=== PATIENT | male | born 1960 | race Caucasian/White ===

== ENCOUNTER 2019-07-11 11:45 | Emergency (ER) | payer OTHER, SELFPAY ==
[2019-07-11] VITALS (14 sets, daily range): BP systolic 127–156; BP diastolic 79–97; PULSE 85–111; RESP 18–27; TEMP 36.7; O2SAT 92–95
--- NOTE | ~2019-07-11 | CT_ITS ---
EXAMINATION: CTA chest PE protocol DATE: 07/11/2019 14:16 INDICATION: Shortness of breath, cough, right-sided chest pain TECHNIQUE: Computed tomography angiography (CTA) of the chest was performed with 100 mL Omnipaque-350 intravenous contrast timed to evaluate the pulmonary arteries. Coronal maximum intensity projection 3D-reconstructions were created by the technologist. Automated exposure control and iterative reconst ruction technique were employed. Exam dose: 660.27 mGy-cm total exam DLP. COMPARISON: 07/10/2021 view chest FINDINGS: There is diagnostic contrast enhancement of the pulmonary arteries and no evidence of pulmo nary embolism. Normal heart size. No pericardial or pleural effusion. No hilar or mediastinal mass lesion or lymphadenopathy. There is elevation of the right leaf of the diaphragm. There is mild atelectasis at the right lung ba se. Moderate emphysematous changes are noted. Normal morphology of the adrenal glands. There are healing anterior right third through fifth rib fractures. Diffuse idiopathic skeletal hyperostosis of the thoracic and lumbar spine. IMPRESSION: No evidence of pulmonary embolism Elevated right diaphragm and mild atelectasis at the right lung base Healing anterior right third through fifth rib fractures Reviewed, dictated and finalized at [facility]. Reviewed, dictated and finalized at [facility].
--- NOTE | ~2019-07-11 | XR_ITS ---
EXAMINATION: XR chest 2V EXAM DATE: 07/11/2019 13:13 INDICATION: Cough and shortness of breath. TECHNIQUE: Frontal and lateral projections of the chest obtained and reviewed. Comparison is made to prior examination from 10/24/2012. FINDINGS: The lungs are clear. There are no pleural effusions. The cardiomediastinal silhouette is within normal limits. There is no pneumothorax suspected. Mild to moderate-sized thoracolumbar endp late osteophytes. IMPRESSION: No acute cardiopulmonary findings. Reviewed, dictated and finalized at [facility].
--- NOTE | 2019-07-11 12:09 | ED.SOB ---
HPI - SOB/Dyspnea General Chief Complaint: Shortness of Breath/Dyspnea Stated Complaint: sob Time Seen by Provider: 07/11/19 12:02 Source: patient and RN notes reviewed Mode of arrival: ambulatory Limitations: no limitations History of Present Illness HPI Narrative: Pt is a 58 y/o male who presents to the ED with c/o intermittent SOB for roughly the past year. He notes that he was diagnosed with bronchitis in March of 2018, and states that he has had intermittent SOB ever since. Pt notes that he has been following with his PCP, Dr. Baron, for his symptoms, and states that he has been using an inhaler at home. He notes that he developed upper respiratory symptoms roughly 1 month ago, and states that he was evaluated by his PCP and placed on a Z-Lenin. Pt notes that his SOB is aggravated with exertion and laying down. He reports wheezing, a cough, and intermittent rt sided chest pain accompanying his SOB, but denies any fever, nausea, vomiting, or LE edema. Pt states that he only experiences pain in his chest when he coughs. He denies any recent travel. Pt notes that he smokes roughly 1 PPD. MD elicited complaint: shortness of breath Pertinent past history: other (bronchitis) Onset (ago): year(s) (1) Context: recent illness Exacerbating factors: lying flat and exertion Associated symptoms: chest pain (rt sided chest pain secondary to cough), cough and wheezing Related Data Allergies Allergy/AdvReac Type Severity Reaction Status Date / Time No Known Allergies Allergy Mild Verified 09/04/09 15:08 Review of Systems Review of Systems: All systems reviewed & are unremarkable except as noted in HPI and below Constitutional: Constitutional: Denies fever(s) Cardiovascular: Cardiovascular: Denies leg edema Respiratory: Respiratory: Reports cough, Reports pain with cough (rt sided chest pain secondary to cough), Reports dyspnea and Reports wheezing Gastrointestinal: Gastrointestinal: Denies nausea and Denies vomiting PMFSH Past Medical History Medical History (Updated 07/11/19 @ 14:56 by Eunice Chavez MD) Bronchitis HLD (hyperlipidemia) Surgical History Surgical History History of dental surgery Family History Family History (Updated 07/17/13 @ 08:43 by DOCTOR UNKNOWN) Other Diabetes mellitus Family history of arthritis Family history of mental disorder Family history of seizure disorder Hypertension Social History Social History Smoking packs per day: 1 Smoking cigarettes per day: 20.0 Smoking status: Current every day smoker Alcohol intake: current Exam Const: General: alert Orientation/consciousness: patient oriented x3 Eyes: Pupils: Equal, round and reactive pupils present Neck: Neck: normal visual inspection Chest: Chest palpation & inspection: normal inspection of the chest Resp: Effort & Inspection: normal respiratory effort and able to speak in complete sentences Auscultation: no rales, wheezes (intermittent audible) and diminished lung sounds on the right Cardio: Rate: regular rate Rhythm: regular rhythm Heart sounds: no murmurs GI: GI Palp: Yes Soft to palpation, No Tenderness to palpation present (GI) and No Guarding due to palpation present (GI) Back/Spine/Pelvis: Back: no CVA tenderness Skin: General skin exam: normal color Rashes: no rashes Neuro: General: patient oriented x3 and moves all extremities Course Reevaluation(s) Reevaluation #1: Patient states he feels mildly better but he is still sob. I discussed with patient and no wheezing heard to explain sob so I recommend CT. HE is agreeable to rule out occult pneumonia or PE Date: 07/11/19 Time: 14:01 Reevaluation #2: I have discussed with patient CT shows healing rib fractures, emphysema. He states he fell a couple of months ago so this explains his pain to right side of chest. Date: 07/11/19 Time: 14
--- NOTE | 2019-07-11 12:21 | ECG_ITS ---
Measurements Intervals [place] Rate: 114 P: 50 WA: 159 QRS: 39 QRSD: 104 T: 35 QT: 320 QTc: 442 Interpretive Statements SINUS TACHYCARDIA DELAYED PRECORDIAL R/S TRANSITION ABNORMAL ECG Electronically Signed On 07-11-2019 12:58:57 CDT by Junior Adkins D.O.
[2019-07-11 12:42] LABS: Basophils Absolute Auto 0.1 K/mm3 (0.0-0.1); Basophils Percent Auto 1.9 % (0.2-1.2); Eosinophils Absolute Auto 0.2 K/mm3 (0-0.3); Hematocrit 46.9 % (42.0-52.0); Hemoglobin 15.6 g/dL (14.0-18.0); Immature Granulocyte Absolute 0.02 K/mm3 (0.00-0.031); Immature Granulocyte Percent A 0.3 % (0-0.5); Lymphocytes Absolute Auto 2.62 K/mm3 (0.9-3.2); Lymphocytes Percent Auto 37.6 % (18.3-44.2); Mean Corpuscular HGB Conc 33.3 g/dl (32-36); Mean Corpuscular Hemoglobin 33.4 pg (26-34); Mean Corpuscular Volume 100.4 fl (80-100); Mean Platelet Volume 8.9 fl (7.4-10.4); Monocytes Absolute Auto 0.6 K/mm3 (0.1-0.6); Monocytes Percent Auto 9.2 % (2.6-8.5); Neutrophils Absolute Auto 3.3 K/mm3 (1.3-6.7); Platelet Count Result 363 k/mm3 (150-375); Red Blood Count 4.67 M/mm3 (4.6-6.20); Red Cell Distribution Width 13.8 % (11.5-14.5)
[2019-07-11 12:47] LABS: Alveolar/Arterial O2 Gradient 35.1 mmHg; Base Excess ABG 0.7 mEq/l (+/-2.0); Carboxyhemoglobin 5.4 % THb (0-2.0); Fractional Inspired Oxygen 21 %; HCO3 ABG 25.7 mEq/l (22.0-26.0); Methemoglobin ABG 0.3 %THb (0-1.5); Oxygen Content ABG 19.1 %vol (16.0-22.0); Oxygen Saturation ABG 92.5 % (95.0-100.0); Oxyhemoglobin 86.8 % THb (90.0-100.0); PCO2 ABG 42.2 mmHg (35.0-45.0); PO2 ABG 64.1 mmHg (80.0-100.0); PO2 FiO2 Ratio Arterial Blood 3.05 %; Reduced Hemoglobin 7.5 %THb (0-5.0); Total Hemoglobin 15.7 g/dL (12.0-18.0); pH ABG 7.402 (7.350-7.450)
[2019-07-11 12:48] LABS: Device ROOM AIR; Modified Allen's Test Pass; Site Drawn RIGHT RADIAL
[2019-07-11] MEDS: ALBUTEROL SULFATE NEB 2.5 MG/0.5 ML INH 5 MG INHALATION (12:48)
[2019-07-11] MEDS: IPRATROPIUM BR 0.02% INH SOLN 0.5 MG/2.5 ML VIAL INHALATION (12:49)
[2019-07-11] MEDS: predniSONE 20 MG TABLET 60 MG PO (12:51)
[2019-07-11 12:55] LABS: Lactic Acid Reflex 1.8 mmol/L (0.7-2.1)
[2019-07-11 12:55] LABS: Alanine Aminotransferase 50 U/L (4-50); Alkaline Phosphatase 96 U/L (38-126); Aspartate Amino Transferase 61 U/L (17-59); Bilirubin,Total 0.4 mg/dL (0.2-1.3); Blood Urea Nitrogen 11 mg/dL (9-20); Calcium 8.8 mg/dL (8.4-10.2); Carbon Dioxide 28 mmol/L (22-30); Chloride 103 mmol/L (98-107); Estimated CRCL calculation 100 ml/min; Estimated Glomerular Filt Rate > 60; Glucose 95 mg/dL (75-110); Sodium 139 mmol/L (137-145)
== END 2019-07-11 15:13 | disposition home or self-care (01) ==
PROVIDERS: Emergency Provider General Practice; PCP Orthopaedic Surgery
DX: S22.41XA Multiple fractures of ribs, right side, initial encounter for closed fracture (principal); R00.0 Tachycardia, unspecified; F17.210 Nicotine dependence, cigarettes, uncomplicated; X58.XXXA Exposure to other specified factors, initial encounter
CPT/HCPCS: 36415; 36600; 71046; 71275; 80053; 82375; 82805; 83050; 83605; 85025; 87804; 93005; 99284; J7512; Q9967

== ENCOUNTER 2022-06-18 15:50 | Observation (INO) | payer MEDICARE, MEDICAID, SELFPAY ==
[2022-06-18] VITALS (9 sets, daily range): BP systolic 127–177; BP diastolic 88–96; PULSE 70–120; RESP 16–24; TEMP 36.8–37.4; O2SAT 94–98; BMI 30.1
--- NOTE | ~2022-06-18 | US_ITS ---
US venous doppler [facility] DATE: 06/19/2022 09:21 INDICATION: Swelling of the lower extremities TECHNIQUE: Real-time and color flow imaging and Doppler analysis of the veins of the lower extremitie s COMPARISON: None FINDINGS: The greater saphenous veins are patent. There is spontaneous and phasic flow and normal aug mentation and color flow signal and normal compression of the deep veins of the lower extremities. IMPRESSION: No evidence of deep venous thrombosis of the lower extremities Reviewed, dictated and finalized at [facility]. Reviewed, dictated and finalized at location [facility]. CE JUDGE
--- NOTE | ~2022-06-18 | XR_ITS ---
EXAMINATION: XR chest 2V DATE: 06/18/2022 17:18 INDICATION: Chest pain. Shortness of breath. TECHNIQUE: Frontal and lateral views of the chest were obtained. COMPARISON: Chest 2 views 07/11/2019, chest CT 07/11/2019 FINDINGS: There are lucencies in the lungs, consistent with emphysema. There is mild atelectasis at t he lung bases. No pleural effusion or pneumothorax. The heart size is normal. There are multiple old healed left rib fractures. IMPRESSION: 1. Emphysema. 2. Mild atelectasis at the lung bases. Reviewed, dictated and finalized at location [facility]. SPLITTER
--- NOTE | 2022-06-18 15:56 | ECG_ITS ---
Measurements Intervals [place] Rate: 109 P: 54 SD: 157 QRS: 14 QRSD: 102 T: 55 QT: 328 QTc: 442 Interpretive Statements SINUS TACHYCARDIA POOR R-WAVE PROGRESSION ABNORMAL RHYTHM ECG COMPARED TO ECG 07/11/2019 11:54:39 NO SIGNIFICANT CHANGES Electronically Signed On 06-19-2022 7:49:44 [employer] by Bhupinder Khan M.D.
[2022-06-18 16:15] LABS: Basophils Absolute Auto 0.1 K/mm3 (0.0-0.1); Basophils Percent Auto 0.6 % (0.2-1.2); Eosinophils Absolute Auto 0.2 K/mm3 (0-0.3); Eosinophils Percent Auto 1.7 % (0-4.4); Hematocrit 34.3 % (42.0-52.0); Hemoglobin 11.7 g/dL (14.0-18.0); Immature Granulocyte Absolute 0.09 K/mm3 (0.00-0.031); Immature Granulocyte Percent A 0.7 % (0-0.5); Lymphocytes Percent Auto 36.8 % (18.3-44.2); Mean Corpuscular HGB Conc 34.1 g/dl (32-36); Mean Corpuscular Hemoglobin 33.9 pg (26-34); Mean Corpuscular Volume 99.4 fl (80-100); Mean Platelet Volume 8.3 fl (7.4-10.4); Monocytes Absolute Auto 1.2 K/mm3 (0.1-0.6); Monocytes Percent Auto 9.4 % (2.6-8.5); Neutrophils Absolute Auto 6.5 K/mm3 (1.3-6.7); Neutrophils Percent Auto 50.8 % (45.5-73.1); Platelet Count Result 463 k/mm3 (150-375); Red Blood Count 3.45 M/mm3 (4.6-6.20); Red Cell Distribution Width 14.4 % (11.5-14.5); White Blood Count 12.8 K/mm3 (4.5-10.0)
[2022-06-18] MEDS: methylPREDNISolone SOD SUCC 125 MG VIAL IV PUSH (16:37)
[2022-06-18] MEDS: ALBUTEROL SULFATE NEB 2.5 MG/3 ML INH INHALATION ×2 (16:57→19:44)
[2022-06-18 17:42] LABS: NT Pro B Type Natriuretic Pept 907 pg/mL (19.9-100)
[2022-06-18 18:19] LABS: Influenza A QL RT-PCR Negative (Negative); Influenza B QL RT-PCR Negative (Negative); SARS-CoV-2 RNA PCR Negative
[2022-06-18 18:27] LABS: Alanine Aminotransferase 26 U/L (6-50); Albumin Level 3.7 g/dL (3.5-5.1); Alkaline Phosphatase 85 U/L (38-126); Anion Gap 10 mmol/L (8-16); Aspartate Amino Transferase 30 U/L (17-59); Bilirubin,Total 0.3 mg/dL (0.2-1.3); Blood Urea Nitrogen 33 mg/dL (9-20); Calcium 8.5 mg/dL (8.4-10.2); Carbon Dioxide 25 mmol/L (22-30); Chloride 104 mmol/L (98-107); Estimated CRCL calculation 76 ml/min; Estimated Glomerular Filt Rate > 60; Glucose 78 mg/dL (65-110); Potassium 4.6 mmol/L (3.4-5.0); Sodium 139 mmol/L (137-145)
--- NOTE | 2022-06-18 18:55 | ED.GENADULT ---
HPI - General Adult General Chief complaint: Shortness of Breath/Dyspnea Stated complaint: sob Time Seen by Provider: 06/18/22 16:08 Source: patient Mode of arrival: ambulatory Limitations: no limitations History of Present Illness HPI narrative: 61-year-old with a history of hypertension, COPD, respiratory failure with a complaint of shortness of breath for past few weeks was admitted to [facility] and discharged 2 days ago he still feels short of breath. He denies any fever or chest pain at this time. He states that his legs are swollen. He was given prescriptions at [facility] and he is not sure about the name of the medication. He denies any fever or cough. Onset (ago): week(s) Severity: moderate Pain Consistency: constant Relieving factors: none Exacerbating factors: none Associated symptoms: denies other symptoms Related Data Allergies Allergy/AdvReac Type Severity Reaction Status Date / Time No Known Allergies Allergy Mild Verified 09/04/09 15:08 Review of Systems Review of Systems: All systems reviewed & are unremarkable except as noted in HPI and below Constitutional: Constitutional: Reports no additional constitutional complaints Eyes: Eyes: Reports no additional eye complaints ENT: Reports system reviewed and no additional complaints, except as documented Cardiovascular: Cardiovascular: Reports no additional cardiovascular complaints Respiratory: Respiratory: Reports as per HPI Gastrointestinal: Gastrointestinal: Reports no additional gastrointestinal complaints Genitourinary: Genitourinary: Reports no additional male genitourinary complaints Musculoskeletal: Musculoskeletal: Reports no additional musculoskeletal complaints PMFSH Past Medical History Medical History Bronchitis HLD (hyperlipidemia) Surgical History Surgical History History of dental surgery Family History Family History Other Diabetes mellitus Family history of arthritis Family history of mental disorder Family history of seizure disorder Hypertension Social History Social History Smoking packs per day: 1 Smoking cigarettes per day: 20.0 Smoking status: Current every day smoker Alcohol intake: current Exam Narrative: GENERAL: Well-appearing, well-nourished, and in no acute distress. HEAD: Normocephalic, atraumatic. EYES: PERRLA and EOMI. NECK: Supple. CHEST: Decreased air entry, HEART: Regular rate and rhythm. No murmur heard. Normal peripheral pulses. ABDOMEN: Soft, nontender, nondistended, normal active bowel sounds. EXTREMITIES: Normal range of motion. 2 plus edema SKIN: Warm, dry, no rash. NEURO: No focal deficits. Alert and oriented x3. PSYCH: Normal mood and affect. Course Course Emergency Course: Patient did receive IV Solu-Medrol and DuoNeb he started feeling better but he states he cannot manage at home reports to be admitted overnight. I did inform him about his lab work . Discussed with Debbie clement the patient Vital Signs Vital signs: Vital Signs Temperature 37.4 C 06/18/22 15:52 Pulse Rate 120 H 06/18/22 15:52 Respiratory Rate 24 H 06/18/22 15:52 Blood Pressure 177/94 H 06/18/22 15:52 Pulse Oximetry 95 06/18/22 15:52 Oxygen Delivery Room Air 06/18/22 15:52 Temperature 37.4 C 06/18/22 15:52 Pulse Rate 107 H 06/18/22 16:59 Respiratory Rate 19 06/18/22 16:59 Blood Pressure 127/92 H 06/18/22 16:40 Pulse Oximetry 96 06/18/22 16:40 Oxygen Delivery Room Air 06/18/22 16:22 Medical Decision Making [facility] Narrative Medical decision making narrative: 61-year-old with a history of COPD, CHF here with shortness of breath we will give her DuoNeb, IV Solu-Medrol obtain cardiac work-up. Differential Diagnosis Different
--- NOTE | 2022-06-18 19:30 | PM.IMHP ---
H&P: HPI History of Present Illness Date/Time: 06/18/22 19:30 Chief Complaint: Shortness of breath. Narrative: This is a 61-year-old male smoker with COPD, congestive heart failure, and history of DVT who presented to the emergency department from home for evaluation of shortness of breath. Patient provides the following history. He was recently admitted to [facility] and discharged 2 days ago with what sounds like a COPD exacerbation. He was still short of breath on discharge and he continues to have a nonproductive cough. His legs are swollen which is not necessarily unusual for him the thinks they may be a bit more swollen than usual. He also complains of a headache. He denies fever, chills, sweats, sinus congestion, sore throat, chest and pleuritic pain, orthopnea, paroxysmal nocturnal dyspnea, vomiting, and diarrhea. No known sick contacts. Vital signs were stable on arrival to the ED, he is not requiring oxygen. Pertinent labs include a WBC of 12.8, hemoglobin 11.7, normal electrolytes, proBNP 907. He tested negative for COVID and influenza. Chest x-ray shows emphysema and mild atelectasis at the lung bases. EKG showed sinus tachycardia without acute ST segment changes. He was given a nebulizer and a dose of IV Solu-Medrol in the ED but he did not feel much better and he requested admission. Review of Systems Review of Systems: Twelve systems were reviewed and are negative except for as per HPI. [facility] Past Medical History Medical History (Updated 06/18/22 @ 23:39 by Gisela Todd PA-C) Chronic obstructive pulmonary disease Deep venous thrombosis Heart failure of unknown type Hyperlipidemia Hypertension Tobacco abuse Surgical History Surgical History History of dental surgery Family History Family History Other Diabetes mellitus Family history of arthritis Family history of mental disorder Family history of seizure disorder Hypertension Social History Social History (Updated 06/18/22 @ 23:33 by Gisela Todd PA-C) Social History: Surrogate medical decision maker: None. Code status: Full code. Smoking packs per day: 1 Smoking cigarettes per day: 20.0 Smoking status: Current every day smoker Alcohol intake: current Alcohol use details: Social alcohol in moderation. Additional living arrangements comments: Lives in [place]. Additional occupation/education comments: Disabled. Meds Home Medications and Allergies Home Medications Medication Instructions Recorded Confirmed Type albuterol sulfate 90 mcg/actuation 2 puff inhalation QID PRN 07/11/19 06/18/22 Rx aerosol inhaler (ProAir HFA) shortness of breath or wheezing #8 grams prednisone 10 mg tablets in a dose See Taper PO DAILY 12 days #42 tabs 07/11/19 06/18/22 Rx pack budesonide-formoterol HFA 160 2 puff inhalation BID 06/18/22 06/18/22 History mcg-4.5 mcg/actuation aerosol inhaler (Symbicort) citalopram 20 mg tablet 20 mg PO DAILY 06/18/22 06/18/22 History cyclobenzaprine 10 mg tablet 10 mg PRN 06/18/22 06/18/22 History famotidine 40 mg tablet 10 mg PO HS 06/18/22 06/18/22 History fenofibrate micronized 200 mg 200 mg PO DAILY 06/18/22 06/18/22 History capsule fexofenadine 180 mg tablet 180 mg PO DAILY 06/18/22 06/18/22 History fluticasone 250 mcg-salmeterol 50 1 inh inhalation BID 06/18/22 06/18/22 History mcg/dose blistr powdr for inhalation (Advair Diskus) folic acid 1 mg tablet 1 mg PO DAILY 06/18/22 06/18/22 History furosemide 80 mg tablet 80 mg PO DAILY 06/18/22 06/18/22 History guaifenesin 600 mg tablet, 600 mg PO BID 06/18/22 06/18/22 History extended release 12 hr (Mucus Relief ER) hydroxyzine HCl 10 mg tablet 10 mg PO TID 06/18/22 06/18/22 History ipratropium bromide 17 2 puff inhalation 4-6XD 06/18/22 06/18/22 History mcg/actuation HFA aer
[2022-06-18] MEDS: LORazepam (*CRX) 1 MG TABLET PO (19:37)
[2022-06-18] MEDS: IPRATROPIUM BR 0.02% INH SOLN 0.5 MG/2.5 ML VIAL INHALATION (19:44)
[2022-06-19] VITALS (11 sets, daily range): BP systolic 141–162; BP diastolic 88–92; PULSE 66–104; RESP 18–22; TEMP 36.6–36.8; O2SAT 92–99
[2022-06-19] MEDS: FAMOTIDINE 10 MG TABLET PO ×2 (00:40→20:53)
[2022-06-19] MEDS: traZODone HCL 50 MG TABLET 100 MG PO ×2 (00:40→20:52)
[2022-06-19] MEDS: SIMVASTATIN 20 MG TABLET 40 MG PO ×2 (00:40→20:53)
[2022-06-19] MEDS: IPRATROPIUM BR 0.02% INH SOLN 0.5 MG/2.5 ML VIAL INHALATION ×4 (03:23→20:22)
[2022-06-19] MEDS: ALBUTEROL SULFATE NEB 2.5 MG/3 ML INH INHALATION ×4 (03:23→20:22)
--- NOTE | 2022-06-19 04:47 | PC.NURSE ---
Pt is a&o x4, able to make needs known. Pt is presenting with labored breathing, stating to be SOB. Pt's O2 sat on room air 89% per spot check. 1L n/c applied, O2 sat 92 - 93%. Pt reported improvement in quality of breathing. Pt comfortable in his bed and call light within the reach. Pt educated about COPD exacerbation, understanding verbalized.
[2022-06-19 06:59] LABS: Hematocrit 34.8 % (42.0-52.0); Hemoglobin 10.9 g/dL (14.0-18.0); Mean Corpuscular HGB Conc 31.3 g/dl (32-36); Mean Corpuscular Hemoglobin 32.9 pg (26-34); Mean Corpuscular Volume 105.1 fl (80-100); Mean Platelet Volume 9.6 fl (7.4-10.4); Platelet Count Result 380 k/mm3 (150-375); Red Blood Count 3.31 M/mm3 (4.6-6.20); Red Cell Distribution Width 14.6 % (11.5-14.5)
[2022-06-19] MEDS: UMECLIDINIUM BROMIDE 62.5 MCG ELLIPTA 1 PUFF INHALATION (07:06)
[2022-06-19] MEDS: FLUTICASONE/SALMETEROL 115-21 MCG INHALER 1 PUFF 2 PUFF INHALATION ×2 (07:06→20:24)
[2022-06-19 07:09] LABS: Anion Gap 4 mmol/L (8-16); Blood Urea Nitrogen 28 mg/dL (9-20); Calcium 8.9 mg/dL (8.4-10.2); Carbon Dioxide 29 mmol/L (22-30); Chloride 98 mmol/L (98-107); Estimated CRCL calculation 94 ml/min; Estimated Glomerular Filt Rate > 60; Glucose 124 mg/dL (65-110); Magnesium 1.5 mg/dL (1.6-2.3); Potassium 5.1 mmol/L (3.4-5.0); Sodium 131 mmol/L (137-145)
[2022-06-19] MEDS: FUROSEMIDE 80 MG TABLET PO (08:09)
[2022-06-19] MEDS: hydrOXYzine HCL 10 MG TABLET PO (08:09)
[2022-06-19] MEDS: POTASSIUM CHLORIDE 20 MEQ TABLET.ER PO (08:09)
[2022-06-19] MEDS: VITAMIN B CMPLX/VIT C/FOLIC AC 1 CAPSULE 1 CAP PO (08:10)
[2022-06-19] MEDS: THERAPEUTIC MULTIVITAMINS/MINERALS TAB (*BKC) 1 TABLET PO (08:10)
[2022-06-19] MEDS: PANTOPRAZOLE 40 MG TABLET PO (08:10)
[2022-06-19] MEDS: predniSONE 20 MG TABLET 40 MG PO (08:10)
[2022-06-19] MEDS: THIAMINE HCL 100 MG TABLET PO (08:10)
[2022-06-19] MEDS: PROPRANOLOL HCL 40 MG TABLET PO ×2 (08:10→20:52)
[2022-06-19] MEDS: LORATADINE 10 MG TABLET PO (08:12)
[2022-06-19] MEDS: guaiFENesin 12 HR 600 MG TABCR PO ×2 (08:12→20:53)
[2022-06-19] MEDS: FENOFIBRATE 160 MG TABLET PO (08:12)
[2022-06-19] MEDS: LOSARTAN POTASSIUM 25 MG TABLET PO ×2 (08:12→16:18)
[2022-06-19] MEDS: CITALOPRAM HYDROBROMIDE 20 MG TABLET PO (08:12)
[2022-06-19] MEDS: FOLIC ACID 1 MG TABLET PO (08:13)
--- NOTE | 2022-06-19 15:23 | PM.IMPN ---
Progress Note: A&P Assessment and Plan (1) COPD exacerbation: Code(s): J44.1 - Chronic obstructive pulmonary disease with (acute) exacerbation Status: Acute (2) Heart failure of unknown type: Code(s): I50.9 - Heart failure, unspecified Status: Acute (3) Hypertension: Code(s): I10 - Essential (primary) hypertension Status: Acute (4) Hyperlipidemia: Code(s): E78.5 - Hyperlipidemia, unspecified Status: Acute (5) Tobacco abuse: Code(s): Z72.0 - Tobacco use Status: Acute (6) Lower extremity edema: Code(s): R60.0 - Localized edema Status: Acute Plan Shortness of breath for past few weeks Acute cOPD exacerbation Solu Medrol given in the ER prednisone. Continue bronchodilators Possible CHF goes exacerbation Lower extremity edema venous duplex negative Hypertension Hyperlipidemia COPD Current tobacco abuse History of DVT BNP 907 Negative COVID and influenza Chest x-ray with emphysema and mild atelectasis at the lung bases DVT prophylaxis Lovenox Subjective Date/time seen: 06/19/22 15:23 Interval history: Feels a bit better today. Shortness of breath has improved. His as some cough. Does know his home medication. Review of Systems Review of Systems: All systems reviewed & are unremarkable except as noted in HPI and below Exam Narrative: General: Chronically ill-appearing male sitting at the side of the bed in no acute distress. On oxygen via nasal cannula HEENT: PERRL, EOMI. Sclera anicteric. Moist mucous membranes. Neck: Supple. No JVD or lymphadenopathy. Respiratory: He does not appear in respiratory distress and is speaking in full sentences. Lung sounds are diminished throughout with faint expiratory wheezing. Cardiovascular: Regular rate and rhythm with S1-S2. Gastrointestinal: Abdomen is soft, nontender, and nondistended with positive bowel sounds. Skin: Warm and dry. Skin changes of the lower legs bilaterally. Extremities: No cyanosis or clubbing. 2+ pitting edema to the knees. No palpable knots or cords. Equivocal Homans sign. Neurological: Alert. Cranial nerves 2-12 are grossly intact. No gross focal deficits to casual conversation. Psychiatric: Cooperative. Appropriate mood. Odd affect. Objective Data Vital Signs Vital Signs: Vital Signs - 24 hr 06/18/22 15:52 06/18/22 16:22 06/18/22 16:40 Temperature 99.3 F Pulse Rate 120 H 108 H Respiratory Rate 24 H 22 H Blood Pressure 177/94 H 127/92 H Pulse Oximetry 95 96 96 Oxygen Delivery Room Air Room Air Oxygen Flow Rate 06/18/22 16:59 06/18/22 19:46 06/18/22 19:47 Temperature Pulse Rate 107 H 98 98 Respiratory Rate 19 16 16 Blood Pressure Pulse Oximetry 98 Oxygen Delivery Room Air Oxygen Flow Rate 06/18/22 21:36 06/18/22 22:00 06/19/22 03:40 Temperature 98.2 F Pulse Rate 85 96 70 Respiratory Rate 20 22 H 22 H Blood Pressure 147/96 H 167/88 H Pulse Oximetry 96 94 Oxygen Delivery Oxygen Flow Rate 06/18/22 23:37 06/19/22 06:00 06/19/22 07:09 Temperature 98 F Pulse Rate 70 104 H 76 Respiratory Rate 22 H 20 18 Blood Pressure 162/88 H Pulse Oximetry 94 97 Oxygen Delivery Nasal Cannula Oxygen Flow Rate 1 06/19/22 08:10 06/19/22 14:04 06/19/22 14:00 Temperature 98.3 F Pulse Rate 97 78 69 Respiratory Rate 18 18 Blood Pressure 148/92 H Pulse Oximetry 99 Oxygen Delivery Oxygen Flow Rate Intake/Output Intake/Output: Intake & Output 06/16/22 06/17/22 06/18/22 06/19/22 23:59 23:59 23:59 23:59 Intake Total 360 Output Total 950 Balance -590 Meds/Results Medications: Active Medications Generic Name Dose Route Start Last Admin Trade Name Freq PRN Reason Stop Dose Admin Acetaminophen 650 mg 06/18/22 19:08 Acetaminophen 325 Mg Tablet PO Q4H PRN Mild Pain (1-3) or Fever Albuterol 2.5 mg 06/18/22 20:00 06/19/22 14:03 Albuterol Sulfate Neb 2
[2022-06-19] MEDS: MAGNESIUM SULF 2 GM/WATER 50ML 2 GM/50 ML BAG IVPB (16:14)
[2022-06-20] VITALS (15 sets, daily range): BP systolic 121–146; BP diastolic 80–88; PULSE 69–94; RESP 17–20; TEMP 36.4–36.9; O2SAT 92–93
[2022-06-20] MEDS: IPRATROPIUM BR 0.02% INH SOLN 0.5 MG/2.5 ML VIAL INHALATION ×4 (02:06→19:32)
[2022-06-20] MEDS: ALBUTEROL SULFATE NEB 2.5 MG/3 ML INH INHALATION ×4 (02:07→19:32)
[2022-06-20 06:38] LABS: Alanine Aminotransferase 23 U/L (6-50); Albumin Level 3.6 g/dL (3.5-5.1); Alkaline Phosphatase 74 U/L (38-126); Anion Gap 1 mmol/L (8-16); Aspartate Amino Transferase 27 U/L (17-59); Bilirubin,Total 0.9 mg/dL (0.2-1.3); Blood Urea Nitrogen 29 mg/dL (9-20); Calcium 9.1 mg/dL (8.4-10.2); Carbon Dioxide 33 mmol/L (22-30); Chloride 98 mmol/L (98-107); Estimated CRCL calculation 67 ml/min; Estimated Glomerular Filt Rate > 60; Glucose 81 mg/dL (65-110); Magnesium 1.9 mg/dL (1.6-2.3); Potassium 3.9 mmol/L (3.4-5.0); Sodium 132 mmol/L (137-145)
[2022-06-20 06:42] LABS: Basophils Percent Auto 0.3 % (0.2-1.2); Eosinophils Percent Auto 0.4 % (0-4.4); Hematocrit 33.7 % (42.0-52.0); Immature Granulocyte Absolute 0.05 K/mm3 (0.00-0.031); Immature Granulocyte Percent A 0.5 % (0-0.5); Lymphocytes Percent Auto 26.9 % (18.3-44.2); Mean Corpuscular HGB Conc 32.6 g/dl (32-36); Mean Corpuscular Hemoglobin 33.2 pg (26-34); Mean Corpuscular Volume 101.8 fl (80-100); Mean Platelet Volume 8.8 fl (7.4-10.4); Monocytes Percent Auto 8.8 % (2.6-8.5); Neutrophils Absolute Auto 6.8 K/mm3 (1.3-6.7); Neutrophils Percent Auto 63.1 % (45.5-73.1); Platelet Count Result 452 k/mm3 (150-375); Red Blood Count 3.31 M/mm3 (4.6-6.20); Red Cell Distribution Width 14.4 % (11.5-14.5); White Blood Count 10.8 K/mm3 (4.5-10.0)
[2022-06-20] MEDS: FLUTICASONE/SALMETEROL 115-21 MCG INHALER 1 PUFF 2 PUFF INHALATION ×2 (09:09→19:32)
[2022-06-20] MEDS: UMECLIDINIUM BROMIDE 62.5 MCG ELLIPTA 1 PUFF INHALATION (09:12)
[2022-06-20] MEDS: predniSONE 20 MG TABLET 40 MG PO (09:49)
[2022-06-20] MEDS: POTASSIUM CHLORIDE 20 MEQ TABLET.ER PO (09:49)
[2022-06-20] MEDS: ENOXAPARIN 40 MG/0.4 ML SYRINGE SUB-Q (09:51)
[2022-06-20] MEDS: CITALOPRAM HYDROBROMIDE 20 MG TABLET PO (09:51)
[2022-06-20] MEDS: FENOFIBRATE 160 MG TABLET PO (09:52)
[2022-06-20] MEDS: LORATADINE 10 MG TABLET PO (09:52)
[2022-06-20] MEDS: FUROSEMIDE 80 MG TABLET PO (09:52)
[2022-06-20] MEDS: FOLIC ACID 1 MG TABLET PO (09:52)
[2022-06-20] MEDS: hydrOXYzine HCL 10 MG TABLET PO ×3 (09:52→17:45)
[2022-06-20] MEDS: THERAPEUTIC MULTIVITAMINS/MINERALS TAB (*BKC) 1 TABLET PO (09:56)
[2022-06-20] MEDS: VITAMIN B CMPLX/VIT C/FOLIC AC 1 CAPSULE 1 CAP PO (09:56)
[2022-06-20] MEDS: THIAMINE HCL 100 MG TABLET PO (09:56)
[2022-06-20] MEDS: PANTOPRAZOLE 40 MG TABLET PO (09:56)
[2022-06-20] MEDS: LOSARTAN POTASSIUM 25 MG TABLET PO ×2 (09:56→17:45)
[2022-06-20] MEDS: PROPRANOLOL HCL 40 MG TABLET PO ×2 (10:02→22:03)
[2022-06-20] MEDS: guaiFENesin 12 HR 600 MG TABCR PO ×2 (14:22→22:03)
[2022-06-20] MEDS: HYDROcodone/acetaminophen (*CRX) 5-325 MG TABLET 1 TAB PO ×2 (15:27→22:06)
--- NOTE | 2022-06-20 16:35 | PM.IMPN ---
Progress Note: A&P Assessment and Plan (1) COPD exacerbation: Code(s): J44.1 - Chronic obstructive pulmonary disease with (acute) exacerbation Status: Acute (2) Heart failure of unknown type: Code(s): I50.9 - Heart failure, unspecified Status: Acute (3) Hypertension: Code(s): I10 - Essential (primary) hypertension Status: Acute (4) Hyperlipidemia: Code(s): E78.5 - Hyperlipidemia, unspecified Status: Acute (5) Tobacco abuse: Code(s): Z72.0 - Tobacco use Status: Acute (6) Lower extremity edema: Code(s): R60.0 - Localized edema Status: Acute Plan Shortness of breath for past few weeks Acute cOPD exacerbation Solu Medrol given in the ER prednisone. Continue bronchodilators on oral prednisone will slowly taper Possible CHF goes exacerbation resumed Lasix home doses swelling improving chest x-ray with emphysema mild atelectasis at lung bases Lower extremity edema venous duplex negative continue Lasix as ordered Hypertension Hyperlipidemia COPD Current tobacco abuse History of DVT BNP 907 Negative COVID and influenza Chest x-ray with emphysema and mild atelectasis at the lung bases DVT prophylaxis Lovenox Subjective Date/time seen: 06/20/22 16:35 Interval history: No overnight events. Breathing is better. Complains of pain in his left foot. Shortness of breath have improved. Review of Systems Review of Systems: All systems reviewed & are unremarkable except as noted in HPI and below Exam Narrative: General: Chronically ill-appearing male sitting at the side of the bed in no acute distress. On oxygen via nasal cannula HEENT: PERRL, EOMI. Sclera anicteric. Moist mucous membranes. Neck: Supple. No JVD or lymphadenopathy. Respiratory: He does not appear in respiratory distress and is speaking in full sentences. Lung sounds are diminished throughout No wheezes Cardiovascular: Regular rate and rhythm with S1-S2. Gastrointestinal: Abdomen is soft, nontender, and nondistended with positive bowel sounds. Skin: Warm and dry. Skin changes of the lower legs bilaterally. Extremities: No cyanosis or clubbing. 2+ pitting edema to the knees. No palpable knots or cords Neurological: Alert. Cranial nerves 2-12 are grossly intact. No gross focal deficits to casual conversation. Psychiatric: Cooperative. Appropriate mood. Odd affect. Objective Data Vital Signs Vital Signs: Vital Signs - 24 hr 06/19/22 20:07 06/19/22 20:24 06/19/22 20:25 Temperature 98.3 F Pulse Rate 66 75 Respiratory Rate 20 18 Blood Pressure 141/89 H Pulse Oximetry 94 92 Oxygen Delivery Room Air 06/19/22 20:00 06/20/22 02:07 06/19/22 20:37 Temperature Pulse Rate 75 73 79 Respiratory Rate 18 18 18 Blood Pressure Pulse Oximetry 92 Oxygen Delivery Room Air 06/20/22 06:00 06/20/22 02:20 06/20/22 09:11 Temperature 97.8 F Pulse Rate 72 72 74 Respiratory Rate 20 18 18 Blood Pressure 146/84 H Pulse Oximetry 93 Oxygen Delivery 06/20/22 09:21 06/20/22 10:02 06/20/22 09:50 Temperature Pulse Rate 75 90 90 Respiratory Rate 18 Blood Pressure 139/80 Pulse Oximetry Oxygen Delivery 06/20/22 09:52 06/20/22 13:16 06/20/22 13:32 Temperature Pulse Rate 77 80 Respiratory Rate 18 18 Blood Pressure Pulse Oximetry Oxygen Delivery Room Air 06/20/22 14:00 Temperature 98.4 F Pulse Rate 79 Respiratory Rate 20 Blood Pressure 124/84 Pulse Oximetry 93 Oxygen Delivery Intake/Output Intake/Output: Intake & Output 06/17/22 06/18/22 06/19/22 06/20/22 23:59 23:59 23:59 23:59 Intake Total 1250 480 Output Total 950 Balance 300 480 Meds/Results Medications: Active Medications Generic Name Dose Route Start Last Admin Trade Name Freq PRN Reason Stop Dose Admin Acetaminophen 650 mg 06/18/22 19:08 Acetaminophen 325 Mg Tablet PO Q4H PRN Mild Pain (1-3) or Fever
[2022-06-20] MEDS: NICOTINE (*PBKC) 7 MG PATCH 1 PATCH TRANSDERM (17:44)
[2022-06-20] MEDS: FAMOTIDINE 10 MG TABLET PO (22:03)
[2022-06-20] MEDS: traZODone HCL 50 MG TABLET 100 MG PO (22:03)
[2022-06-20] MEDS: SIMVASTATIN 20 MG TABLET 40 MG PO (22:03)
[2022-06-21] VITALS (13 sets, daily range): BP systolic 104–127; BP diastolic 60–84; PULSE 70–102; RESP 14–20; TEMP 36–36.6; O2SAT 92–94
[2022-06-21 05:59] LABS: Basophils Percent Auto 0.3 % (0.2-1.2); Eosinophils Absolute Auto 0.1 K/mm3 (0-0.3); Eosinophils Percent Auto 0.5 % (0-4.4); Hemoglobin 11.5 g/dL (14.0-18.0); Immature Granulocyte Absolute 0.06 K/mm3 (0.00-0.031); Immature Granulocyte Percent A 0.6 % (0-0.5); Lymphocytes Absolute Auto 3.21 K/mm3 (0.9-3.2); Lymphocytes Percent Auto 30.5 % (18.3-44.2); Mean Corpuscular HGB Conc 32.9 g/dl (32-36); Mean Corpuscular Hemoglobin 33.4 pg (26-34); Mean Corpuscular Volume 101.7 fl (80-100); Mean Platelet Volume 8.7 fl (7.4-10.4); Monocytes Percent Auto 9.1 % (2.6-8.5); Neutrophils Absolute Auto 6.2 K/mm3 (1.3-6.7); Platelet Count Result 459 k/mm3 (150-375); Red Blood Count 3.44 M/mm3 (4.6-6.20); Red Cell Distribution Width 13.9 % (11.5-14.5); White Blood Count 10.5 K/mm3 (4.5-10.0)
[2022-06-21 06:10] LABS: Alanine Aminotransferase 22 U/L (6-50); Albumin Level 3.7 g/dL (3.5-5.1); Alkaline Phosphatase 71 U/L (38-126); Anion Gap 2 mmol/L (8-16); Aspartate Amino Transferase 22 U/L (17-59); Bilirubin,Total 0.8 mg/dL (0.2-1.3); Blood Urea Nitrogen 35 mg/dL (9-20); Carbon Dioxide 34 mmol/L (22-30); Chloride 94 mmol/L (98-107); Estimated CRCL calculation 59 ml/min; Estimated Glomerular Filt Rate 56; Glucose 75 mg/dL (65-110); Magnesium 1.8 mg/dL (1.6-2.3); Sodium 130 mmol/L (137-145)
[2022-06-21] MEDS: HYDROcodone/acetaminophen (*CRX) 5-325 MG TABLET 1 TAB PO ×2 (06:52→13:15)
[2022-06-21] MEDS: hydrOXYzine HCL 10 MG TABLET PO ×3 (08:40→17:34)
[2022-06-21] MEDS: guaiFENesin 12 HR 600 MG TABCR PO ×2 (08:40→21:04)
[2022-06-21] MEDS: FOLIC ACID 1 MG TABLET PO (08:40)
[2022-06-21] MEDS: FUROSEMIDE 80 MG TABLET PO (08:40)
[2022-06-21] MEDS: predniSONE 20 MG TABLET 40 MG PO (08:40)
[2022-06-21] MEDS: CITALOPRAM HYDROBROMIDE 20 MG TABLET PO (08:40)
[2022-06-21] MEDS: LORATADINE 10 MG TABLET PO (08:40)
[2022-06-21] MEDS: THERAPEUTIC MULTIVITAMINS/MINERALS TAB (*BKC) 1 TABLET PO (08:40)
[2022-06-21] MEDS: POTASSIUM CHLORIDE 20 MEQ TABLET.ER PO (08:40)
[2022-06-21] MEDS: LOSARTAN POTASSIUM 25 MG TABLET PO ×2 (08:40→17:34)
[2022-06-21] MEDS: FENOFIBRATE 160 MG TABLET PO (08:40)
[2022-06-21] MEDS: THIAMINE HCL 100 MG TABLET PO (08:41)
[2022-06-21] MEDS: VITAMIN B CMPLX/VIT C/FOLIC AC 1 CAPSULE 1 CAP PO (08:41)
[2022-06-21] MEDS: PROPRANOLOL HCL 40 MG TABLET PO ×2 (08:41→21:04)
[2022-06-21] MEDS: PANTOPRAZOLE 40 MG TABLET PO (08:41)
[2022-06-21] MEDS: ENOXAPARIN 40 MG/0.4 ML SYRINGE SUB-Q (08:45)
[2022-06-21] MEDS: ALBUTEROL SULFATE NEB 2.5 MG/3 ML INH INHALATION ×3 (10:23→21:44)
[2022-06-21] MEDS: IPRATROPIUM BR 0.02% INH SOLN 0.5 MG/2.5 ML VIAL INHALATION ×3 (10:23→21:44)
[2022-06-21] MEDS: UMECLIDINIUM BROMIDE 62.5 MCG ELLIPTA 1 PUFF INHALATION (10:24)
[2022-06-21] MEDS: FLUTICASONE/SALMETEROL 115-21 MCG INHALER 1 PUFF 2 PUFF INHALATION ×2 (10:24→21:44)
--- NOTE | 2022-06-21 15:42 | PM.IMPN ---
Progress Note: A&P Assessment and Plan (1) COPD exacerbation: Code(s): J44.1 - Chronic obstructive pulmonary disease with (acute) exacerbation Status: Acute (2) Heart failure of unknown type: Code(s): I50.9 - Heart failure, unspecified Status: Acute (3) Hypertension: Code(s): I10 - Essential (primary) hypertension Status: Acute (4) Hyperlipidemia: Code(s): E78.5 - Hyperlipidemia, unspecified Status: Acute (5) Tobacco abuse: Code(s): Z72.0 - Tobacco use Status: Acute (6) Lower extremity edema: Code(s): R60.0 - Localized edema Status: Acute Plan Shortness of breath for past few weeks negative for COVID and influenza chest x-ray with emphysema and mild atelectasis at lung bases Acute cOPD exacerbation Solu Medrol given in the ER prednisone. Continue bronchodilators on oral prednisone will slowly taper Possible CHF goes exacerbation resumed Lasix home doses swelling improving chest x-ray with emphysema mild atelectasis at lung bases. Leg swelling improving. BNP 907 Lower extremity edema venous duplex negative continue Lasix as ordered Hypertension Hyperlipidemia COPD Current tobacco abuse History of DVT DVT prophylaxis Lovenox Subjective Date/time seen: 06/21/22 15:42 Interval history: no overnight events. Still cough and shortness of breath. Pain in left foot is improved. Shortness of breath is improving. Not back to baseline He states. Review of Systems Review of Systems: All systems reviewed & are unremarkable except as noted in HPI and below Exam Narrative: General: Chronically ill-appearing male sitting at the side of the bed in no acute distress. Off oxygen now HEENT: PERRL, EOMI. Sclera anicteric. Moist mucous membranes. Neck: Supple. No JVD or lymphadenopathy. Respiratory: He does not appear in respiratory distress and is speaking in full sentences. Lung sounds are diminished throughout No wheezes Cardiovascular: Regular rate and rhythm with S1-S2. Gastrointestinal: Abdomen is soft, nontender, and nondistended with positive bowel sounds. Skin: Warm and dry. Skin changes of the lower legs bilaterally. Extremities: No cyanosis or clubbing. 1+ pitting edema to the knees improving. No palpable knots or cords Neurological: Alert. Cranial nerves 2-12 are grossly intact. No gross focal deficits to casual conversation. Psychiatric: Cooperative. Appropriate mood. Odd affect. Objective Data Vital Signs Vital Signs: Vital Signs - 24 hr 06/20/22 19:36 06/20/22 19:37 06/20/22 19:48 Temperature Pulse Rate 94 88 Respiratory Rate 18 18 Blood Pressure Pulse Oximetry 92 Oxygen Delivery Room Air 06/20/22 19:59 06/20/22 20:00 06/21/22 03:11 Temperature 97.5 F L 96.8 F L Pulse Rate 69 72 71 Respiratory Rate 17 18 18 Blood Pressure 121/88 121/78 Pulse Oximetry 92 93 92 Oxygen Delivery Room Air 06/21/22 08:41 06/21/22 08:40 06/21/22 10:28 Temperature Pulse Rate 75 75 75 Respiratory Rate Blood Pressure 127/84 Pulse Oximetry 93 Oxygen Delivery Room Air 06/21/22 10:28 06/21/22 08:40 06/21/22 10:40 Temperature Pulse Rate 75 78 Respiratory Rate 20 20 Blood Pressure Pulse Oximetry Oxygen Delivery Room Air 06/21/22 14:49 06/21/22 14:00 Temperature 97.9 F Pulse Rate 76 73 Respiratory Rate 20 14 Blood Pressure 122/81 Pulse Oximetry 93 Oxygen Delivery Intake/Output Intake/Output: Intake & Output 06/18/22 06/19/22 06/20/22 06/21/22 23:59 23:59 23:59 23:59 Intake Total 1250 720 840 Output Total 950 Balance 300 720 840 Meds/Results Medications: Active Medications Generic Name Dose Route Start Last Admin Trade Name Freq PRN Reason Stop Dose Admin Acetaminophen 650 mg 06/18/22 19:08 Acetaminophen 325 Mg Tablet PO Q4H PRN Mild Pain (1-3) or Fever Hydrocodone Bitart/Acetaminophen 1 tab 06/20/22 14:17 06/21/22 13
[2022-06-21] MEDS: FAMOTIDINE 10 MG TABLET PO (21:04)
[2022-06-21] MEDS: traZODone HCL 50 MG TABLET 100 MG PO (21:04)
[2022-06-21] MEDS: SIMVASTATIN 20 MG TABLET 40 MG PO (21:05)
[2022-06-22 06:00] VITALS: BP 129/101; PULSE 77; RESP 18; TEMP 36.2; O2SAT 93
[2022-06-22] MEDS: ALBUTEROL SULFATE NEB 2.5 MG/3 ML INH INHALATION (08:07)
[2022-06-22] MEDS: FLUTICASONE/SALMETEROL 115-21 MCG INHALER 1 PUFF 2 PUFF INHALATION (08:08)
[2022-06-22] MEDS: IPRATROPIUM BR 0.02% INH SOLN 0.5 MG/2.5 ML VIAL INHALATION (08:08)
[2022-06-22] MEDS: UMECLIDINIUM BROMIDE 62.5 MCG ELLIPTA 1 PUFF INHALATION (08:08)
[2022-06-22 08:09] VITALS: PULSE 98; RESP 18
[2022-06-22 08:12] VITALS: PULSE 98; RESP 18; O2SAT 92
[2022-06-22 08:20] VITALS: RESP 18
[2022-06-22] MEDS: POTASSIUM CHLORIDE 20 MEQ TABLET.ER PO (08:54)
[2022-06-22] MEDS: PANTOPRAZOLE 40 MG TABLET PO (08:55)
[2022-06-22] MEDS: guaiFENesin 12 HR 600 MG TABCR PO (08:55)
[2022-06-22] MEDS: LOSARTAN POTASSIUM 25 MG TABLET PO (08:55)
[2022-06-22] MEDS: ENOXAPARIN 40 MG/0.4 ML SYRINGE SUB-Q (08:55)
[2022-06-22] MEDS: CITALOPRAM HYDROBROMIDE 20 MG TABLET PO (08:55)
[2022-06-22] MEDS: hydrOXYzine HCL 10 MG TABLET PO (08:55)
[2022-06-22] MEDS: FOLIC ACID 1 MG TABLET PO (08:55)
[2022-06-22] MEDS: THERAPEUTIC MULTIVITAMINS/MINERALS TAB (*BKC) 1 TABLET PO (08:55)
[2022-06-22] MEDS: FUROSEMIDE 80 MG TABLET PO (08:55)
[2022-06-22] MEDS: LORATADINE 10 MG TABLET PO (08:55)
[2022-06-22] MEDS: predniSONE 20 MG TABLET 40 MG PO (08:55)
[2022-06-22] MEDS: FENOFIBRATE 160 MG TABLET PO (08:55)
[2022-06-22 08:56] VITALS: PULSE 90
[2022-06-22] MEDS: PROPRANOLOL HCL 40 MG TABLET PO (08:56)
[2022-06-22] MEDS: THIAMINE HCL 100 MG TABLET PO (08:57)
[2022-06-22] MEDS: VITAMIN B CMPLX/VIT C/FOLIC AC 1 CAPSULE 1 CAP PO (08:57)
--- NOTE | 2022-06-22 11:46 | PM.DS ---
DS: Admitting Diagnosis Discharge Date 06/22/2022 Admitting Diagnosis shortness of breath DS: Discharge Diagnosis Discharge Diagnosis (1) COPD exacerbation: Code(s): J44.1 - Chronic obstructive pulmonary disease with (acute) exacerbation Status: Acute (2) Heart failure of unknown type: Code(s): I50.9 - Heart failure, unspecified Status: Acute (3) Hypertension: Code(s): I10 - Essential (primary) hypertension Status: Acute (4) Hyperlipidemia: Code(s): E78.5 - Hyperlipidemia, unspecified Status: Acute (5) Tobacco abuse: Code(s): Z72.0 - Tobacco use Status: Acute (6) Lower extremity edema: Code(s): R60.0 - Localized edema Status: Acute DS: Summary Hospital Course Hospital Course: #Shortness of breath for past few weeks negative for COVID and influenza chest x-ray with emphysema and mild atelectasis at lung bases treated as COPD exacerbation. Received Solu-Medrol in the ER. Switched to prednisone. Will taper at discharge. Follow-up with PCP #Acute? cOPD exacerbation Solu Medrol given in the ER prednisone.? Continue bronchodilators on oral prednisone will slowly taper #Possible CHF goes exacerbation with lower extremity swelling. We resumed his home Lasix. Sounds like he is not compliant with medication. His swelling resolved during the hospital stay. Will continue Lasix at discharge and at follow-up with his sql ssrs ssis developer as outpatient basis. He sees sql ssrs ssis developer at [facility]. chest x-ray with emphysema mild atelectasis at lung bases.? Leg swelling improving.? BNP 907 #Lower extremity edema venous duplex negative continue Lasix as ordered #Hypertension #Hyperlipidemia #COPD #Current tobacco abuse #History of DVT #DVT prophylaxis Lovenox Time Spent with Patient Time attestation: Total time spent providing and/or coordinating discharge services: Exam Narrative: General: Chronically ill-appearing male sitting at the side of the bed in no acute distress. Off oxygen now HEENT: PERRL, EOMI. Sclera anicteric. Moist mucous membranes. Neck: Supple. No JVD or lymphadenopathy. Respiratory: He does not appear in respiratory distress and is speaking in full sentences. Lung sounds are diminished throughout No wheezes Cardiovascular: Regular rate and rhythm with S1-S2. Gastrointestinal: Abdomen is soft, nontender, and nondistended with positive bowel sounds. Skin: Warm and dry. Skin changes of the lower legs bilaterally. Extremities: No cyanosis or clubbing. 1+ pitting edema to the knees improving. No palpable knots or cords Neurological: Alert. Cranial nerves 2-12 are grossly intact. No gross focal deficits to casual conversation. Psychiatric: Cooperative. Appropriate mood. Odd affect. DS: Data Imaging Radiologist's impression: ITS Impressions Chest X-Ray 06/18/22 17:25 IMPRESSION: 1. Emphysema. 2. Mild atelectasis at the lung bases. Venous Doppler Study 06/19/22 10:06 IMPRESSION: No evidence of deep venous thrombosis of the lower extremities Discharge Plan Discharge Attending physician on discharge: Eusebio Hammond Discharging Clinician: Eusebio Hammond Anticipated Discharge Date/Time: 06/22/22 11:41 Patient Disposition: Home, Self-Care Activity: as tolerated Diet: heart healthy Discharge Instructions: follow up with your sql ssrs ssis developer in 1 week. call for appointment Patient Instructions: Antibiotic Form, How to Stop Smoking (ED) Stand Alone Forms: General Discharge Information Follow-up/Referrals: Jayashree,Bhupinder Boggs Jr., MD [Primary Care Provider] - 1 Week Discharge Medications: New prednisone 10 mg tablet 10 mg PO DIRECTED Qty: 18 0RF Rx Instructions: take 3 tabs daily x 3 days then 2 tab daily x 3 days then 1 tab daily x 3 days then stop Continued albuterol sulfate [ProAir HFA] 90 mcg/actuation HFA aerosol inhaler 2 puff IN
== END 2022-06-22 13:34 | disposition home or self-care (01) ==
LOC: ANHED 19:07 → ANH3MED 06-19 05:02
PROVIDERS: Emergency Medicine; Physician Assistant; Admitting Provider Student in an Organized Health Care Education/Training Program; Emergency Provider Family Medicine; PCP Hospitalist; Visit Provider Internal Medicine
DX: J44.1 Chronic obstructive pulmonary disease with (acute) exacerbation (principal); I11.0 Hypertensive heart disease with heart failure; I50.9 Heart failure, unspecified; E78.5 Hyperlipidemia, unspecified; R60.0 Localized edema; J18.9 Pneumonia, unspecified organism; R51.9 Headache, unspecified; R94.31 Abnormal electrocardiogram [ECG] [EKG]; Z20.822 Contact with and (suspected) exposure to COVID-19; F17.210 Nicotine dependence, cigarettes, uncomplicated; Z86.718 Personal history of other venous thrombosis and embolism; Z87.09 Personal history of other diseases of the respiratory system; Z79.51 Long term (current) use of inhaled steroids; Z79.52 Long term (current) use of systemic steroids; Z79.899 Other long term (current) drug therapy; Z82.49 Family history of ischemic heart disease and other diseases of the circulatory system
CPT/HCPCS: 36415; 71046; 80048; 80053; 83735; 83880; 84443; 85025; 85027; 87636; 93005; 93970; 94640; 96365; 96372; 96375; 99285; A9270; G0378; J1650; J2930; J3475; J7512

== ENCOUNTER 2022-07-14 12:41 | Inpatient (IN) | payer MEDICARE, MEDICAID, SELFPAY ==
[2022-07-14] VITALS (16 sets, daily range): BP systolic 108–153; BP diastolic 66–132; PULSE 91–131; RESP 18–32; TEMP 36.1–37.4; O2SAT 90–100
--- NOTE | ~2022-07-14 | XR_ITS ---
EXAMINATION: XR chest 2V Exam Date/Time: 07/14/2022 14:50 CDT HISTORY: sob, wheezing, weakness x 3 days Comparison: 06/18/2022, 07/11/2019; [facility]PA 07/11/2019. RESULT: Lines, tubes, and devices: None. Lungs and pleura: Emphysematous change. Mild scattered reticulonodular opacities. Cardiomediastinal silhouette: Stable. Other: No acute osseous or upper abdominal finding. Degenerative changes in the spine. IMPRESSION: Respiratory bronchiolitis and emphysema. Reviewed, dictated and finalized at location [facility].
--- NOTE | ~2022-07-14 | XR_ITS ---
XR chest 1V portable DATE: 07/17/2022 15:21 INDICATION: Shortness of breath. History of COPD, heart failure, hypertension TECHNIQUE: 07/12/2021 portable AP chest at 1516 hours COMPARISON: 07/16/2019 portable AP chest at 1021 hours FINDINGS: Scattered bilateral infiltrates and/atelectasis is suggested in the mid and lower lungs, pa rticularly the lung bases. Heart size appears normal. Aortic arch calcification. Pulmonary vascularity appears mildly prominent ascites which may indicate mild pulmonary venous hypertension. No pleural effusion or pneumothorax is evident. Degenerative spurring of the thoracic and lumbar spine. Diffuse osteopenia. IMPRESSION: Mild patchy bilateral pulmonary infiltrates, greatest at the lung bases Borderline pulmonary vascular congestion Reviewed, dictated and finalized at location [facility]. IMPRESSION: Mild patchy bilateral pulmonary infiltrates, greatest at the lung b ases Borderline pulmonary vascular congestion
--- NOTE | ~2022-07-14 | CT_ITS ---
CT Scan of the Chest without Contrast: Clinical Indication: Shortness of breath Technique: Contiguous sections were acquired throughout the chest without intravenous contrast. Dose reduction technique was used on this scan by utilizing automated exposure control and iterative recon struction technique. The dose-length product (DLP) was 459.78 mGy-cm. COMPARISON: 07/11/2019 Findings: There is no evidence of any significant mediastinal, hilar or axillary lymphadenopathy. There are ath erosclerotic calcifications of the aorta. There is no evidence of pleural or pericardial effusion. There is mild emphysema. There is minimal bibasilar atelectatic change. No suspicious pulmonary nodul e. Images through the upper abdomen reveal no abnormalities. There are fracture deformities of the right third, fourth, fifth, sixth, and seventh ribs, subacute to chronic in appearance. There are similar- appearing fracture deformities at the anterior left third, fourth, and fifth ribs. Impression: Mild emphysema. Subacute to chronic bilateral rib fracture deformities, as above. Reviewed, dictated and finalized at [facility]. Impression: Mild emphysema. Subacute to chronic bilateral rib fracture deformities, as above.
--- NOTE | ~2022-07-14 | XR_ITS ---
Portable chest x-ray Comparison: 07/14/2022 Clinical History: Shortness of breath Findings: Mild diffuse interstitial prominence is present in the lungs. No consolidation or pleural effusion. Cardiomediastinal silhouette is stable. Bones and soft tissues are unremarkable. Impression: Mild diffuse interstitial prominence. Correlate for COPD, other chronic interstitial disease, or poss ibly interstitial pulmonary edema. Reviewed, dictated and finalized at [facility]. Impression: Mild diffuse interstitial prominence. Correlate for COPD, other chronic interst itial disease, or possibly interstitial pulmonary edema.
--- NOTE | 2022-07-14 13:45 | ECG_ITS ---
Measurements Intervals [place] Rate: 87 P: 37 MT: 160 QRS: 3 QRSD: 106 T: 46 QT: 355 QTc: 428 Interpretive Statements SINUS RHYTHM CANNOT RULE OUT SEPTAL INFARCT, AGE INDETERMINATE ABNORMAL ECG COMPARED TO ECG 06/18/2022 16:00:06 SINUS RHYTHM NOW PRESENT Electronically Signed On 07-14-2022 20:53:02 CDT by uJnior Adkins D.O.
[2022-07-14 14:57] LABS: Basophils Absolute Auto 0.1 K/mm3 (0.0-0.1); Basophils Percent Auto 0.7 % (0.2-1.2); Eosinophils Absolute Auto 0.1 K/mm3 (0-0.3); Eosinophils Percent Auto 0.8 % (0-4.4); Hematocrit 37.9 % (42.0-52.0); Hemoglobin 13.1 g/dL (14.0-18.0); Immature Granulocyte Absolute 0.03 K/mm3 (0.00-0.031); Immature Granulocyte Percent A 0.3 % (0-0.5); Lymphocytes Absolute Auto 2.46 K/mm3 (0.9-3.2); Lymphocytes Percent Auto 20.9 % (18.3-44.2); Mean Corpuscular HGB Conc 34.6 g/dl (32-36); Mean Corpuscular Hemoglobin 33.8 pg (26-34); Mean Corpuscular Volume 97.7 fl (80-100); Mean Platelet Volume 8.7 fl (7.4-10.4); Monocytes Absolute Auto 0.9 K/mm3 (0.1-0.6); Monocytes Percent Auto 7.2 % (2.6-8.5); Neutrophils Absolute Auto 8.3 K/mm3 (1.3-6.7); Neutrophils Percent Auto 70.1 % (45.5-73.1); Platelet Count Result 406 k/mm3 (150-375); Red Blood Count 3.88 M/mm3 (4.6-6.20); Red Cell Distribution Width 13.8 % (11.5-14.5); White Blood Count 11.8 K/mm3 (4.5-10.0)
[2022-07-14 15:03] LABS: Alanine Aminotransferase 32 U/L (6-50); Albumin Level 4.3 g/dL (3.5-5.1); Alkaline Phosphatase 113 U/L (38-126); Anion Gap 6 mmol/L (8-16); Aspartate Amino Transferase 47 U/L (17-59); Bilirubin,Total 1.2 mg/dL (0.2-1.3); Blood Urea Nitrogen 13 mg/dL (9-20); Calcium 9.1 mg/dL (8.4-10.2); Carbon Dioxide 31 mmol/L (22-30); Chloride 92 mmol/L (98-107); Estimated CRCL calculation 67 ml/min; Estimated Glomerular Filt Rate > 60; Glucose 96 mg/dL (65-110); Potassium 4.8 mmol/L (3.4-5.0); Sodium 129 mmol/L (137-145)
[2022-07-14 15:04] LABS: Prothrombin Time 12.2 Seconds (11.1-14.7)
[2022-07-14 15:05] LABS: Partial Thromboplastin Time 26.9 SECONDS (22.3-36.8)
[2022-07-14 15:14] LABS: NT Pro B Type Natriuretic Pept 1490 pg/mL (19.9-100); Troponin I < 0.012 ng/mL (0.000-0.034)
[2022-07-14] MEDS: methylPREDNISolone SOD SUCC 125 MG VIAL IV PUSH (17:21)
[2022-07-14] MEDS: ALBUTEROL SULFATE NEB 2.5 MG/3 ML INH 15 MG INHALATION (17:28)
[2022-07-14] MEDS: IPRATROPIUM BR 0.02% INH SOLN 0.5 MG/2.5 ML VIAL 1.5 MG INHALATION (17:29)
--- NOTE | 2022-07-14 18:26 | PC.NURSE ---
Patient states he has been getting increasingly weak since having covid years ago. patient states he has been unable to walk long distance for some time and gets short of breath easily.
--- NOTE | 2022-07-14 19:13 | PC.NURSE ---
Patient placed on 4L NC to get patient O2 sat to 95%. patient states oxygen is helping with the shortness of breath. provider made aware.
--- NOTE | 2022-07-14 19:40 | ED.GENADULT ---
HPI - General Adult General Chief complaint: Weakness Stated complaint: weakness x several years - difficulty walking Time Seen by Provider: 07/14/22 16:24 History of Present Illness HPI narrative: Patient is a 61-year-old male who presents the ER with progressive weakness. Reports its been an ongoing issue but more pronounced over the last week especially over the last day. He reports he has had cough over the last 2 to 3 months but it is worsened over the last week as well. Associated with shortness of breath. No fevers or chills or sweats. No chest pain or chest pressure. Patient does have history of emphysema. No fall or injury. Patient reports chest pain related to coughing. Related Data Home Medications Medication Instructions Recorded Confirmed budesonide-formoterol HFA 160 2 puff inhalation BID 06/18/22 06/18/22 mcg-4.5 mcg/actuation aerosol inhaler (Symbicort) citalopram 20 mg tablet 20 mg PO DAILY 06/18/22 06/18/22 cyclobenzaprine 10 mg tablet 10 mg PRN 06/18/22 06/18/22 famotidine 40 mg tablet 10 mg PO HS 06/18/22 06/18/22 fenofibrate micronized 200 mg 200 mg PO DAILY 06/18/22 06/18/22 capsule fexofenadine 180 mg tablet 180 mg PO DAILY 06/18/22 06/18/22 fluticasone 250 mcg-salmeterol 50 1 inh inhalation BID 06/18/22 06/18/22 mcg/dose blistr powdr for inhalation (Advair Diskus) folic acid 1 mg tablet 1 mg PO DAILY 06/18/22 06/18/22 furosemide 80 mg tablet 80 mg PO DAILY 06/18/22 06/18/22 guaifenesin 600 mg tablet, 600 mg PO BID 06/18/22 06/18/22 extended release 12 hr (Mucus Relief ER) hydroxyzine HCl 10 mg tablet 10 mg PO TID 06/18/22 06/18/22 ipratropium bromide 17 2 puff inhalation 4-6XD 06/18/22 06/18/22 mcg/actuation HFA aerosol inhaler (Atrovent HFA) losartan 50 mg tablet 25 mg PO BID 06/18/22 06/18/22 multivitamin-iron 9 mg-folic acid 1 tablet PO DAILY 06/18/22 06/18/22 400 mcg-calcium and minerals tablet (Thera-M) pantoprazole 40 mg tablet,delayed 40 mg PO DAILY 06/18/22 06/18/22 release potassium chloride 20 mEq 20 meq PO DAILY 06/18/22 06/18/22 tablet,extended release propranolol 20 mg tablet 20 mg PO DAILY 06/18/22 06/18/22 simvastatin 40 mg tablet 40 mg PO HS 06/18/22 06/18/22 thiamine HCl (vitamin B1) 100 mg 100 mg PO DAILY 06/18/22 06/18/22 tablet tiotropium bromide 2.5 2 inh inhalation DAILY 06/18/22 06/18/22 mcg/actuation mist for inhalation (Spiriva Respimat) trazodone 100 mg tablet 100 mg PO HS 06/18/22 06/18/22 vitamin B comp no.3-folic acid 1 1 tablet PO DAILY 06/18/22 06/18/22 mg-vit C 60 mg-biotin 300 mcg tablet (Nirali-May Rx) Allergies Allergy/AdvReac Type Severity Reaction Status Date / Time No Known Allergies Allergy Mild Verified 07/14/22 12:41 Review of Systems Review of Systems: All systems reviewed & are unremarkable except as noted in HPI and below Constitutional: Constitutional: Denies chills, Reports fatigue and Denies fever(s) ENT: Denies nasal congestion and Denies sore throat Cardiovascular: Cardiovascular: Denies chest pain, Denies rapid heart rate and Denies radiating jaw, neck or arm pain Respiratory: Respiratory: Reports cough, Reports dyspnea and Denies wheezing Gastrointestinal: Gastrointestinal: Denies abdominal pain, Denies nausea and Denies vomiting [facility] Past Medical History Medical History (Updated 07/14/22 @ 21:34 by Ant Dexter MD) Chronic obstructive pulmonary disease Deep venous thrombosis Heart failure of unknown type Hyperlipidemia Hypertension Tobacco abuse Surgical History Surgical History History of dental surgery Family History Family History Other Diabetes mellitus Family history of arthritis Family history of mental disorder Family history of seizure disorder Hypertension Social History Social History (Updated 06/18/22 @ 23:33 by Gisela Art
--- NOTE | 2022-07-14 20:23 | PM.IMHP ---
H&P: HPI History of Present Illness Date/Time: 07/14/22 20:23 Chief Complaint: Shortness of breath Narrative: This is a 61-year-old male with past medical history significant for alcohol dependence, patient drinks a pt of vodka or more a week patient just recently quit smoking 2 weeks ago, patient presents to the emergency room due to worsening shortness of breath, generalized weakness, recurrent falls, cough productive of sputum which is vizcarra in color, thick, copious, states that he has not been for feeling well for the last 2 years ever since he had COVID he had to quit his job because was not able to perform it has not really recover from it, denies any fevers, rigors, chills, has had nausea and vomiting unable to keep anything down. In emergency room patient was found to have a low oxygen saturation requiring supplemental oxygen by nasal cannula was placed on 4 L. preliminary workup was significant for brain atretic peptide 1340 chemistry panel was significant for sodium 129, bicarb 30, chloride 94 a chest x-ray was reported as: IMPRESSION: Respiratory bronchiolitis and emphysema. Patient is been admitted for further evaluation management and treatment. Review of Systems Review of Systems: Patient is laying in bed in semi upright position Constitutional: Constitutional: Denies chills, Reports fatigue, Denies fever(s), Reports lethargy, Denies malaise, Denies night sweats, Reports poor appetite, Reports weakness and Reports weight loss Eyes: Eyes: Denies change in vision ENT: Denies dysphagia and Denies odynophagia Cardiovascular: Cardiovascular: Denies chest pain, Denies syncope, Denies edema, Denies irregular heart rhythm, Denies lightheadedness, Denies radiating jaw, neck or arm pain, Denies palpitations and Reports dyspnea Respiratory: Respiratory: Reports change in phlegm color, Reports chest congestion, Reports cough, Reports excessive phlegm production and Reports dyspnea Gastrointestinal: Gastrointestinal: Denies abdominal pain, Denies dyspepsia, Denies heartburn, Denies diarrhea, Reports nausea and Reports vomiting Genitourinary: Genitourinary: Reports no additional male genitourinary complaints and Reports as per HPI Musculoskeletal: Musculoskeletal: Denies back pain and Reports muscle weakness (Recurrent falls, proximal weakness) Integumentary/Breasts: Skin/Breast: Denies rash Neurologic: Denies vertigo, Denies dizziness, Denies focal weakness and Denies Sensory deficit (Neuro) Psychiatric: Psychiatric: Reports no additional psychiatric complaints and Reports as per HPI Endocrine: Endocrine: Denies cold intolerance, Denies flushing, Denies heat intolerance, Denies polyphagia, Denies polydipsia and Denies palpitations Hematologic/Lymphatic: Hematologic/Lymphatic: Reports no additional hematologic/lymphatic complaints and Reports as per HPI Allergic/Immunologic: Allergic/Immunologic: Reports no additional allergic/immunologic complaints and Reports as per HPI PMFSH Past Medical History Medical History (Updated 07/15/22 @ 01:09 by Kelly Amaro MD) Chronic obstructive pulmonary disease Deep venous thrombosis Heart failure of unknown type Hyperlipidemia Hypertension Tobacco abuse Surgical History Surgical History History of dental surgery Family History Family History Other Diabetes mellitus Family history of arthritis Family history of mental disorder Family history of seizure disorder Hypertension Social History Social History (Updated 06/18/22 @ 23:33 by Gisela Todd PA-C) Social History: Surrogate medical decision maker: None. Code status: Full code. Smoking packs per day: 1 Smoking cigarettes per day: 20.0 Smoking status: Former smoker Tobacco type: cigarettes Smoking end date: 07/09/22 Alcohol intake: current Alcohol use details: Social hicks
--- NOTE | 2022-07-14 20:51 | PC.NURSE ---
Spoke with [facility] med surg and RN states she has not looked over chart yet.
[2022-07-15] VITALS (14 sets, daily range): BP systolic 111–117; BP diastolic 70–89; PULSE 97–116; RESP 16–20; TEMP 36.3–37.1; O2SAT 94–100
--- NOTE | 2022-07-15 | ECHO_ITS ---
Patient Info Name: Rafal Childers Age: 61 years : 1960 Gender: Male Ht: 68 in Wt: 194 lbs BSA: 2.08 m2 HR: 107 bpm BP: 112 / 71 mmHg Technical Quality: Fair Exam Date: 07/15/2022 11:43 AM Exam Location: [facility] Pulmonary Exam Room: [facility] Patient Status: Inpatient Admit Date: 07/14/2022 Staff Ordering Physician: Kelly Amaro MD [place] Team Leader: Kaitlynn Burgos RDCS Attending Provider: Kelly Amaro MD Referring Physician: Prem CHOWDHURY; Exam Type: CA echo doppler color flow Study Info Indications - elevated BNP Complete two-dimensional, color flow and Doppler transthoracic echocardiogram is performed. Summary 1. Complete two-dimensional, color flow and Doppler transthoracic echocardiogram is performed. 2. Left ventricular chamber dimension is normal. 3. Left ventricular systolic function is normal, estimated at 60-65%. 4. The left ventricular diastolic function is grade I diastolic dysfunction. 5. E/e' 9 is minimally elevated. 6. Left atrial chamber dimension is mildly enlarged. 7. There is mild aortic valve sclerosis. 8. There is trace aortic valve regurgitation. 9. There is trace tricuspid valve regurgitation. 10. No pulmonary hypertension, estimated pulmonary arterial systolic pressure is 31 mmHg. Left Ventricle E/e' 9 is minimally elevated. Left ventricular chamber dimension is normal. Left ventricular systolic function is normal, estimated at 60-65%. The left ventricular diastolic function is grade I diastolic dysfunction. Right Ventricle Right ventricular chamber dimension is normal. Right ventricular systolic function is normal. Left Atria Left atrial chamber dimension is mildly enlarged. Right Atria Right atrial chamber dimension is normal. Aortic Valve The aortic valve is trileaflet. There is mild aortic valve sclerosis. There is no aortic valve stenosis. There is trace aortic valve regurgitation. Pulmonic Valve There is no pulmonic regurgitation. Mitral Valve There is no mitral valve stenosis. There is no mitral valve regurgitation. Tricuspid Valve There is trace tricuspid valve regurgitation. No pulmonary hypertension, estimated pulmonary arterial systolic pressure is 31 mmHg. Pericardium/Pleural There is no pericardial effusion. Inferior Vena Cava Normal inferior vena cava with >50% collapse upon inspiration consistent with normal right atrial pressure, 5 mmHg. Aorta The aortic root size at the sinus of Valsalva is normal. Left Ventricular Outflow Tract Name Value Normal LVOT 2D LVOT Diameter 2.1 cm LVOT Doppler LVOT Peak Gradient 8 mmHg LVOT Mean Gradient 5 mmHg LVOT VTI 23 cm LVOT VTI/AV VTI Ratio 0.8 LVOT Stroke Volume 81 ml LVOT CO 23.4 l/min LVOT CI 11.2 l/min/m2 Pulmonic Valve Name Value Nor
[2022-07-15] MEDS: chlordiazePOXIDE (*CRX) 25 MG CAPSULE 50 MG PO ×3 (00:26→11:26)
[2022-07-15] MEDS: LOSARTAN POTASSIUM 25 MG TABLET PO ×3 (00:26→20:12)
[2022-07-15] MEDS: FAMOTIDINE 10 MG TABLET PO ×2 (00:26→20:12)
[2022-07-15] MEDS: methylPREDNISolone SOD SUCC 125 MG VIAL 60 MG IV PUSH ×4 (00:26→18:10)
[2022-07-15] MEDS: SIMVASTATIN 20 MG TABLET 40 MG PO ×2 (00:26→20:12)
[2022-07-15] MEDS: traZODone HCL 50 MG TABLET 100 MG PO ×2 (00:26→20:12)
[2022-07-15 02:44] LABS: Glucose Point of Care 225 mg/dl (65-105)
[2022-07-15] MEDS: IPRATROPIUM BR 0.02% INH SOLN 0.5 MG/2.5 ML VIAL INHALATION ×4 (03:24→21:00)
[2022-07-15] MEDS: ALBUTEROL SULFATE NEB 2.5 MG/3 ML INH INHALATION ×4 (03:24→21:00)
[2022-07-15 06:16] LABS: Glucose Point of Care 190 mg/dl (65-105)
[2022-07-15] MEDS: FLUTICASONE/SALMETEROL 115-21 MCG INHALER 1 PUFF 2 PUFF INHALATION (07:00)
[2022-07-15] MEDS: UMECLIDINIUM BROMIDE 62.5 MCG ELLIPTA 1 PUFF INHALATION (07:00)
[2022-07-15] MEDS: PANTOPRAZOLE 40 MG TABLET PO (08:19)
[2022-07-15] MEDS: THIAMINE HCL 100 MG TABLET PO (08:19)
[2022-07-15] MEDS: THIAMINE HCL 200 MG/2 ML VIAL 100 MG IV PUSH (08:19)
[2022-07-15] MEDS: ENOXAPARIN 40 MG/0.4 ML SYRINGE SUB-Q (08:19)
[2022-07-15] MEDS: FUROSEMIDE INJ 40 MG/4 ML VIAL IV PUSH ×2 (08:19→18:09)
[2022-07-15] MEDS: THERAPEUTIC MULTIVITAMINS/MINERALS TAB (*BKC) 1 TABLET PO (08:19)
--- NOTE | 2022-07-15 10:05 | PM.IMPN ---
Progress Note: A&P Assessment and Plan (1) COPD exacerbation: Code(s): J44.1 - Chronic obstructive pulmonary disease with (acute) exacerbation Status: Acute Assessment and Plan: Do not suspect exacerbation, continue levaquin, solumedrol, inhalers and nebs, monitor (2) Hypoxia: Code(s): R09.02 - Hypoxemia Status: Acute Assessment and Plan: Requiring supplemental oxygen by nasal cannula Saturating at 96% (3) Hypertension: Code(s): I10 - Essential (primary) hypertension Status: Acute Assessment and Plan: Continue home meds Continue to monitor (4) Tobacco abuse: Code(s): Z72.0 - Tobacco use Status: Acute Assessment and Plan: Encouraged cessation (5) Alcohol dependence: Code(s): F10.20 - Alcohol dependence, uncomplicated Status: Acute Assessment and Plan: CIWA protocol as needed, decrease librium (6) Acute congestive heart failure: Code(s): I50.9 - Heart failure, unspecified Status: Acute Assessment and Plan: cont IV diuresis, check echo, monitor Is, Os Plan DVT prophylaxis with Lovenox GI prophylaxis with PPI Code status full code Subjective Date/time seen: 07/15/22 10:05 Interval history: 61-year-old male with past medical history significant for alcoholism is presenting with shortness of breath, weakness, frequent falls and a productive cough, found to be hypoxic in the ER, concerning for COPD versus heart failure. No overnight events noted. No chest pain or shortness of breath. No nausea, vomiting or diarrhea. No fevers or chills. 96% on 4 L nasal cannula. On room air at home. Review of Systems Review of Systems: 12 point review of systems was assessed and was negative except as noted in the HPI Exam Narrative: General: No acute distress, alert and oriented per baseline HEENT: Atraumatic, normocephalic, mucous membranes moist CV: Regular rate and rhythm, S1, S2 Lungs: Diminished at bases, bibasilar crackles noted, no wheezes Abdomen: Soft, nontender, nondistended Extremities: Normal to inspection, non pitting lymphedema noted Skin: No rashes noted, no lesions or wounds seen Psych: Euthymic, normal affect Objective Data Vital Signs Vital Signs: Vital Signs - 24 hr 07/14/22 13:00 07/14/22 17:31 07/14/22 16:27 Temperature 99.3 F Pulse Rate 112 H 110 H 104 H Respiratory Rate 20 18 27 H Blood Pressure 134/88 146/83 H Pulse Oximetry 96 96 Oxygen Delivery Room Air Oxygen Flow Rate 07/14/22 16:31 07/14/22 16:46 07/14/22 17:31 Temperature Pulse Rate 91 104 H 111 H Respiratory Rate 20 19 21 H Blood Pressure 141/83 H 142/106 H 153/132 H Pulse Oximetry 96 95 93 Oxygen Delivery Oxygen Flow Rate 07/14/22 17:47 07/14/22 18:01 07/14/22 18:31 Temperature Pulse Rate 103 H 110 H 112 H Respiratory Rate 24 H 23 H 26 H Blood Pressure 108/66 140/91 H 137/75 Pulse Oximetry 100 100 100 Oxygen Delivery Oxygen Flow Rate 07/14/22 18:53 07/14/22 18:32 07/14/22 18:52 Temperature Pulse Rate 125 H 131 H 119 H Respiratory Rate 22 H 23 H 26 H Blood Pressure Pulse Oximetry 100 100 Oxygen Delivery Oxygen Flow Rate 07/14/22 19:00 07/14/22 19:01 07/14/22 20:50 Temperature Pulse Rate 129 H 124 H 120 H Respiratory Rate 32 H 29 H 23 H Blood Pressure 135/80 125/80 Pulse Oximetry 92 90 96 Oxygen Delivery Oxygen Flow Rate 07/14/22 22:10 07/14/22 21:20 07/15/22 03:44 Temperature 97.0 F L Pulse Rate 112 H 108 H Respiratory Rate 18 20 Blood Pressure 137/83 Pulse Oximetry 96 96 Oxygen Delivery Nasal Cannula Oxygen Flow Rate 4 07/15/22 03:50 07/15/22 03:51 07/15/22 05:23 Temperature 98.7 F Pulse Rate 101 H 97 Respiratory Rate 20 18 Blood Pressure 112/71 Pulse Oximetry 94 100 Oxygen Delivery Nasal Cannula Oxygen Flow Rate 4 07/15/22 07:00 07/15/22 07:00 07/15/22 0
[2022-07-15 10:26] LABS: Basophils Percent Auto 0.1 % (0.2-1.2); Hematocrit 34.3 % (42.0-52.0); Hemoglobin 11.7 g/dL (14.0-18.0); Immature Granulocyte Absolute 0.06 K/mm3 (0.00-0.031); Immature Granulocyte Percent A 0.6 % (0-0.5); Lymphocytes Absolute Auto 0.52 K/mm3 (0.9-3.2); Lymphocytes Percent Auto 5.2 % (18.3-44.2); Mean Corpuscular HGB Conc 34.1 g/dl (32-36); Mean Corpuscular Hemoglobin 33.2 pg (26-34); Mean Corpuscular Volume 97.4 fl (80-100); Mean Platelet Volume 8.9 fl (7.4-10.4); Monocytes Absolute Auto 0.1 K/mm3 (0.1-0.6); Monocytes Percent Auto 0.6 % (2.6-8.5); Neutrophils Absolute Auto 9.4 K/mm3 (1.3-6.7); Neutrophils Percent Auto 93.5 % (45.5-73.1); Platelet Count Result 385 k/mm3 (150-375); Red Blood Count 3.52 M/mm3 (4.6-6.20); Red Cell Distribution Width 13.8 % (11.5-14.5)
[2022-07-15 10:33] LABS: Alanine Aminotransferase 27 U/L (6-50); Albumin Level 3.9 g/dL (3.5-5.1); Alkaline Phosphatase 92 U/L (38-126); Anion Gap 5 mmol/L (8-16); Aspartate Amino Transferase 32 U/L (17-59); Bilirubin,Total 0.6 mg/dL (0.2-1.3); Blood Urea Nitrogen 19 mg/dL (9-20); Calcium 8.5 mg/dL (8.4-10.2); Carbon Dioxide 29 mmol/L (22-30); Chloride 95 mmol/L (98-107); Estimated CRCL calculation 57 ml/min; Estimated Glomerular Filt Rate > 60; Glucose 287 mg/dL (65-110); Sodium 129 mmol/L (137-145)
--- NOTE | 2022-07-15 11:18 | PCSTNOTE ---
Patient seen for bedside swallowing evaluation today. Choking episode documented at breakfast this morning. Per patient, it is difficult to coordinate respiration with eating. Patient said a small piece of an [place] muffin caused him to choke this morning and this is verified by nurse. Oral peripheral examination within normal limits. Patient sitting upright in bad with head of bed elevated. Trials of thin liquid by straw within normal limits. Pureed food by spoon within normal limits. Patient exhibited delayed coughing after swallowing pureed food, but due to chronic cough from severe respiratory problems this might or might not be an indication of aspiration. Utilizing chin tuck there was no delayed cough. No other signs of aspiration observed. Please note that silent aspiration cannot be ruled out at bedside and can only be evaluated with a modified barium swallow study. Recommendation: soft and bite sized diet level 6 (no bread or buns) and regular liquids (thin liquids). No further speech therapy is recommended. Thank you for the referral of this patient.
[2022-07-15 13:23] LABS: Glucose Point of Care 221 mg/dl (65-105)
[2022-07-15 17:16] LABS: Glucose Point of Care 159 mg/dl (65-105)
[2022-07-15] MEDS: chlordiazePOXIDE (*CRX) 25 MG CAPSULE PO (18:09)
[2022-07-15 18:11] LABS: Hemoglobin A1C 4.8 % (<5.7)
[2022-07-15] MEDS: BUDESONIDE RESPULE NEB 0.5 MG/2 ML AMP INHALATION (21:06)
[2022-07-15 21:45] LABS: Glucose Point of Care 169 mg/dl (65-105)
[2022-07-16] VITALS (13 sets, daily range): BP systolic 103–137; BP diastolic 71–96; PULSE 96–126; RESP 14–24; TEMP 36.4–37; O2SAT 90–97
[2022-07-16] MEDS: methylPREDNISolone SOD SUCC 125 MG VIAL 60 MG IV PUSH ×4 (00:03→17:48)
[2022-07-16] MEDS: chlordiazePOXIDE (*CRX) 25 MG CAPSULE PO ×3 (00:03→12:25)
[2022-07-16] MEDS: ALBUTEROL SULFATE NEB 2.5 MG/3 ML INH INHALATION ×4 (02:25→20:12)
[2022-07-16] MEDS: IPRATROPIUM BR 0.02% INH SOLN 0.5 MG/2.5 ML VIAL INHALATION ×4 (02:25→20:12)
[2022-07-16 07:41] LABS: Glucose Point of Care 177 mg/dl (65-105)
[2022-07-16 07:52] LABS: Basophils Percent Auto 0.1 % (0.2-1.2); Hematocrit 33.6 % (42.0-52.0); Immature Granulocyte Absolute 0.15 K/mm3 (0.00-0.031); Immature Granulocyte Percent A 0.8 % (0-0.5); Lymphocytes Absolute Auto 0.82 K/mm3 (0.9-3.2); Lymphocytes Percent Auto 4.2 % (18.3-44.2); Mean Corpuscular HGB Conc 32.7 g/dl (32-36); Mean Corpuscular Hemoglobin 33.6 pg (26-34); Mean Corpuscular Volume 102.8 fl (80-100); Mean Platelet Volume 8.9 fl (7.4-10.4); Monocytes Absolute Auto 0.4 K/mm3 (0.1-0.6); Monocytes Percent Auto 2.2 % (2.6-8.5); Neutrophils Percent Auto 92.7 % (45.5-73.1); Platelet Count Result 401 k/mm3 (150-375); Red Blood Count 3.27 M/mm3 (4.6-6.20); Red Cell Distribution Width 14.1 % (11.5-14.5); White Blood Count 19.5 K/mm3 (4.5-10.0)
[2022-07-16] MEDS: BUDESONIDE RESPULE NEB 0.5 MG/2 ML AMP INHALATION ×2 (07:54→20:12)
[2022-07-16 08:05] LABS: Alanine Aminotransferase 22 U/L (6-50); Albumin Level 3.5 g/dL (3.5-5.1); Alkaline Phosphatase 67 U/L (38-126); Anion Gap 6 mmol/L (8-16); Aspartate Amino Transferase 22 U/L (17-59); Bilirubin,Total 0.4 mg/dL (0.2-1.3); Blood Urea Nitrogen 29 mg/dL (9-20); Calcium 8.4 mg/dL (8.4-10.2); Carbon Dioxide 30 mmol/L (22-30); Chloride 96 mmol/L (98-107); Estimated CRCL calculation 49 ml/min; Estimated Glomerular Filt Rate 52; Glucose 146 mg/dL (65-110); Potassium 3.8 mmol/L (3.4-5.0); Sodium 132 mmol/L (137-145)
[2022-07-16] MEDS: THERAPEUTIC MULTIVITAMINS/MINERALS TAB (*BKC) 1 TABLET PO (09:34)
[2022-07-16] MEDS: FUROSEMIDE INJ 40 MG/4 ML VIAL IV PUSH (09:34)
[2022-07-16] MEDS: THIAMINE HCL 100 MG TABLET PO (09:34)
[2022-07-16] MEDS: PANTOPRAZOLE 40 MG TABLET PO (09:34)
[2022-07-16] MEDS: ENOXAPARIN 40 MG/0.4 ML SYRINGE SUB-Q (09:34)
[2022-07-16] MEDS: LOSARTAN POTASSIUM 25 MG TABLET PO ×2 (09:34→20:34)
[2022-07-16 11:57] LABS: Glucose Point of Care 169 mg/dl (65-105)
--- NOTE | 2022-07-16 12:39 | PM.IMPN ---
Progress Note: A&P Assessment and Plan (1) COPD exacerbation: Code(s): J44.1 - Chronic obstructive pulmonary disease with (acute) exacerbation Status: Acute Assessment and Plan: Could be exacerbation, wheezing noted today, continue levaquin, started 07/14, solumedrol, inhalers and nebs, monitor Add pulmozyme, mucinex, tessalon perles, and pulm consult (2) Hypoxia: Code(s): R09.02 - Hypoxemia Status: Acute Assessment and Plan: Requiring supplemental oxygen by nasal cannula, resolving, likely 2/2 COPD + HF (3) Hypertension: Code(s): I10 - Essential (primary) hypertension Status: Acute Assessment and Plan: Continue home meds Continue to monitor BP reviewed 07/16 (4) Tobacco abuse: Code(s): Z72.0 - Tobacco use Status: Acute Assessment and Plan: Encouraged cessation (5) Alcohol dependence: Code(s): F10.20 - Alcohol dependence, uncomplicated Status: Acute Assessment and Plan: CIWA is 0, d/c librium and monitor (6) Acute congestive heart failure: Code(s): I50.9 - Heart failure, unspecified Status: Acute Assessment and Plan: Echo showed an EF of 60-65% with grade 1 diastolic dysfunction, no pulmonary hypertension, mild valvular disease Appears euvolemic, creat + BUN increasing, edema resolved in LE, switch IV lasix to po home dose, monitor response Plan DVT prophylaxis with Lovenox GI prophylaxis with PPI Code status full code Subjective Date/time seen: 07/16/22 12:39 Interval history: 61-year-old male with past medical history significant for alcoholism is presenting with shortness of breath, weakness, frequent falls and a productive cough, found to be hypoxic in the ER, concerning for COPD versus heart failure. No overnight events noted. No chest pain or shortness of breath at rest, some SOB with exertion. No nausea, vomiting or diarrhea. No fevers or chills. He has been up and moving around his room. 93% on 2 L nasal cannula. On room air at home. Review of Systems Review of Systems: 12 point review of systems was assessed and was negative except as noted in the HPI Exam Narrative: General: No acute distress, alert and oriented per baseline HEENT: Atraumatic, normocephalic, mucous membranes moist CV: Regular rate and rhythm, S1, S2 Lungs: Diffuse, scattered wheezes, moderate air entry, Abdomen: Soft, nontender, nondistended Extremities: Normal to inspection, no edema Skin: No rashes noted, no lesions or wounds seen Psych: Euthymic, normal affect Objective Data Vital Signs Vital Signs: Vital Signs - 24 hr 07/15/22 14:38 07/15/22 14:51 07/15/22 14:00 Temperature 97.4 F L Pulse Rate 110 H 115 H 116 H Respiratory Rate 18 18 18 Blood Pressure 111/89 Pulse Oximetry 99 Oxygen Delivery Oxygen Flow Rate Fraction of Inspired Oxygen 07/15/22 21:00 07/15/22 21:04 07/15/22 20:00 Temperature Pulse Rate 107 H 107 H Respiratory Rate 16 16 Blood Pressure Pulse Oximetry 97 94 Oxygen Delivery Nasal Cannula Nasal Cannula Oxygen Flow Rate 2 2 Fraction of Inspired Oxygen 28 07/15/22 21:19 07/15/22 22:00 07/16/22 02:25 Temperature 97.3 F L Pulse Rate 110 H 110 H 96 Respiratory Rate 16 20 16 Blood Pressure 117/70 Pulse Oximetry 94 Oxygen Delivery Oxygen Flow Rate Fraction of Inspired Oxygen 07/16/22 02:33 07/16/22 06:00 07/16/22 07:50 Temperature 97.5 F L Pulse Rate 99 117 H 102 H Respiratory Rate 16 18 24 H Blood Pressure 136/80 Pulse Oximetry 96 Oxygen Delivery Oxygen Flow Rate Fraction of Inspired Oxygen 07/16/22 07:57 07/16/22 08:09 07/16/22 09:25 Temperature Pulse Rate 103 H Respiratory Rate 20 Blood Pressure Pulse Oximetry 96 90 Oxygen Delivery Nasal Cannula Nasal Cannula Oxygen Flow Rate 3 3 Fraction of Inspired Oxygen Intake/Output Intake/Ou
[2022-07-16 17:07] LABS: Glucose Point of Care 171 mg/dl (65-105)
[2022-07-16] MEDS: guaiFENesin 600 MG/DEXTROMETHORPHAN 30 MG SR TAB 12 HR 1 TAB PO (17:50)
[2022-07-16] MEDS: BENZONATATE 100 MG CAPSULE 200 MG PO (17:50)
[2022-07-16] MEDS: DORNASE ALFA INH SOLN 1 MG/ML 2.5 ML AMP 2.5 MG INHALATION (20:12)
[2022-07-16] MEDS: SIMVASTATIN 20 MG TABLET 40 MG PO (20:33)
[2022-07-16] MEDS: FAMOTIDINE 10 MG TABLET PO (20:34)
[2022-07-16] MEDS: traZODone HCL 50 MG TABLET 100 MG PO (20:34)
[2022-07-16 22:35] LABS: Glucose Point of Care 163 mg/dl (65-105)
[2022-07-17] VITALS (14 sets, daily range): BP systolic 114–136; BP diastolic 69–74; PULSE 89–113; RESP 14–20; TEMP 36.6–36.8; O2SAT 92–95
[2022-07-17] MEDS: methylPREDNISolone SOD SUCC 125 MG VIAL 60 MG IV PUSH ×5 (00:43→23:33)
[2022-07-17] MEDS: ALBUTEROL SULFATE NEB 2.5 MG/3 ML INH INHALATION ×4 (02:10→20:25)
[2022-07-17] MEDS: IPRATROPIUM BR 0.02% INH SOLN 0.5 MG/2.5 ML VIAL INHALATION ×4 (02:10→20:25)
[2022-07-17 06:57] LABS: Basophils Percent Auto 0.1 % (0.2-1.2); Hematocrit 34.4 % (42.0-52.0); Hemoglobin 11.2 g/dL (14.0-18.0); Immature Granulocyte Absolute 0.17 K/mm3 (0.00-0.031); Immature Granulocyte Percent A 0.9 % (0-0.5); Lymphocytes Percent Auto 4.3 % (18.3-44.2); Mean Corpuscular HGB Conc 32.6 g/dl (32-36); Mean Corpuscular Hemoglobin 33.9 pg (26-34); Mean Corpuscular Volume 104.2 fl (80-100); Mean Platelet Volume 9.2 fl (7.4-10.4); Monocytes Absolute Auto 0.5 K/mm3 (0.1-0.6); Monocytes Percent Auto 2.5 % (2.6-8.5); Neutrophils Absolute Auto 17.2 K/mm3 (1.3-6.7); Neutrophils Percent Auto 92.2 % (45.5-73.1); Platelet Count Result 432 k/mm3 (150-375); Red Cell Distribution Width 14.3 % (11.5-14.5); White Blood Count 18.7 K/mm3 (4.5-10.0)
[2022-07-17 07:15] LABS: Alanine Aminotransferase 20 U/L (6-50); Albumin Level 3.4 g/dL (3.5-5.1); Alkaline Phosphatase 63 U/L (38-126); Anion Gap 5 mmol/L (8-16); Aspartate Amino Transferase 22 U/L (17-59); Bilirubin,Total 0.3 mg/dL (0.2-1.3); Blood Urea Nitrogen 38 mg/dL (9-20); Calcium 8.2 mg/dL (8.4-10.2); Carbon Dioxide 32 mmol/L (22-30); Chloride 96 mmol/L (98-107); Estimated CRCL calculation 49 ml/min; Estimated Glomerular Filt Rate 52; Glucose 132 mg/dL (65-110); Sodium 133 mmol/L (137-145)
[2022-07-17] MEDS: BUDESONIDE RESPULE NEB 0.5 MG/2 ML AMP INHALATION ×2 (08:26→20:25)
[2022-07-17] MEDS: DORNASE ALFA INH SOLN 1 MG/ML 2.5 ML AMP 2.5 MG INHALATION ×2 (08:26→20:25)
[2022-07-17 08:43] LABS: Glucose Point of Care 131 mg/dl (65-105)
[2022-07-17] MEDS: PANTOPRAZOLE 40 MG TABLET PO (09:18)
[2022-07-17] MEDS: LOSARTAN POTASSIUM 25 MG TABLET PO ×2 (09:18→21:18)
[2022-07-17] MEDS: FUROSEMIDE 80 MG TABLET PO (09:18)
[2022-07-17] MEDS: THERAPEUTIC MULTIVITAMINS/MINERALS TAB (*BKC) 1 TABLET PO (09:18)
[2022-07-17] MEDS: THIAMINE HCL 100 MG TABLET PO (09:19)
[2022-07-17] MEDS: BENZONATATE 100 MG CAPSULE 200 MG PO ×3 (09:22→17:27)
[2022-07-17] MEDS: ENOXAPARIN 40 MG/0.4 ML SYRINGE SUB-Q (09:23)
[2022-07-17] MEDS: guaiFENesin 600 MG/DEXTROMETHORPHAN 30 MG SR TAB 12 HR 1 TAB PO ×2 (10:43→21:18)
--- NOTE | 2022-07-17 10:58 | PM.IMPN ---
Progress Note: A&P Assessment and Plan (1) COPD exacerbation: Code(s): J44.1 - Chronic obstructive pulmonary disease with (acute) exacerbation Status: Acute Assessment and Plan: Suspect COPD exacerbation, wheezing noted 07/16, continue levaquin, started 07/14, solumedrol, inhalers and nebs, monitor Cont pulmozyme, mucinex, tessalon perles, appreciate pulm consult, pending Albuterol and ipratropium increased from q.6 hours to q.4 hours, continue Solu-Medrol at current dose of 60 mg q.6 hours (2) Acute congestive heart failure: Code(s): I50.9 - Heart failure, unspecified Status: Acute Assessment and Plan: Echo showed an EF of 60-65% with grade 1 diastolic dysfunction, no pulmonary hypertension, mild valvular disease Appears euvolemic, creat + BUN increasing, edema resolved in LE, switch IV lasix to po home dose 07/16, creat + BUN still increasing, hold lasix 07/18 dose and monitor (3) Hypoxia: Code(s): R09.02 - Hypoxemia Status: Acute Assessment and Plan: Requiring supplemental oxygen by nasal cannula, unchanged, likely 2/2 COPD + HF, see above (4) Hypertension: Code(s): I10 - Essential (primary) hypertension Status: Acute Assessment and Plan: Continue home meds Continue to monitor BP reviewed 07/17 (5) Tobacco abuse: Code(s): Z72.0 - Tobacco use Status: Acute Assessment and Plan: Encouraged cessation (6) Alcohol dependence: Code(s): F10.20 - Alcohol dependence, uncomplicated Status: Acute Assessment and Plan: CIWA is 0, d/c librium and monitor Plan DVT prophylaxis with Lovenox GI prophylaxis with PPI Code status full code Subjective Date/time seen: 07/17/22 10:58 Interval history: 61-year-old male with past medical history significant for alcoholism is presenting with shortness of breath, weakness, frequent falls and a productive cough, found to be hypoxic in the ER, concerning for COPD versus heart failure. Patient states he was feeling much better earlier today, but is now suddenly much more short of breath. He is awaiting for breathing treatment. He has been up and around his room, still with wheezing. Short of breath even at rest right now, but earlier he was able to walk to the bathroom without much discomfort. Respiratory therapy has been consulted stat for breathing treatment. 93% on 3 L nasal cannula. On room air at home. Review of Systems Review of Systems: 12 point review of systems was assessed and was negative except as noted in the HPI Exam Narrative: General: In mild acute respiratory distress, alert oriented per baseline HEENT: Atraumatic, normocephalic, mucous membranes moist CV: Regular rate and rhythm, S1, S2 Lungs: Poor air entry, little air movement noted, soft end expiratory wheezes heard faintly, significantly diminished throughout Abdomen: Soft, nontender, nondistended Extremities: Normal to inspection, no edema Skin: No rashes noted, no lesions or wounds seen Psych: Euthymic, normal affect Objective Data Vital Signs Vital Signs: Vital Signs - 24 hr 07/16/22 14:00 07/16/22 14:15 07/16/22 14:00 Temperature 98.5 F Pulse Rate 98 102 H 119 H Respiratory Rate 20 20 16 Blood Pressure 103/71 Pulse Oximetry 93 Oxygen Delivery Oxygen Flow Rate Fraction of Inspired Oxygen 07/16/22 20:20 07/16/22 20:20 07/16/22 20:35 Temperature Pulse Rate 108 H 106 H 105 H Respiratory Rate 22 H 22 H Blood Pressure Pulse Oximetry 97 Oxygen Delivery Nasal Cannula Oxygen Flow Rate 3 Fraction of Inspired Oxygen 07/16/22 21:49 07/16/22 20:40 07/16/22 20:40 Temperature 98.6 F Pulse Rate 126 H 126 H Respiratory Rate 14 14 Blood Pressure 137/96 H 137/96 H Pulse Oximetry 90 90 Oxygen Delivery Nasal Cannula Oxygen Flow Rate 3 Fraction of Inspired Oxygen 28 07/17/22 02:12 07/17/22 05:47 07/17/22
[2022-07-17 12:22] LABS: Glucose Point of Care 156 mg/dl (65-105)
[2022-07-17 17:13] LABS: Glucose Point of Care 173 mg/dl (65-105)
--- NOTE | 2022-07-17 17:19 | PCPTNOTE ---
No Care Plan initiated due to patient being at prior level of function. Attempted to call attending x 2 and was unable to reach them. Will attempt to call and clarify discharge orders again tomorrow.
--- NOTE | 2022-07-17 19:52 | PM.CNPUL ---
Assessment and Plan Assessment and plan (1) COPD exacerbation: Code(s): J44.1 - Chronic obstructive pulmonary disease with (acute) exacerbation Status: Acute Assessment and Plan: He was admitted with increased cough, sputum, shortness of breath which is compatible with a COPD exacerbation. The patient has a history of emphysema at least dating back to 2018 radiographically. He is on a combination of medicines at home to treat COPD. He has not had pulmonary function testing. He recently quit smoking a few weeks ago, after maybe 40 years, up to 1.5 ppd. He has a mixed picture, COPD and volume overload. His BNP is elevated, he had leg swelling, feels better with diuresis and has been treated with a combination of medications for COPD. It is not clear what his baseline symptoms are as far as COPD. He is mainly focusing on being able to get into rehab after discharge, wants to discuss his weakness in his legs. His white blood cell count now is trending down were, he has no fever, his oxygen requirement is between 2 and 3 L a minute with saturation 92-95%. He will need a walk study prior to going home. I talked with him about a sleep evaluation. I explained that managing sleep apnea is critically important to managing heart failure. He does not have pulmonary hypertension. He has a primary care doctor, is not interested in seeing additional specialists. Recommendations: Lower IV steroids, change to po tomorrow. Oral Levaquin. PFTs 4-6 weeks after discharge to establish baseline COPD severity. Home O2 evaluation before discharge. . COPD meds to include LABA-ICS either Symbicort or Advair, and a LAMA such as Spiriva. He should not go home on Atrovent. Sleep evaluation in a few weeks. Consider cardiopulmonary rehab. He needs physical therapy for his leg weakness. This may need to be addressed first before trying to get him to cardiopulmonary rehab. He is a candidate for annual LDCT screening for lung cancer, smoked > 30 pack years, quit last month. (2) Lower extremity edema: Code(s): R60.0 - Localized edema Status: Acute Assessment and Plan: Improved with diuresis. 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 Not sure if he has had any specific evaluation. History of Present Illness History of Present Illness Consult date: 07/17/22 Requesting physician: Esther Emanuel DO Chief complaint: COPD exacerbation Narrative: Patient was seen on 19:55 July 17, 2022 NEW: Noe Childers is a 61-year-old man with COPD, a long history of tobacco abuse, quit 2 or 3 weeks ago. He was admitted Jul 14 with 4 days of increased shortness of breath, cough, increased sputum production with a beige color, sore throat, and worsening weakness. WBC was 10 on admission, increased to 19.5. Na+ 129, BUN 19, creat 1.2. Hemoglobin A1c was 4.8, normal. His BNP this admission is 1490 on July 14, last month June 18 this was 907. He was treated with IV Levaquin, IV Solu-Medrol 60 IV q.6, nebulized albuterol and ipratropium, Pulmozyme, Mucinex and Tessalon Perles. He feels considerably improved. His lower extremity edema is much better. His echocardiogram shows diastolic dysfunction grade 1 and EF is normal 60-65%. He does not have pulmonary hypertension. 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 He has had a DVT in the left lower leg He wants to know if he is a candidate for rehab after discharge for his leg weakness and falls. I told him that I am focusing on his breathing issues, and that his hospitalist will focus on all his symptoms, dec
[2022-07-17 20:24] LABS: Glucose Point of Care 173 mg/dl (65-105)
[2022-07-17] MEDS: traZODone HCL 50 MG TABLET 100 MG PO (21:17)
[2022-07-17] MEDS: FAMOTIDINE 10 MG TABLET PO (21:18)
[2022-07-17] MEDS: SIMVASTATIN 20 MG TABLET 40 MG PO (21:18)
[2022-07-18] VITALS (16 sets, daily range): BP systolic 125–138; BP diastolic 61–68; PULSE 87–105; RESP 14–20; TEMP 36.4–36.8; O2SAT 95–100
[2022-07-18] MEDS: IPRATROPIUM BR 0.02% INH SOLN 0.5 MG/2.5 ML VIAL INHALATION ×6 (00:51→19:59)
[2022-07-18] MEDS: ALBUTEROL SULFATE NEB 2.5 MG/3 ML INH INHALATION ×6 (00:51→19:59)
[2022-07-18] MEDS: methylPREDNISolone SOD SUCC 125 MG VIAL 60 MG IV PUSH (05:36)
[2022-07-18 06:35] LABS: Basophils Percent Auto 0.1 % (0.2-1.2); Hematocrit 33.9 % (42.0-52.0); Hemoglobin 10.7 g/dL (14.0-18.0); Immature Granulocyte Absolute 0.29 K/mm3 (0.00-0.031); Immature Granulocyte Percent A 1.8 % (0-0.5); Lymphocytes Absolute Auto 0.76 K/mm3 (0.9-3.2); Lymphocytes Percent Auto 4.8 % (18.3-44.2); Mean Corpuscular HGB Conc 31.6 g/dl (32-36); Mean Corpuscular Hemoglobin 32.9 pg (26-34); Mean Corpuscular Volume 104.3 fl (80-100); Mean Platelet Volume 9.1 fl (7.4-10.4); Monocytes Absolute Auto 0.8 K/mm3 (0.1-0.6); Monocytes Percent Auto 4.8 % (2.6-8.5); Neutrophils Absolute Auto 14.1 K/mm3 (1.3-6.7); Neutrophils Percent Auto 88.5 % (45.5-73.1); Platelet Count Result 435 k/mm3 (150-375); Red Blood Count 3.25 M/mm3 (4.6-6.20); Red Cell Distribution Width 14.3 % (11.5-14.5)
[2022-07-18 07:24] LABS: Alanine Aminotransferase 20 U/L (6-50); Albumin Level 3.2 g/dL (3.5-5.1); Alkaline Phosphatase 59 U/L (38-126); Anion Gap 3 mmol/L (8-16); Aspartate Amino Transferase 23 U/L (17-59); Bilirubin,Total 0.2 mg/dL (0.2-1.3); Blood Urea Nitrogen 38 mg/dL (9-20); Calcium 8.1 mg/dL (8.4-10.2); Carbon Dioxide 35 mmol/L (22-30); Chloride 95 mmol/L (98-107); Estimated CRCL calculation 49 ml/min; Estimated Glomerular Filt Rate 52; Glucose 166 mg/dL (65-110); Sodium 133 mmol/L (137-145)
[2022-07-18] MEDS: BUDESONIDE RESPULE NEB 0.5 MG/2 ML AMP INHALATION ×2 (07:33→19:59)
[2022-07-18] MEDS: DORNASE ALFA INH SOLN 1 MG/ML 2.5 ML AMP 2.5 MG INHALATION ×2 (07:33→20:00)
[2022-07-18] MEDS: LOSARTAN POTASSIUM 25 MG TABLET PO ×2 (08:09→21:22)
[2022-07-18] MEDS: PANTOPRAZOLE 40 MG TABLET PO (08:09)
[2022-07-18] MEDS: THIAMINE HCL 100 MG TABLET PO (08:09)
[2022-07-18] MEDS: THERAPEUTIC MULTIVITAMINS/MINERALS TAB (*BKC) 1 TABLET PO (08:09)
[2022-07-18] MEDS: BENZONATATE 100 MG CAPSULE 200 MG PO ×3 (08:09→17:11)
[2022-07-18] MEDS: ENOXAPARIN 40 MG/0.4 ML SYRINGE SUB-Q (08:09)
[2022-07-18] MEDS: guaiFENesin 600 MG/DEXTROMETHORPHAN 30 MG SR TAB 12 HR 1 TAB PO ×2 (08:09→21:22)
[2022-07-18 08:39] LABS: Glucose Point of Care 141 mg/dl (65-105)
--- NOTE | 2022-07-18 12:05 | PM.IMPN ---
Progress Note: A&P Assessment and Plan (1) COPD exacerbation: Code(s): J44.1 - Chronic obstructive pulmonary disease with (acute) exacerbation Status: Acute Assessment and Plan: Suspect COPD exacerbation, wheezing noted 07/16, continue levaquin, started 07/14, solumedrol, inhalers and nebs, monitor Cont pulmozyme, mucinex, tessalon perles, appreciate pulm consult, discussed with Dr. Mejía Albuterol and ipratropium increased from q.6 hours to q.4 hours, continue Solu-Medrol at current dose of 60 mg q.6 hours (2) Acute congestive heart failure: Code(s): I50.9 - Heart failure, unspecified Status: Acute Assessment and Plan: Echo showed an EF of 60-65% with grade 1 diastolic dysfunction, no pulmonary hypertension, mild valvular disease Appears euvolemic, creat + BUN increasing, edema resolved in LE, switch IV lasix to po home dose 07/16, creat + BUN still increasing, hold lasix 07/18 dose and monitor (3) Hypoxia: Code(s): R09.02 - Hypoxemia Status: Acute Assessment and Plan: Requiring supplemental oxygen by nasal cannula, unchanged, likely 2/2 COPD + HF, see above (4) Hypertension: Code(s): I10 - Essential (primary) hypertension Status: Acute Assessment and Plan: Continue home meds Continue to monitor BP reviewed 07/18 (5) Tobacco abuse: Code(s): Z72.0 - Tobacco use Status: Acute Assessment and Plan: Encouraged cessation (6) Alcohol dependence: Code(s): F10.20 - Alcohol dependence, uncomplicated Status: Acute Assessment and Plan: CIWA is 0, d/c librium and monitor Plan DVT prophylaxis with Lovenox GI prophylaxis with PPI Code status full code Subjective Date/time seen: 07/18/22 12:05 Interval history: 61-year-old male with past medical history significant for alcoholism is presenting with shortness of breath, weakness, frequent falls and a productive cough, found to be hypoxic in the ER, concerning for COPD versus heart failure. No overnight events noted. No chest pain, improved shortness of breath. No nausea, vomiting or diarrhea. No fevers or chills. 95% on 2 L nasal cannula. On room air at home. Review of Systems Review of Systems: 12 point review of systems was assessed and was negative except as noted in the HPI Exam Narrative: General: In mild acute respiratory distress, alert oriented per baseline HEENT: Atraumatic, normocephalic, mucous membranes moist CV: Regular rate and rhythm, S1, S2 Lungs: Scattered wheezes with diminished air entry throughout Abdomen: Soft, nontender, nondistended Extremities: Normal to inspection, no edema Skin: No rashes noted, no lesions or wounds seen Psych: Euthymic, normal affect Objective Data Vital Signs Vital Signs: Vital Signs - 24 hr 07/17/22 14:41 07/17/22 14:53 07/17/22 14:00 Temperature 98.3 F Pulse Rate 98 101 H 98 Respiratory Rate 20 20 20 Blood Pressure 114/69 Pulse Oximetry 95 Oxygen Delivery Oxygen Flow Rate 07/17/22 20:28 07/17/22 20:32 07/17/22 21:29 Temperature 98.0 F Pulse Rate 95 89 Respiratory Rate 20 14 Blood Pressure 136/73 Pulse Oximetry 94 94 Oxygen Delivery Nasal Cannula Oxygen Flow Rate 3 07/17/22 20:00 07/18/22 00:53 07/17/22 20:48 Temperature Pulse Rate 89 99 Respiratory Rate 18 20 Blood Pressure Pulse Oximetry 94 Oxygen Delivery Nasal Cannula Oxygen Flow Rate 3 07/18/22 01:06 07/18/22 05:08 07/18/22 06:00 Temperature 97.9 F Pulse Rate 91 87 105 H Respiratory Rate 18 18 14 Blood Pressure 125/67 Pulse Oximetry 100 Oxygen Delivery Oxygen Flow Rate 07/18/22 07:38 07/18/22 07:39 07/18/22 08:02 Temperature Pulse Rate 99 96 Respiratory Rate 18 18 Blood Pressure Pulse Oximetry 95 Oxygen Delivery Nasal Cannula Oxygen Flow Rate 2 07/18/22 08:00 07/18/22 11:34 Temperature Pulse Rate 100
[2022-07-18 12:18] LABS: Glucose Point of Care 170 mg/dl (65-105)
[2022-07-18] MEDS: methylPREDNISolone SOD SUCC 40 MG VIAL IV PUSH ×2 (14:02→21:24)
[2022-07-18 17:13] LABS: Glucose Point of Care 154 mg/dl (65-105)
[2022-07-18] MEDS: FAMOTIDINE 10 MG TABLET PO (21:22)
[2022-07-18] MEDS: traZODone HCL 50 MG TABLET 100 MG PO (21:22)
[2022-07-18] MEDS: SIMVASTATIN 20 MG TABLET 40 MG PO (21:24)
[2022-07-19] VITALS (9 sets, daily range): BP systolic 119–147; BP diastolic 59–92; PULSE 88–112; RESP 20; TEMP 36.3–36.6; O2SAT 93–100
[2022-07-19] MEDS: ALBUTEROL SULFATE NEB 2.5 MG/3 ML INH INHALATION ×2 (00:14→10:51)
[2022-07-19] MEDS: IPRATROPIUM BR 0.02% INH SOLN 0.5 MG/2.5 ML VIAL INHALATION ×3 (00:14→10:51)
[2022-07-19 03:22] LABS: Glucose Point of Care 190 mg/dl (65-105)
[2022-07-19] MEDS: methylPREDNISolone SOD SUCC 40 MG VIAL IV PUSH ×2 (05:24→13:07)
[2022-07-19 06:31] LABS: Basophils Absolute Auto 0.1 K/mm3 (0.0-0.1); Basophils Percent Auto 0.3 % (0.2-1.2); Hematocrit 33.6 % (42.0-52.0); Immature Granulocyte Absolute 0.45 K/mm3 (0.00-0.031); Immature Granulocyte Percent A 2.8 % (0-0.5); Lymphocytes Absolute Auto 1.15 K/mm3 (0.9-3.2); Lymphocytes Percent Auto 7.2 % (18.3-44.2); Mean Corpuscular HGB Conc 32.7 g/dl (32-36); Mean Corpuscular Hemoglobin 33.8 pg (26-34); Mean Corpuscular Volume 103.4 fl (80-100); Mean Platelet Volume 8.9 fl (7.4-10.4); Monocytes Absolute Auto 1.4 K/mm3 (0.1-0.6); Monocytes Percent Auto 8.7 % (2.6-8.5); Platelet Count Result 419 k/mm3 (150-375); Red Blood Count 3.25 M/mm3 (4.6-6.20); Red Cell Distribution Width 14.4 % (11.5-14.5); White Blood Count 16.1 K/mm3 (4.5-10.0)
[2022-07-19 06:44] LABS: Alanine Aminotransferase 20 U/L (6-50); Albumin Level 3.2 g/dL (3.5-5.1); Alkaline Phosphatase 57 U/L (38-126); Anion Gap 0 mmol/L (8-16); Aspartate Amino Transferase 23 U/L (17-59); Bilirubin,Total 0.3 mg/dL (0.2-1.3); Blood Urea Nitrogen 36 mg/dL (9-20); Calcium 8.5 mg/dL (8.4-10.2); Carbon Dioxide 34 mmol/L (22-30); Chloride 98 mmol/L (98-107); Estimated CRCL calculation 61 ml/min; Estimated Glomerular Filt Rate > 60; Glucose 117 mg/dL (65-110); Potassium 4.4 mmol/L (3.4-5.0); Sodium 132 mmol/L (137-145)
[2022-07-19 07:38] LABS: Glucose Point of Care 157 mg/dl (65-105)
[2022-07-19] MEDS: ENOXAPARIN 40 MG/0.4 ML SYRINGE SUB-Q (08:42)
[2022-07-19] MEDS: THERAPEUTIC MULTIVITAMINS/MINERALS TAB (*BKC) 1 TABLET PO (08:43)
[2022-07-19] MEDS: LOSARTAN POTASSIUM 25 MG TABLET PO (08:43)
[2022-07-19] MEDS: guaiFENesin 600 MG/DEXTROMETHORPHAN 30 MG SR TAB 12 HR 1 TAB PO (08:43)
[2022-07-19] MEDS: PANTOPRAZOLE 40 MG TABLET PO (08:43)
[2022-07-19] MEDS: THIAMINE HCL 100 MG TABLET PO (08:43)
[2022-07-19] MEDS: BENZONATATE 100 MG CAPSULE 200 MG PO ×2 (08:46→13:07)
--- NOTE | 2022-07-19 10:01 | PM.IMPN ---
Progress Note: A&P Assessment and Plan (1) COPD exacerbation: Code(s): J44.1 - Chronic obstructive pulmonary disease with (acute) exacerbation Status: Acute Assessment and Plan: Suspect COPD exacerbation, wheezing noted 07/16, continue levaquin, started 07/14, solumedrol, inhalers and nebs, monitor Cont pulmozyme, mucinex, tessalon perles, appreciate pulm consult, discussed with Dr. Mejía Albuterol and ipratropium increased from q.6 hours to q.4 hours, continue Solu-Medrol at current dose of 60 mg q.6 hours (2) Acute congestive heart failure: Code(s): I50.9 - Heart failure, unspecified Status: Acute Assessment and Plan: Echo showed an EF of 60-65% with grade 1 diastolic dysfunction, no pulmonary hypertension, mild valvular disease Appears euvolemic, creat + BUN increasing, edema resolved in LE, switch IV lasix to po home dose 07/16, creat + BUN still increasing, hold lasix 07/18 dose and monitor (3) Hypoxia: Code(s): R09.02 - Hypoxemia Status: Acute Assessment and Plan: Requiring supplemental oxygen by nasal cannula, unchanged, likely 2/2 COPD + HF, see above (4) Hypertension: Code(s): I10 - Essential (primary) hypertension Status: Acute Assessment and Plan: Continue home meds Continue to monitor BP reviewed 07/18 (5) Tobacco abuse: Code(s): Z72.0 - Tobacco use Status: Acute Assessment and Plan: Encouraged cessation (6) Alcohol dependence: Code(s): F10.20 - Alcohol dependence, uncomplicated Status: Acute Assessment and Plan: CIWA is 0, d/c librium and monitor Plan DVT prophylaxis with Lovenox GI prophylaxis with PPI Code status full code Subjective Date/time seen: 07/19/22 10:01 Interval history: 61-year-old male with past medical history significant for alcoholism is presenting with shortness of breath, weakness, frequent falls and a productive cough, found to be hypoxic in the ER, concerning for COPD versus heart failure. No overnight events noted. No chest pain, improved shortness of breath. No nausea, vomiting or diarrhea. No fevers or chills. 95% on 2 L nasal cannula. On room air at home. Review of Systems Review of Systems: 12 point review of systems was assessed and was negative except as noted in the HPI Exam Narrative: General: In mild acute respiratory distress, alert oriented per baseline HEENT: Atraumatic, normocephalic, mucous membranes moist CV: Regular rate and rhythm, S1, S2 Lungs: Scattered wheezes with diminished air entry throughout Abdomen: Soft, nontender, nondistended Extremities: Normal to inspection, no edema Skin: No rashes noted, no lesions or wounds seen Psych: Euthymic, normal affect Objective Data Vital Signs Vital Signs: Vital Signs - 24 hr 07/18/22 11:34 07/18/22 16:25 07/18/22 16:36 Temperature Pulse Rate 100 97 94 Respiratory Rate 20 20 20 Blood Pressure Pulse Oximetry Oxygen Delivery Oxygen Flow Rate 07/18/22 14:00 07/18/22 20:03 07/18/22 20:04 Temperature 97.6 F Pulse Rate 101 H 96 Respiratory Rate 20 20 Blood Pressure 129/68 Pulse Oximetry 99 95 Oxygen Delivery Nasal Cannula Oxygen Flow Rate 2 07/18/22 20:28 07/18/22 22:00 07/19/22 00:16 Temperature 98.2 F Pulse Rate 98 102 H 90 Respiratory Rate 20 18 20 Blood Pressure 138/61 Pulse Oximetry 100 Oxygen Delivery Oxygen Flow Rate 07/19/22 00:30 07/19/22 02:17 07/19/22 03:51 Temperature 97.4 F L Pulse Rate 92 97 88 Respiratory Rate 20 20 20 Blood Pressure 119/59 L Pulse Oximetry 94 Oxygen Delivery Oxygen Flow Rate Intake/Output Intake/Output: Intake & Output 07/16/22 07/17/22 07/18/22 07/19/22 23:59 23:59 23:59 23:59 Intake Total 1370 2220 3250 550 Balance 1370 2220 3250 550 Meds/Results Medications: Active Medications Generic Name Dose Route Start Last Admin Tra
[2022-07-19] MEDS: BUDESONIDE RESPULE NEB 0.5 MG/2 ML AMP INHALATION (10:51)
[2022-07-19] MEDS: DORNASE ALFA INH SOLN 1 MG/ML 2.5 ML AMP 2.5 MG INHALATION (10:51)
[2022-07-19 11:19] LABS: Glucose Point of Care 158 mg/dl (65-105)
--- NOTE | 2022-07-19 13:08 | PM.PNPUL ---
Progress Note: A&P Assessment and Plan (1) COPD exacerbation: Code(s): J44.1 - Chronic obstructive pulmonary disease with (acute) exacerbation Status: Acute Assessment and Plan: 07/17/2022 He was admitted with increased cough, sputum, shortness of breath which is compatible with a COPD exacerbation.? The patient has a history of emphysema at least dating back to 2018 radiographically.? He is on a combination of medicines at home to treat COPD.? He has not had pulmonary function testing.? He recently quit smoking a few weeks ago, after maybe 40 years, up to 1.5 ppd.? He has a mixed picture, COPD and volume overload.? His BNP is elevated, he had leg swelling, feels better with diuresis and has been treated with a combination of medications for COPD. It is not clear what his baseline symptoms are as far as COPD. He is mainly focusing on being able to get into rehab after discharge, wants to discuss his weakness in his legs.? His white blood cell count now is trending down were, he has no fever, his oxygen requirement is between 2 and 3 L a minute with saturation 92-95%.? He will need a walk study prior to going home.? I talked with him about a sleep evaluation.? I explained that managing sleep apnea is critically important to managing heart failure.? He does not have pulmonary hypertension.? He has a primary care doctor, is not interested in seeing additional specialists. Recommendations: Lower IV steroids, change to po tomorrow. Oral Levaquin. PFTs 4-6 weeks after discharge to establish baseline COPD severity.? Home O2 evaluation before discharge. . COPD meds to include LABA-ICS either Symbicort or Advair, and a LAMA such as Spiriva. He should not go home on Atrovent. Sleep evaluation in a few weeks. Consider cardiopulmonary rehab.? He needs physical therapy for his leg weakness. This may need to be addressed first before trying to get him to cardiopulmonary rehab. He is a candidate for annual LDCT screening for lung cancer, smoked > 30 pack years, quit last month. 07/19: Patient states he feels similar today compared to yesterday. His cough is improved. Currently is on 2 L nasal cannula 97% sats. He has dyspnea on exertion when walking across the room. His white blood cell count is 16.1, his creatinine is 1.0. Plan: I will change his Solu-Medrol to prednisone 40 mg p.o. q.day (day 6 total steroids), continue albuterol and ipratropium nebulizers q.4 hours, Continue budesonide 0.5 mg nebulized q.12 hours, continue Mucinex DM 1 tablet b.i.d., continue Tessalon Perles 200 mg p.o. t.i.d.. I will discontinue dornase as received 48 hours. Continue Levaquin 750 mg q.day (day5 today). I will order overnight oximetry on room air to assess his oxygen needs at night. I will check an ABG on 2 L nasal cannula to assess for hypercarbic respiratory failure. 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 Not sure if he has had any specific evaluation. Echocardiogram on 07/15/2022 shows LV EF 60-65%, grade 1 diastolic dysfunction, trace aortic valve regurg, trace tricuspid valve regurg with a PASP of 31. CT scan of the chest demonstrates mild apical predominant panlobular emphysema with no evidence of post covered interstitial lung disease or organizing pneumonia. Patient will need PFTs as an outpatient. Subjective Date/time seen: 07/19/22 13:08 Interval history: 07/17 NEW: Noe Childers is a 61-year-old man with COPD, a long history of tobacco abuse, quit 2 or 3 weeks ago. He was admitted Jul 14 with 4 days of? increased shortness of breath, cough, increased sputum production with a beige color, sore throat, and worsening weakness.? WBC was 10 on admission, increased to 19.5. Na+ 129, BUN 19, creat 1.2. Hemoglobin A1c was 4.8, normal.? His BNP this admission is?1490?on Alvin
--- NOTE | 2022-07-19 13:19 | P.CDI_ITS ---
CDI Query Clarified Diagnosis Clarified Diagnosis: BNP elevated on 07/14/22 lab work. Documented history of CHF. CHF noted on the assessment and plan. Furosemide listed as a home medication. Pt receiving Furosemide. 07/15/22 Chest xray notes pulmonary edema. Please specify type and acuity of heart failure if known. * Acute * Chronic * Acute on Chronic * Unknown * Systolic * Diastolic * Combined Systolic and Diastolic * Unknown
--- NOTE | 2022-07-19 13:33 | PM.DS ---
DS: Admitting Diagnosis Discharge Date 07/19 Admitting Diagnosis sob DS: Discharge Diagnosis Discharge Diagnosis (1) COPD exacerbation: Code(s): J44.1 - Chronic obstructive pulmonary disease with (acute) exacerbation Status: Acute Assessment and Plan: Suspect COPD exacerbation, wheezing noted 07/16, continue levaquin, started 07/14, solumedrol, inhalers and nebs, monitor Cont pulmozyme, mucinex, tessalon perles, appreciate pulm consult, discussed with Dr. Mejía Albuterol and ipratropium increased from q.6 hours to q.4 hours, continue Solu-Medrol at current dose of 60 mg q.6 hours (2) Acute congestive heart failure: Code(s): I50.9 - Heart failure, unspecified Status: Acute Assessment and Plan: Echo showed an EF of 60-65% with grade 1 diastolic dysfunction, no pulmonary hypertension, mild valvular disease Appears euvolemic, creat + BUN increasing, edema resolved in LE, switch IV lasix to po home dose 07/16, creat + BUN still increasing, hold lasix 07/18 dose and monitor (3) Hypoxia: Code(s): R09.02 - Hypoxemia Status: Acute Assessment and Plan: Requiring supplemental oxygen by nasal cannula, unchanged, likely 2/2 COPD + HF, see above (4) Hypertension: Code(s): I10 - Essential (primary) hypertension Status: Acute Assessment and Plan: Continue home meds Continue to monitor BP reviewed 07/18 (5) Tobacco abuse: Code(s): Z72.0 - Tobacco use Status: Acute Assessment and Plan: Encouraged cessation (6) Alcohol dependence: Code(s): F10.20 - Alcohol dependence, uncomplicated Status: Acute Assessment and Plan: CIWA is 0, d/c librium and monitor Plan DVT prophylaxis with Lovenox GI prophylaxis with PPI Code status full code DS: Summary Hospital Course Hospital Course: 61-year-old male with past medical history significant for alcoholism is presenting with shortness of breath, weakness, frequent falls and a productive cough, found to be hypoxic in the ER, concerning for COPD versus heart failure. Pulmonology was consulted. He was started on Levaquin and steroids. Symptoms improved significantly. He was also diuresed with IV Lasix. He started to have acute kidney injury and so this was held. He was discharged on his home Lasix dose and medications per pulmonology recommendations. Please see their consult in the med rec for details. See above for details. Patient was discharged to a nursing facility for further care and rehab. Time Spent with Patient Time attestation: Total time spent providing and/or coordinating discharge services: Exam Narrative: General: In mild acute respiratory distress, alert oriented per baseline HEENT: Atraumatic, normocephalic, mucous membranes moist CV: Regular rate and rhythm, S1, S2 Lungs: Scattered wheezes with diminished air entry throughout Abdomen: Soft, nontender, nondistended Extremities: Normal to inspection, no edema Skin: No rashes noted, no lesions or wounds seen Psych: Euthymic, normal affect DS: Data Data Completed and Pending Labs on day of discharge: Labs from last 24 hours 07/19/22 07/19/22 07/19/22 11:14 07:30 06:03 WBC RBC Hgb Hct MCV MCH MCHC RDW Plt Count MPV Immature Gran % (Auto) Neut % (Auto) Lymph % (Auto) [place] % (Auto) Eos % (Auto) Baso % (Auto) Lymph # (Auto) [place] # (Auto) Eos # (Auto) Baso # (Auto) Abs Immat Gran (auto) Absolute Neuts (auto) Absolute Nucleated RBC Nucleated RBC % Sodium 132 L Potassium 4.4 Chloride 98 Carbon Dioxide 34 H Anion Gap 0 L BUN 36 H Creatinine 1.10 Estim Creat Clear Calc 61 Estimated GFR > 60 Glucose 117 H POC Capillary Glucose 158 H 157 H Calcium 8.5 Total Bilirubin 0.3 AST 23 ALT 20 Alkaline Phosphatase 57 Total Protein 6.0 L Albumin
[2022-07-19 14:10] LABS: Alveolar/Arterial O2 Gradient 65.3 mmHg; Base Excess ABG 4.2 mEq/l (+/-2.0); Fractional Inspired Oxygen 28 %; HCO3 ABG 30.4 mEq/l (22.0-26.0); Modified Allen's Test Pass; Oxygen Content ABG 15.8 %vol (16.0-22.0); PCO2 ABG 52.7 mmHg (35.0-45.0); PO2 ABG 72.2 mmHg (80.0-100.0); PO2 FiO2 Ratio Arterial Blood 2.58 %; Site Drawn LEFT RADIAL; Total Hemoglobin 11.9 g/dL (12.0-18.0); pH ABG 7.379 (7.350-7.450)
[2022-07-19 14:11] LABS: Device NASAL CANNULA
[2022-07-19 16:19] LABS: EDCOVIDSCREEN Negative (Negative)
--- NOTE | 2022-07-19 16:21 | PCRCNOTE ---
HOME O2 EVAL NOT DONE. PATIENT GOING TO REHAB. RN NOTIFIED.
[2022-07-19 16:40] LABS: Glucose Point of Care 145 mg/dl (65-105)
== END 2022-07-19 18:15 | DRG 190 ==
LOC: ANHED 16:43 → ANH3MEDSUR 20:39
PROVIDERS: General Practice; Internal Medicine Pulmonary Disease; Admitting Provider Internal Medicine; Emergency Provider Emergency Medicine; PCP Hospitalist; Visit Provider Student in an Organized Health Care Education/Training Program
DX: J43.9 Emphysema, unspecified (principal); I50.33 Acute on chronic diastolic (congestive) heart failure; R09.02 Hypoxemia; F10.20 Alcohol dependence, uncomplicated; U09.9 Post COVID-19 condition, unspecified; I11.0 Hypertensive heart disease with heart failure; G47.30 Sleep apnea, unspecified; Z20.822 Contact with and (suspected) exposure to COVID-19; Z87.891 Personal history of nicotine dependence; Z79.52 Long term (current) use of systemic steroids
CPT/HCPCS: 36415; 36600; 71045; 71046; 71250; 80053; 82805; 82948; 83036; 83880; 84484; 85025; 85610; 85730; 87040; 87426; 92610; 93005; 93306; 94640; 96365; 96366; 96372; 96374; 96375; 96376; 97163; 97165; 99285; A9270; C9803; G0378; J1650; J1940; J1956; J2920; J2930; J3411

== ENCOUNTER 2022-07-26 10:42 | Emergency (ER) | payer MEDICARE, MEDICAID, SELFPAY ==
[2022-07-26] VITALS (15 sets, daily range): BP systolic 87–109; BP diastolic 60–77; PULSE 69–76; RESP 14–22; TEMP 36.7; O2SAT 91–100
--- NOTE | ~2022-07-26 | XR_ITS ---
EXAMINATION: XR chest 2V DATE: 07/26/2022 11:48 INDICATION: Chest pain and shortness of breath TECHNIQUE: frontal and lateral views of the chest were obtained. COMPARISON: Chest radiograph dated 07/17/[address] dated 07/15/2022 FINDINGS: Decreased right lung volume with mild elevation the right hemidiaphragm. There are persistent opaciti es at the bilateral lung bases. Small right pleural effusion. No pneumothorax or left pleural effusio n. Heart size is within normal limits for AP technique. Mild thoracic spondylosis. Callus formation a ssociated with a few bilateral healing rib fractures. IMPRESSION: 1. Opacities at the bilateral lung bases which could represent atelectasis, pulmonary edema and/or pn eumonia. 2. Small right pleural effusion. Reviewed, dictated and finalized at location A. IMPRESSION: 1. Opacities at the bilateral lung bases which could represent atelectasis, pul monary edema and/or pneumonia. 2. Small right pleural effusion.
--- NOTE | 2022-07-26 11:16 | ECG_ITS ---
Measurements Intervals [place] Rate: 69 P: 30 [place]: 159 QRS: 11 QRSD: 109 T: 45 QT: 370 QTc: 399 Interpretive Statements SINUS RHYTHM NORMAL EKG COMPARED TO ECG 07/14/2022 16:28:58 NO SIGNIFICANT CHANGES Electronically Signed On 07-26-2022 12:29:13 CDT by Gab Lu M.D.
[2022-07-26 11:33] LABS: Basophils Absolute Auto 0.1 K/mm3 (0.0-0.1); Basophils Percent Auto 0.4 % (0.2-1.2); Eosinophils Absolute Auto 0.1 K/mm3 (0-0.3); Eosinophils Percent Auto 0.7 % (0-4.4); Hematocrit 35.2 % (42.0-52.0); Hemoglobin 11.4 g/dL (14.0-18.0); Immature Granulocyte Absolute 0.34 K/mm3 (0.00-0.031); Immature Granulocyte Percent A 2.7 % (0-0.5); Lymphocytes Percent Auto 14.2 % (18.3-44.2); Mean Corpuscular HGB Conc 32.4 g/dl (32-36); Mean Corpuscular Hemoglobin 33.8 pg (26-34); Mean Corpuscular Volume 104.5 fl (80-100); Mean Platelet Volume 8.4 fl (7.4-10.4); Monocytes Absolute Auto 1.4 K/mm3 (0.1-0.6); Monocytes Percent Auto 11.2 % (2.6-8.5); Neutrophils Percent Auto 70.8 % (45.5-73.1); Platelet Count Result 398 k/mm3 (150-375); Red Blood Count 3.37 M/mm3 (4.6-6.20); Red Cell Distribution Width 14.6 % (11.5-14.5); White Blood Count 12.7 K/mm3 (4.5-10.0)
[2022-07-26 12:12] LABS: Prothrombin Time 13.1 Seconds (11.1-14.7)
[2022-07-26 12:13] LABS: Partial Thromboplastin Time 25.5 SECONDS (22.3-36.8)
[2022-07-26 12:23] LABS: Alanine Aminotransferase 16 U/L (6-50); Albumin Level 3.3 g/dL (3.5-5.1); Alkaline Phosphatase 50 U/L (38-126); Aspartate Amino Transferase 20 U/L (17-59); Bilirubin,Total 0.4 mg/dL (0.2-1.3); Blood Urea Nitrogen 28 mg/dL (9-20); Calcium 8.2 mg/dL (8.4-10.2); Carbon Dioxide > 40 mmol/L (22-30); Chloride 95 mmol/L (98-107); Estimated CRCL calculation 59 ml/min; Estimated Glomerular Filt Rate 56; Glucose 96 mg/dL (65-110); Lipase 294 U/L (23-300); Potassium 4.3 mmol/L (3.4-5.0); Sodium 134 mmol/L (137-145)
--- NOTE | 2022-07-26 12:26 | ED.CHESTPAIN ---
HPI - Chest Pain General Chief Complaint: Chest Pain Stated Complaint: SOB Time Seen by Provider: 07/26/22 12:24 Source: patient and RN notes reviewed Mode of arrival: EMS Limitations: no limitations History of Present Illness HPI narrative: 62 years old white male came from rehab with a chief complaint of hard to breathe, with coughing, has been going for the last 2 years today is not different than 1 week or 2 weeks ago, the symptoms started after having COVID, March 2022. Patient denies any fever, chills, nausea, vomiting, or chest pain. Patient also denies any aggravating or relieving factors or swelling of the lower extremities. Patient was discharged from our facility few days ago because of congestive heart failure. Related Data Home Medications Medication Instructions Recorded Confirmed citalopram 20 mg tablet 20 mg PO DAILY 06/18/22 06/18/22 cyclobenzaprine 10 mg tablet 10 mg PRN 06/18/22 06/18/22 famotidine 40 mg tablet 10 mg PO HS 06/18/22 07/14/22 fenofibrate micronized 200 mg 200 mg PO DAILY 06/18/22 06/18/22 capsule fexofenadine 180 mg tablet 180 mg PO DAILY 06/18/22 06/18/22 fluticasone 250 mcg-salmeterol 50 1 inh inhalation BID 06/18/22 06/18/22 mcg/dose blistr powdr for inhalation (Advair Diskus) folic acid 1 mg tablet 1 mg PO DAILY 06/18/22 06/18/22 furosemide 80 mg tablet 80 mg PO DAILY 06/18/22 07/14/22 guaifenesin 600 mg tablet, 600 mg PO BID 06/18/22 06/18/22 extended release 12 hr (Mucus Relief ER) hydroxyzine HCl 10 mg tablet 10 mg PO TID 06/18/22 06/18/22 losartan 50 mg tablet 25 mg PO BID 06/18/22 07/14/22 multivitamin-iron 9 mg-folic acid 1 tablet PO DAILY 06/18/22 07/14/22 400 mcg-calcium and minerals tablet (Thera-M) pantoprazole 40 mg tablet,delayed 40 mg PO DAILY 06/18/22 07/14/22 release potassium chloride 20 mEq 20 meq PO DAILY 06/18/22 06/18/22 tablet,extended release propranolol 20 mg tablet 20 mg PO DAILY 06/18/22 07/14/22 simvastatin 40 mg tablet 40 mg PO HS 06/18/22 07/14/22 thiamine HCl (vitamin B1) 100 mg 100 mg PO DAILY 06/18/22 07/14/22 tablet tiotropium bromide 2.5 2 inh inhalation DAILY 06/18/22 07/14/22 mcg/actuation mist for inhalation (Spiriva Respimat) trazodone 100 mg tablet 100 mg PO HS 06/18/22 07/14/22 vitamin B comp no.3-folic acid 1 1 tablet PO DAILY 06/18/22 06/18/22 mg-vit C 60 mg-biotin 300 mcg tablet (Nirali-May Rx) Allergies Allergy/AdvReac Type Severity Reaction Status Date / Time No Known Allergies Allergy Mild Verified 07/14/22 12:41 Review of Systems Review of Systems: All systems reviewed & are unremarkable except as noted in HPI and below PMFSH Past Medical History Medical History Chronic obstructive pulmonary disease Deep venous thrombosis Heart failure of unknown type Hyperlipidemia Hypertension Tobacco abuse Surgical History Surgical History History of dental surgery Family History Family History Other Diabetes mellitus Family history of arthritis Family history of mental disorder Family history of seizure disorder Hypertension Social History Social History Social History: Surrogate medical decision maker: None. Code status: Full code. Smoking packs per day: 1 Smoking cigarettes per day: 20.0 Smoking status: Former smoker Tobacco type: cigarettes Smoking end date: 07/09/22 Alcohol intake: current Alcohol use details: Social alcohol in moderation. Substance use: current Substance use type: marijuana Other substance usage details: 1 5th of vodka per week Lack of Transportation: No Lack of Food: Never True Current Housing: I Have Housing Concerned About Future Housing: No Difficulty Paying Gas/Electric Bills: No Difficulty Paying for Meds: No Cu
[2022-07-26 12:33] LABS: Troponin I < 0.012 ng/mL (0.000-0.034)
[2022-07-26] MEDS: ASPIRIN 81 MG CHEWABLE TABLET 324 MG PO (13:08)
== END 2022-07-26 13:25 ==
PROVIDERS: General Practice; Emergency Provider Emergency Medicine; PCP Hospitalist
DX: R05.3 Chronic cough (principal); J44.9 Chronic obstructive pulmonary disease, unspecified; U09.9 Post COVID-19 condition, unspecified; I50.9 Heart failure, unspecified; I11.0 Hypertensive heart disease with heart failure; E78.5 Hyperlipidemia, unspecified; Z86.718 Personal history of other venous thrombosis and embolism; Z87.891 Personal history of nicotine dependence
CPT/HCPCS: 36415; 71046; 80053; 83690; 84484; 85025; 85610; 85730; 93005; 99284; A9270

== ENCOUNTER 2022-08-23 00:54 | Emergency (ER) | payer MEDICARE, MEDICAID, SELFPAY ==
[2022-08-23] VITALS (37 sets, daily range): BP systolic 104–176; BP diastolic 62–96; PULSE 91–114; RESP 18–30; TEMP 36.4; O2SAT 94–100
--- NOTE | ~2022-08-23 | XR_ITS ---
AP view of the pelvis and AP and lateral views of the right hip Clinical history: Pain Findings: No acute fracture or dislocation is seen. Osseous alignment is anatomic. Minimal degenerati ve change of both hip joints noted. Soft tissues are unremarkable. Impression: Minimal degenerative change of both hip joints. Reviewed, dictated and finalized at location . Impression: Minimal degenerative change of both hip joints.
--- NOTE | ~2022-08-23 | XR_ITS ---
Clinical Indication: Shortness of breath, COPD PA and lateral views of the chest: Comparison: 07/26/2022 Findings: There are probable subtle patchy groundglass opacities at the left lung base region. Possib le underlying COPD. Cardiomediastinal silhouette is within normal limits. Bones and soft tissues are unremarkable. Impression: Suspected subtle patchy groundglass opacities left lung base. Correlate for infectious process. Consi bryan CT for further evaluation as indicated. Suspected COPD. Reviewed, dictated and finalized at location [facility]. Impression: Suspected subtle patchy groundglass opacities left lung base. Correlate for inf ectious process. Consider CT for further evaluation as indicated. Suspected COPD.
--- NOTE | ~2022-08-23 | CT_ITS ---
Clinical Indication: Shortness of breath, Covid [address] Scan of the Chest with Contrast: Technique: Contiguous sections were acquired throughout the chest after intravenous administration of 100 cc of Omnipaque 350. Dose reduction technique was used on this scan by utilizing automated expos ure control and iterative reconstruction technique. The dose-length product (DLP) was 536.86 mGy-cm. COMPARISON: 07/15/2022 Findings: There is no evidence of any significant mediastinal, hilar or axillary lymphadenopathy. There is no f illing defect in the pulmonary arterial tree to suggest pulmonary embolus. There is no evidence of ao rtic dissection or aneurysm. There is no evidence of pleural or pericardial effusion. There is mild to moderate emphysema. The lungs are clear. No pulmonary nodules or infiltrates are not ed. Images through the upper abdomen reveal no abnormalities. Stable chronic bilateral rib fracture defor mities are unchanged. Impression: No evidence of pulmonary embolus, aortic dissection, or aortic aneurysm. Mild to moderate emphysema. Clear lungs. Reviewed, dictated and finalized at [facility]. Impression: No evidence of pulmonary embolus, aortic dissection, or aortic aneurysm. Mild to moderate emphysema. Clear lungs.
--- NOTE | 2022-08-23 01:03 | ECG_ITS ---
Measurements Intervals [place] Rate: 90 P: 55 [place]: 164 QRS: 45 QRSD: 112 T: 56 QT: 356 QTc: 437 Interpretive Statements SINUS RHYTHM POSSIBLE LEFT ATRIAL ENLARGEMENT INTRAVENTRICULAR CONDUCTION DELAY BASELINE ARTIFACT- I, II, III, AVR, AVL, AVF, V1-V2 BORDERLINE ECG COMPARED TO ECG 07/26/2022 10:48:10 INTRAVENTRICULAR CONDUCTION DELAY NOW PRESENT Electronically Signed On 08-23-2022 6:41:41 CDT by Junior Adkins D.O.
[2022-08-23 01:16] LABS: Basophils Absolute Auto 0.1 K/mm3 (0.0-0.1); Basophils Percent Auto 0.4 % (0.2-1.2); Eosinophils Absolute Auto 0.1 K/mm3 (0-0.3); Eosinophils Percent Auto 0.8 % (0-4.4); Hematocrit 35.5 % (42.0-52.0); Immature Granulocyte Absolute 0.05 K/mm3 (0.00-0.031); Immature Granulocyte Percent A 0.4 % (0-0.5); Lymphocytes Percent Auto 32.2 % (18.3-44.2); Mean Corpuscular HGB Conc 33.8 g/dl (32-36); Mean Corpuscular Hemoglobin 34.6 pg (26-34); Mean Corpuscular Volume 102.3 fl (80-100); Mean Platelet Volume 8.6 fl (7.4-10.4); Monocytes Absolute Auto 0.9 K/mm3 (0.1-0.6); Neutrophils Absolute Auto 6.9 K/mm3 (1.3-6.7); Neutrophils Percent Auto 58.2 % (45.5-73.1); Platelet Count Result 212 k/mm3 (150-375); Red Blood Count 3.47 M/mm3 (4.6-6.20); Red Cell Distribution Width 14.2 % (11.5-14.5); White Blood Count 11.8 K/mm3 (4.5-10.0)
--- NOTE | 2022-08-23 01:20 | ED.SOB ---
HPI - SOB/Dyspnea General Chief Complaint: Shortness of Breath/Dyspnea Stated Complaint: sob Time Seen by Provider: 08/23/22 01:06 History of Present Illness HPI Narrative: Patient is a 62-year-old male with a history of COPD, CHF presenting with shortness of breath. Patient states that for the last week he has been increasingly short of breath. States that he has had some intermittent chest pain as well. States that he has not tried his inhaler today. Denies fevers or chills, leg swelling, headache, numbness or weakness, abdominal pain, nausea or vomiting, diarrhea, dysuria. Related Data Home Medications Medication Instructions Recorded Confirmed citalopram 20 mg tablet 20 mg PO DAILY 06/18/22 06/18/22 cyclobenzaprine 10 mg tablet 10 mg PRN 06/18/22 06/18/22 famotidine 40 mg tablet 10 mg PO HS 06/18/22 07/14/22 fenofibrate micronized 200 mg 200 mg PO DAILY 06/18/22 06/18/22 capsule fexofenadine 180 mg tablet 180 mg PO DAILY 06/18/22 06/18/22 fluticasone 250 mcg-salmeterol 50 1 inh inhalation BID 06/18/22 06/18/22 mcg/dose blistr powdr for inhalation (Advair Diskus) folic acid 1 mg tablet 1 mg PO DAILY 06/18/22 06/18/22 furosemide 80 mg tablet 80 mg PO DAILY 06/18/22 07/14/22 guaifenesin 600 mg tablet, 600 mg PO BID 06/18/22 06/18/22 extended release 12 hr (Mucus Relief ER) hydroxyzine HCl 10 mg tablet 10 mg PO TID 06/18/22 06/18/22 losartan 50 mg tablet 25 mg PO BID 06/18/22 07/14/22 multivitamin-iron 9 mg-folic acid 1 tablet PO DAILY 06/18/22 07/14/22 400 mcg-calcium and minerals tablet (Thera-M) pantoprazole 40 mg tablet,delayed 40 mg PO DAILY 06/18/22 07/14/22 release potassium chloride 20 mEq 20 meq PO DAILY 06/18/22 06/18/22 tablet,extended release propranolol 20 mg tablet 20 mg PO DAILY 06/18/22 07/14/22 simvastatin 40 mg tablet 40 mg PO HS 06/18/22 07/14/22 thiamine HCl (vitamin B1) 100 mg 100 mg PO DAILY 06/18/22 07/14/22 tablet tiotropium bromide 2.5 2 inh inhalation DAILY 06/18/22 07/14/22 mcg/actuation mist for inhalation (Spiriva Respimat) trazodone 100 mg tablet 100 mg PO HS 06/18/22 07/14/22 vitamin B comp no.3-folic acid 1 1 tablet PO DAILY 06/18/22 06/18/22 mg-vit C 60 mg-biotin 300 mcg tablet (Nirali-May Rx) Allergies Allergy/AdvReac Type Severity Reaction Status Date / Time No Known Allergies Allergy Mild Verified 08/23/22 01:06 Review of Systems Review of Systems: All systems reviewed & are unremarkable except as noted in HPI and below PMFSH Past Medical History Medical History Chronic obstructive pulmonary disease Deep venous thrombosis Heart failure of unknown type Hyperlipidemia Hypertension Tobacco abuse Surgical History Surgical History History of dental surgery Family History Family History Other Diabetes mellitus Family history of arthritis Family history of mental disorder Family history of seizure disorder Hypertension Social History Social History Social History: Surrogate medical decision maker: None. Code status: Full code. Smoking packs per day: 1 Smoking cigarettes per day: 20.0 Smoking status: Former smoker Tobacco type: cigarettes Smoking end date: 07/09/22 Alcohol intake: current Alcohol use details: Social alcohol in moderation. Substance use: current Substance use type: marijuana Other substance usage details: 1 5th of vodka per week Lack of Transportation: No Lack of Food: Never True Current Housing: I Have Housing Concerned About Future Housing: No Difficulty Paying Gas/Electric Bills: No Difficulty Paying for Meds: No Currently Unemployed: No Education: Bachelor's Degree Difficulty w/ Childcare or Family Care: No Additional living arrangements com
[2022-08-23] MEDS: IPRATROPIUM BR 0.02% INH SOLN 0.5 MG/2.5 ML VIAL (01:21)
[2022-08-23] MEDS: LEVALBUTEROL NEB 1.25 MG/3 ML (01:21)
[2022-08-23 01:26] LABS: Alanine Aminotransferase 45 U/L (6-50); Albumin Level 3.9 g/dL (3.5-5.1); Alkaline Phosphatase 130 U/L (38-126); Anion Gap 10 mmol/L (8-16); Aspartate Amino Transferase 49 U/L (17-59); Bilirubin,Total 0.8 mg/dL (0.2-1.3); Blood Urea Nitrogen 9 mg/dL (9-20); Carbon Dioxide 26 mmol/L (22-30); Chloride 95 mmol/L (98-107); Estimated CRCL calculation 84 ml/min; Estimated Glomerular Filt Rate > 60; Glucose 78 mg/dL (65-110); Potassium 3.2 mmol/L (3.4-5.0); Sodium 131 mmol/L (137-145)
[2022-08-23] MEDS: LEVALBUTEROL NEB 1.25 MG/3 ML 10 MG INHALATION (01:26)
[2022-08-23] MEDS: methylPREDNISolone SOD SUCC 125 MG VIAL IV PUSH (01:36)
[2022-08-23 01:39] LABS: Alveolar/Arterial O2 Gradient 225.7 mmHg; Base Excess ABG -1.1 mEq/l (+/-2.0); Fractional Inspired Oxygen 50 %; HCO3 ABG 22.3 mEq/l (22.0-26.0); Oxygen Content ABG 15.8 %vol (16.0-22.0); Oxygen Saturation ABG 97.5 % (95.0-100.0); Oxyhemoglobin 90.9 % THb (90.0-100.0); PCO2 ABG 33.2 mmHg (35.0-45.0); PO2 ABG 93.5 mmHg (80.0-100.0); PO2 FiO2 Ratio Arterial Blood 1.87 %; Total Hemoglobin 12.3 g/dL (12.0-18.0); pH ABG 7.446 (7.350-7.450)
[2022-08-23 01:40] LABS: CPAP 10 cmH2O; Device CPAP; Site Drawn RIGHT BRACHIAL
[2022-08-23 02:35] LABS: Magnesium 1.7 mg/dL (1.6-2.3)
[2022-08-23 02:38] LABS: Prothrombin Time 13.2 Seconds (11.1-14.7)
[2022-08-23 02:39] LABS: Partial Thromboplastin Time 27.3 SECONDS (22.3-36.8)
[2022-08-23 02:45] LABS: NT Pro B Type Natriuretic Pept 1520 pg/mL (19.9-100); Troponin I 0.025 ng/mL (0.000-0.034)
[2022-08-23] MEDS: fentaNYL CITRATE INJ (*CRX) 100 MCG/2 ML VIAL IV PUSH (03:17)
[2022-08-23 03:22] LABS: Ethanol 339 mg/dL (<10)
[2022-08-23 03:57] LABS: Influenza A QL RT-PCR Negative (Negative); Influenza B QL RT-PCR Negative (Negative); RSV RNA, RT-PCR Negative (Negative); SARS-CoV-2 RNA PCR Positive (Negative)
--- NOTE | 2022-08-23 04:13 | PC.NURSE ---
Patient being trialed of oxygen at this time per NANY Jasso. Patient taken to CT via stretcher at this time.
[2022-08-23] MEDS: SODIUM CHLORIDE 0.9% IV 1,000 ML 999 ML IV CONT ×2 (04:29→04:57)
[2022-08-23] MEDS: POTASSIUM CHLORIDE 20 MEQ TABLET 40 MEQ PO (04:56)
[2022-08-23] MEDS: LEVALBUTEROL NEB 1.25 MG/3 ML 2.5 MG INHALATION (05:52)
[2022-08-23] MEDS: IPRATROPIUM BR 0.02% INH SOLN 0.5 MG/2.5 ML VIAL INHALATION (05:52)
[2022-08-23 07:54] LABS: Troponin I 0.015 ng/mL (0.000-0.034)
== END 2022-08-23 08:32 | disposition home or self-care (01) ==
PROVIDERS: Emergency Provider Emergency Medicine; PCP Hospitalist
DX: U07.1 COVID-19 (principal); J44.9 Chronic obstructive pulmonary disease, unspecified; I11.0 Hypertensive heart disease with heart failure; I50.9 Heart failure, unspecified; E78.5 Hyperlipidemia, unspecified; Z86.718 Personal history of other venous thrombosis and embolism; Z79.51 Long term (current) use of inhaled steroids; Z87.891 Personal history of nicotine dependence; F12.90 Cannabis use, unspecified, uncomplicated; Z79.899 Other long term (current) drug therapy
CPT/HCPCS: 36415; 36600; 71046; 71275; 73502; 80053; 80307; 82805; 83735; 83880; 84484; 85025; 85610; 85730; 87637; 93005; 94640; 96361; 96365; 96375; 99284; A9270; J0456; J2930; J3010; J7030; Q9967

== ENCOUNTER 2022-08-27 03:36 | Inpatient (IN) | payer MEDICARE, MEDICAID, SELFPAY ==
[2022-08-27] VITALS (32 sets, daily range): BP systolic 132–160; BP diastolic 83–101; PULSE 89–134; RESP 16–27; TEMP 36.1–36.9; O2SAT 92–100; BMI 29.7
--- NOTE | ~2022-08-27 | XR_ITS ---
EXAMINATION: XR chest 1V portable DATE: 08/30/2022 05:59 INDICATION: COVID-19 pneumonia. TECHNIQUE: A single frontal view of the chest was obtained. COMPARISON: Chest 2 views 08/27/2022, chest CT 08/23/2022 FINDINGS: There are lucencies in the lungs, consistent with emphysema. There is mild atelectasis in t he lower lung zones. There is mild scarring at right lung apex. No pleural effusion or pneumothorax. The heart size is normal. IMPRESSION: 1. Emphysema. 2. Mild atelectasis in the lower lung zones. Reviewed, dictated and finalized at location A.
--- NOTE | ~2022-08-27 | XR_ITS ---
Portable chest x-ray Comparison: 08/30/2022 Clinical History: Covid 19 Findings: COPD pattern of the lungs present. No consolidation or pleural effusion evident. Cardiome diastinal silhouette is stable. Bones and soft tissues are unremarkable. Impression: COPD pattern. Reviewed, dictated and finalized at location . Impression: COPD pattern.
--- NOTE | ~2022-08-27 | XR_ITS ---
Clinical Indication: Shortness of breath PA and lateral views of the chest: Comparison: 08/23/2022 Findings: There is mild emphysema pattern of the lungs. Density of the left lung base is probably rel ated to fracture of the anterior left rib based on CT dated 08/23/2022. No pleural effusion or pneumoth orax.. Cardiomediastinal silhouette is within normal limits. Bones and soft tissues are unremarkable . Impression: Density at the left lung base is unchanged, probably related to anterior left rib fracture based on r ecent CT. Emphysema. Reviewed, dictated and finalized at location . Impression: Density at the left lung base is unchanged, probably related to anterior left r ib fracture based on recent CT. Emphysema.
--- NOTE | 2022-08-27 03:30 | ECG_ITS ---
Measurements Intervals [place] Rate: 112 P: 38 [place]: 165 QRS: 14 QRSD: 104 T: 60 QT: 325 QTc: 445 Interpretive Statements SINUS TACHYCARDIA BASELINE ARTIFACT- I, III, AVR, AVL, AVF, V1-V6 ABNORMAL ECG COMPARED TO ECG 08/23/2022 01:01:16 SINUS TACHYCARDIA NOW PRESENT Electronically Signed On 08-27-2022 6:51:12 CDT by Junior Adkins D.O.
[2022-08-27 03:38] LABS: Basophils Percent Auto 0.3 % (0.2-1.2); Eosinophils Absolute Auto 0.1 K/mm3 (0-0.3); Eosinophils Percent Auto 0.8 % (0-4.4); Hematocrit 36.7 % (42.0-52.0); Hemoglobin 12.5 g/dL (14.0-18.0); Immature Granulocyte Absolute 0.07 K/mm3 (0.00-0.031); Immature Granulocyte Percent A 0.7 % (0-0.5); Lymphocytes Absolute Auto 3.69 K/mm3 (0.9-3.2); Lymphocytes Percent Auto 36.9 % (18.3-44.2); Mean Corpuscular HGB Conc 34.1 g/dl (32-36); Mean Corpuscular Hemoglobin 34.4 pg (26-34); Mean Corpuscular Volume 101.1 fl (80-100); Mean Platelet Volume 8.7 fl (7.4-10.4); Monocytes Absolute Auto 1.1 K/mm3 (0.1-0.6); Monocytes Percent Auto 11.3 % (2.6-8.5); Platelet Count Result 228 k/mm3 (150-375); Red Blood Count 3.63 M/mm3 (4.6-6.20); Red Cell Distribution Width 13.9 % (11.5-14.5)
[2022-08-27 04:03] LABS: Alanine Aminotransferase 45 U/L (6-50); Albumin Level 3.6 g/dL (3.5-5.1); Alkaline Phosphatase 157 U/L (38-126); Anion Gap 7 mmol/L (8-16); Aspartate Amino Transferase 51 U/L (17-59); Bilirubin,Total 0.9 mg/dL (0.2-1.3); Blood Urea Nitrogen 11 mg/dL (9-20); Calcium 7.9 mg/dL (8.4-10.2); Carbon Dioxide 27 mmol/L (22-30); Chloride 96 mmol/L (98-107); Estimated CRCL calculation 73 ml/min; Estimated Glomerular Filt Rate > 60; Glucose 87 mg/dL (65-110); Potassium 3.2 mmol/L (3.4-5.0); Sodium 130 mmol/L (137-145)
--- NOTE | 2022-08-27 04:09 | ED.SOB ---
HPI - SOB/Dyspnea General Chief Complaint: Shortness of Breath/Dyspnea Stated Complaint: sob History of Present Illness HPI Narrative: Patient is a 62-year-old male with a history of COPD, CHF, hyperlipidemia, hypertension, GERD presenting with shortness of breath. Patient states that for the last day he has been increasingly short of breath. States that he ran out of his and inhaler couple days ago. States that he has also had some left-sided chest pain. States that he has chronic leg swelling but it has seemed worse over the last couple of days. Denies headache, numbness or weakness, abdominal pain, nausea or vomiting, diarrhea, dysuria. Related Data Home Medications Medication Instructions Recorded Confirmed citalopram 20 mg tablet 20 mg PO DAILY 06/18/22 08/27/22 cyclobenzaprine 10 mg tablet 10 mg PRN 06/18/22 08/27/22 famotidine 40 mg tablet 10 mg PO HS 06/18/22 08/27/22 fluticasone 250 mcg-salmeterol 50 1 inh inhalation BID 06/18/22 08/27/22 mcg/dose blistr powdr for inhalation (Advair Diskus) folic acid 1 mg tablet 1 mg PO DAILY 06/18/22 08/27/22 furosemide 80 mg tablet 80 mg PO DAILY 06/18/22 08/27/22 losartan 50 mg tablet 25 mg PO BID 06/18/22 08/27/22 multivitamin-iron 9 mg-folic acid 1 tablet PO DAILY 06/18/22 08/27/22 400 mcg-calcium and minerals tablet (Thera-M) potassium chloride 20 mEq 20 meq PO DAILY 06/18/22 08/27/22 tablet,extended release propranolol 20 mg tablet 20 mg PO DAILY 06/18/22 08/27/22 simvastatin 40 mg tablet 40 mg PO HS 06/18/22 08/27/22 thiamine HCl (vitamin B1) 100 mg 100 mg PO DAILY 06/18/22 08/27/22 tablet tiotropium bromide 2.5 2 inh inhalation DAILY 06/18/22 08/27/22 mcg/actuation mist for inhalation (Spiriva Respimat) trazodone 100 mg tablet 100 mg PO HS 06/18/22 08/27/22 omeprazole 20 mg capsule,delayed 20 mg PO DAILY 08/27/22 08/27/22 release Allergies Allergy/AdvReac Type Severity Reaction Status Date / Time No Known Allergies Allergy Mild Verified 08/27/22 06:34 Review of Systems Review of Systems: All systems reviewed & are unremarkable except as noted in HPI and below PMFSH Past Medical History Medical History (Updated 08/30/22 @ 17:16 by Brooke Bernal MD) Chronic obstructive pulmonary disease Deep venous thrombosis Heart failure of unknown type Hyperlipidemia Hypertension Tobacco abuse Surgical History Surgical History History of dental surgery Family History Family History Other Diabetes mellitus Family history of arthritis Family history of mental disorder Family history of seizure disorder Hypertension Social History Social History Social History: Surrogate medical decision maker: None. Code status: Full code. Smoking packs per day: 0.4 Smoking cigarettes per day: 8.0 Years smoked: 40 Smoking pack-years: 16.00 Smoking status: Current every day smoker Tobacco type: cigarettes Smoking end date: 07/09/22 Alcohol intake: current Drinks per week: 9 Alcohol use details: Social alcohol in moderation. Substance use: never Substance use type: marijuana Other substance usage details: 1 5th of vodka per week Lack of Transportation: No Lack of Food: Never True Current Housing: I Have Housing Concerned About Future Housing: No Difficulty Paying Gas/Electric Bills: No Difficulty Paying for Meds: No Currently Unemployed: No Education: High School Diploma/GED Difficulty w/ Childcare or Family Care: No Additional living arrangements comments: Lives in [place]. Additional occupation/education comments: Disabled. Spiritual care concerns: No Exam Narrative: GENERAL: Chronically ill-appearing, no acute distress, disheveled HEAD: Normocephalic, atraumatic. EYES: PERRLA and EOMI. ENT: Nares cl
[2022-08-27] MEDS: methylPREDNISolone SOD SUCC 125 MG VIAL IV PUSH (04:21)
[2022-08-27] MEDS: POTASSIUM CHLORIDE 20 MEQ TABLET 40 MEQ PO (04:22)
[2022-08-27] MEDS: IPRATROPIUM BR 0.02% INH SOLN 0.5 MG/2.5 ML VIAL INHALATION (04:24)
[2022-08-27] MEDS: LEVALBUTEROL NEB 1.25 MG/3 ML 2.5 MG INHALATION (04:24)
[2022-08-27 04:41] LABS: Lactic Acid Reflex 2.6 mmol/L (0.7-2.0); Prothrombin Time 13.7 Seconds (11.1-14.7)
[2022-08-27 04:42] LABS: Lipase 84 U/L (23-300); Magnesium 1.6 mg/dL (1.6-2.3)
[2022-08-27 04:50] LABS: NT Pro B Type Natriuretic Pept 4000 pg/mL (19.9-100)
[2022-08-27] MEDS: FAMOTIDINE 20 MG TABLET PO (04:53)
[2022-08-27 05:09] LABS: Troponin I 0.038 ng/mL (0.000-0.034)
[2022-08-27 05:10] LABS: Influenza A QL RT-PCR Negative (Negative); Influenza B QL RT-PCR Negative (Negative); SARS-CoV-2 RNA PCR Positive (Negative)
[2022-08-27] MEDS: ASPIRIN 81 MG CHEWABLE TABLET 324 MG PO (05:22)
--- NOTE | 2022-08-27 06:28 | ADMGEN ---
This patient, Rafal Childers, was admitted to IMU Room 213-01. Patient/family oriented to hospital policies and general routines including ID bracelet, bed and alarms, visiting hours, pain management, procedures, bathroom and other care routines, personal items, smoking policy, room service/diet, and visiting hours. Information on how to activate the Rapid Response Team has been discussed. Patient/Family are encouraged to report perceived risks to care and to ask questions if they do not understand what they are told or what they should do.
[2022-08-27 07:27] LABS: Reflex Lactic Acid Yes or No Add Lactic
[2022-08-27 08:05] LABS: Lactic Acid 1.9 mmol/L (0.7-2.0)
[2022-08-27 08:18] LABS: Troponin I 0.027 ng/mL (0.000-0.034)
--- NOTE | 2022-08-27 09:26 | PM.IMHP ---
H&P: HPI History of Present Illness Date/Time: 08/27/22 09:26 Chief Complaint: Shortness of breath Narrative: Patient is a 62-year-old male with history of emphysema, diastolic heart failure, hyperlipidemia, hypertension, tobacco dependence, and heavy alcohol use. He presented to the emergency department for evaluation of worsening shortness of breath. Patient was seen in the emergency department on 08/23/2022 where he tested positive for COVID-19. At that time ED documentation indicate patient required BiPAP with FiO2 50% but was able to be weaned off of oxygen and was discharged home. Patient does not report receiving any prescriptions following discharge and was unaware he tested positive for COVID. He states in the last 24-48 hours his symptoms progressively worsened. He has dyspnea at rest and with exertion, orthopnea, chronic unchanged pedal and lower extremity edema, left-sided nonradiating chest pain worse with cough and breathing. He reports his cough is productive with thick vizcarra sputum. He denies known fever, chills, night sweats, abdominal pain, nausea, vomiting, dysphagia, constipation or dysuria. He had an episode of loose stool prior to admission. Additionally he reports he ran out of albuterol, Advair, and Spiriva inhalers several days ago. He denies other medication changes. No recent travel. He states since March 2022 when he last had COVID 19 he has had persistent shortness of breath with activity and has been noted to be hospitalized May and June of this year for COPD exacerbation and CHF exacerbation and was seen in the emergency department in July. He reports taking antibiotics in June after his last admission. In the emergency department, vitals showed temp 98.4?, heart rate 112, respirations 24, BP 140/88 SpO2 less than 90% on room air and low 90s on 2 L nasal cannula. Chest x-ray showed a density to the left lung base unchanged from 08/23/2022 and emphysema. EKG showed sinus tachycardia at 112 beats per minute without ischemic changes. Lab work showed WBC 10, H&H 12.5/36, sodium 130, potassium 3.2, troponin 0.038, BNP 4000, lactic acid 2.6 and he again tested positive for COVID-19 PCR. He was negative for flu a and B and RSV. He was given aspirin 325 mg p.o. x1, Atrovent and Xopenex nebs x1, 40 mEQ potassium chloride p.o. and Solu-Medrol 125 mg IV x1. Patient will be admitted to IMU for further monitoring and management of acute COPD exacerbation and COVID-19 pneumonia. Review of Systems Review of Systems: All systems reviewed & are unremarkable except as noted in HPI and below PMFSH Past Medical History Medical History (Updated 08/27/22 @ 19:13 by Christina Duncan APRN) Chronic obstructive pulmonary disease Deep venous thrombosis Heart failure of unknown type Hyperlipidemia Hypertension Tobacco abuse Surgical History Surgical History History of dental surgery Family History Family History Other Diabetes mellitus Family history of arthritis Family history of mental disorder Family history of seizure disorder Hypertension Social History Social History Social History: Surrogate medical decision maker: None. Code status: Full code. Smoking packs per day: 0.4 Smoking cigarettes per day: 8.0 Years smoked: 40 Smoking pack-years: 16.00 Smoking status: Current every day smoker Tobacco type: cigarettes Smoking end date: 07/09/22 Alcohol intake: current Drinks per week: 9 Alcohol use details: Social alcohol in moderation. Substance use: never Substance use type: marijuana Other substance usage details: 1 5th of vodka per week Lack of Transportation: No Lack of Food: Never True Current Housing: I Have Housing Concerned About Future Housing: No Difficulty Paying Gas/Electr
[2022-08-27] MEDS: FOLIC ACID 1 MG TABLET PO (10:19)
[2022-08-27] MEDS: PANTOPRAZOLE 40 MG TABLET PO (10:20)
[2022-08-27] MEDS: REMDESIVIR 200 MG/NS 250 ML 200 MG/250 ML BAG 250 MG IVPB (10:20)
[2022-08-27] MEDS: THIAMINE HCL 100 MG TABLET PO (10:20)
[2022-08-27] MEDS: CITALOPRAM HYDROBROMIDE 20 MG TABLET PO (10:20)
[2022-08-27] MEDS: ALBUTEROL SULFATE (*SP) AEROSOL 1 PUFF 2 PUFF INHALATION (11:23)
[2022-08-27 11:28] LABS: Troponin I 0.019 ng/mL (0.000-0.034)
[2022-08-27 11:29] LABS: Alveolar/Arterial O2 Gradient 53.3 mmHg; Base Excess ABG -0.5 mEq/l (+/-2.0); Fractional Inspired Oxygen 28 %; HCO3 ABG 23.1 mEq/l (22.0-26.0); Methemoglobin ABG 0.3 %THb (0-1.5); Oxygen Content ABG 17.7 %vol (16.0-22.0); Oxyhemoglobin 96.1 % THb (90.0-100.0); PCO2 ABG 34.7 mmHg (35.0-45.0); PO2 ABG 105.4 mmHg (80.0-100.0); PO2 FiO2 Ratio Arterial Blood 3.76 %; Reduced Hemoglobin 2.6 %THb (0-5.0); pH ABG 7.442 (7.350-7.450)
[2022-08-27 11:30] LABS: Device NASAL CANNULA; Modified Allen's Test Pass; Site Drawn RIGHT RADIAL
[2022-08-27] MEDS: MAGNESIUM SULFATE 3GM/D5W100ML 3 GM/100 ML BAG IVPB (12:01)
[2022-08-27 12:14] LABS: CRP 1.1 mg/dL (<1.0)
--- NOTE | 2022-08-27 13:03 | PM.CNPUL ---
Assessment and Plan Assessment and plan (1) Pneumonia due to COVID-19 virus: Code(s): U07.1 - COVID-19; J12.82 - Pneumonia due to coronavirus disease 2018 Status: Acute Assessment and Plan: Patient tested positive for COVID-19 on 08/23/2022 and Was discharged from the emergency room on room air. Patient progressed and was seen in the emergency room on 08/27/2022 requiring 2 L nasal cannula oxygen. Started on remdesivir, dexamethasone 6 mg Q day on 08/27/22. Emperically started on vancomycin, cefepime and azithromycin. Remdesivir for 10 days unless he should recover and tolerate room air with rest, ambulation and while sleeping. - Dexamethasone 6 mg IV for 10 days - Continuous pulse oximetry - Avoid any fluid overload. - emperic vancomycin, cefepime and azithromycin for possible HCAP. Would deescalate if patient remains clinically stable and cultures are negative at 48 to 72 hours. - I will place the patient on levalbuterol (tachycardia now) and incruse Ellipta. - Negative influenza swab. currently the patient is on 2 L nasal cannula with a blood gas of 7.44/35/105 and sats 96%. Patient should have a chest x-ray on the day of discharge to serve as a new baseline. discussed with Christina Duncan, will sign off, call with any questions. (2) Respiratory failure with hypoxia: Code(s): J96.91 - Respiratory failure, unspecified with hypoxia Status: Acute Assessment and Plan: Etiology of hypoxic respiratory failure is likely COVID pneumonia. Patient also has an elevated BNP at 4000 and will be given a dose of IV Lasix. 08/27 03:15 2 L NC sats 97% 08/27 03:30 3 L NC sats 93% 08/27 11:15 2 L NC sats 96% currently the patient is on 2 L nasal cannula with a blood gas of 7.44/35/105 and saturations 96%. There is no evidence of hypercarbic respiratory failure. Keep saturations are 90-94% with nasal cannula up to 15 L, if fails then Airvo high flow nasal cannula and add either tocilizumab or baricitinib, if fails then BiPAP, if fails then intubation. Patient should have home O2 assessment an overnight oximetry prior to discharge to determine his oxygen needs. Patient should have chest x-ray prior to discharge to serve as a new baseline. (3) Chronic obstructive pulmonary disease: Code(s): J44.9 - Chronic obstructive pulmonary disease, unspecified Status: Acute Assessment and Plan: Patient with a 40 pack year history tobacco use and currently smoking half a pack a day up until 2 days ago. He has moderate centrilobular emphysema with an apical predominance. I have no PFTs. The patient tells me he is maintained on Advair and Spiriva Respimat. I do not believe he is having a COPD exacerbation at this time. He is tachycardic at 1:25 a.m. right now and he has been switched to leave albuterol 2 puffs Q 6 hours. Continue increased Ellipta 62.5 at at 1 puff q.day. No need for inhaled steroids while he is receiving Decadron 6 mg IV q.day. On discharge, continue Advair 250/50 at 1 puff twice a day and incruse Ellipta inhalers. The patient should follow up in the Pulmonary Clinic 3-4 weeks after discharge. 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 History of Present Illness History of Present Illness Consult date: 08/27/22 Chief complaint: Elevated Troponin Narrative: 08/27/2022: This is a new pulmonary consult for COPD and COVID pneumonia. 62-year-old with a history of COPD with hypoxemic respiratory failure requiring 2 L nasal cannula oxygen, COVID 03/2020 with continued weakness, SOB, wheezing likely reflecting long COVID, CHF, hypertension, GERD presented to the emergency department on 08/27/2022 with shortness of breath. 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 He states he has daily wheezing since then, shortness of breath, dyspnea on exertion, fatigue, muscle weakness and unsteady gait. He had to quit his
--- NOTE | 2022-08-27 13:08 | PC.NURSE ---
pt having tachycardia, 120-130bpm. pt denies any symptoms at this time. Christina Duncan, WHITLEY notified of condition. Per WAITER/WAITRESS SECOND CLASS, D/C albuterol treatments, and order xopenex. orders placed, see MAR.
[2022-08-27] MEDS: CEFEPIME 2 GM/NS 50 ML 2 GM/50 ML BAG IVPB ×2 (13:25→22:22)
[2022-08-27] MEDS: LEVALBUTEROL HFA (*SP) 15 GM INHALER 2 PUFF INHALATION ×2 (14:27→20:38)
[2022-08-27] MEDS: METOPROLOL TARTRATE 25 MG TABLET PO ×2 (15:13→22:24)
[2022-08-27] MEDS: LOSARTAN POTASSIUM 25 MG TABLET PO (16:53)
[2022-08-27 17:24] LABS: Procalcitonin 0.2 ng/mL
[2022-08-27] MEDS: FAMOTIDINE 10 MG TABLET PO (22:23)
[2022-08-27] MEDS: guaiFENesin 12 HR 600 MG TABCR PO (22:23)
[2022-08-27] MEDS: SIMVASTATIN 20 MG TABLET 40 MG PO (22:24)
[2022-08-27] MEDS: traZODone HCL 50 MG TABLET 100 MG PO (22:24)
[2022-08-28] VITALS (17 sets, daily range): BP systolic 119–143; BP diastolic 65–89; PULSE 69–112; RESP 18–20; TEMP 36.2–36.8; O2SAT 90–98
[2022-08-28] MEDS: LEVALBUTEROL HFA (*SP) 15 GM INHALER 2 PUFF INHALATION ×4 (03:02→20:50)
[2022-08-28 03:55] LABS: Basophils Percent Auto 0.2 % (0.2-1.2); Hematocrit 30.6 % (42.0-52.0); Hemoglobin 10.4 g/dL (14.0-18.0); Immature Granulocyte Absolute 0.09 K/mm3 (0.00-0.031); Lymphocytes Absolute Auto 1.93 K/mm3 (0.9-3.2); Lymphocytes Percent Auto 21.7 % (18.3-44.2); Mean Corpuscular Hemoglobin 34.9 pg (26-34); Mean Corpuscular Volume 102.7 fl (80-100); Mean Platelet Volume 8.7 fl (7.4-10.4); Monocytes Absolute Auto 1.2 K/mm3 (0.1-0.6); Monocytes Percent Auto 13.4 % (2.6-8.5); Neutrophils Absolute Auto 5.7 K/mm3 (1.3-6.7); Neutrophils Percent Auto 63.7 % (45.5-73.1); Platelet Count Result 219 k/mm3 (150-375); Red Blood Count 2.98 M/mm3 (4.6-6.20); Red Cell Distribution Width 14.1 % (11.5-14.5); White Blood Count 8.9 K/mm3 (4.5-10.0)
[2022-08-28 04:04] LABS: Prothrombin Time 13.4 Seconds (11.1-14.7)
[2022-08-28 04:40] LABS: Chloride 99 mmol/L (98-107)
[2022-08-28 04:45] LABS: Alanine Aminotransferase 36 U/L (6-50); Albumin Level 2.9 g/dL (3.5-5.1); Alkaline Phosphatase 134 U/L (38-126); Anion Gap 0 mmol/L (8-16); Aspartate Amino Transferase 53 U/L (17-59); Bilirubin,Total 0.6 mg/dL (0.2-1.3); Blood Urea Nitrogen 13 mg/dL (9-20); Calcium 7.8 mg/dL (8.4-10.2); Carbon Dioxide 30 mmol/L (22-30); Estimated CRCL calculation 85 ml/min; Estimated Glomerular Filt Rate > 60; Glucose 105 mg/dL (65-110); Potassium 3.5 mmol/L (3.4-5.0); Sodium 129 mmol/L (137-145)
[2022-08-28] MEDS: CEFEPIME 2 GM/NS 50 ML 2 GM/50 ML BAG IVPB ×3 (04:58→20:28)
[2022-08-28 08:07] LABS: Glucose Point of Care 150 mg/dl (65-105)
[2022-08-28] MEDS: ENOXAPARIN 40 MG/0.4 ML SYRINGE SUB-Q (08:32)
[2022-08-28] MEDS: POTASSIUM CHLORIDE 20 MEQ TABLET.ER 40 MEQ PO (08:32)
[2022-08-28] MEDS: FUROSEMIDE INJ 40 MG/4 ML VIAL IV PUSH (08:32)
[2022-08-28] MEDS: FOLIC ACID 1 MG TABLET PO (08:33)
[2022-08-28] MEDS: LOSARTAN POTASSIUM 25 MG TABLET PO ×2 (08:33→16:40)
[2022-08-28] MEDS: THIAMINE HCL 100 MG TABLET PO (08:33)
[2022-08-28] MEDS: guaiFENesin 12 HR 600 MG TABCR PO ×2 (08:33→20:28)
[2022-08-28] MEDS: METOPROLOL TARTRATE 25 MG TABLET PO ×2 (08:33→21:19)
[2022-08-28] MEDS: CITALOPRAM HYDROBROMIDE 20 MG TABLET PO (08:33)
[2022-08-28] MEDS: PANTOPRAZOLE 40 MG TABLET PO (08:33)
--- NOTE | 2022-08-28 09:27 | PM.IMPN ---
Progress Note: A&P Assessment and Plan (1) COVID-19: Code(s): U07.1 - COVID-19 Status: Acute Assessment and Plan: Patient tested positive for COVID-19 on 08/23/22. Placed in COVID specific isolation. Patient is requiring 2 L supplemental oxygen with increasing shortness of breath and has multiple comorbidities placing him at risk for severe infection. Continue remdesivir IV loading dose then 100 mg daily (day 2). Continue dexamethasone 6 mg IV daily (day 2). Continue MDI Q 6 hours-albuterol changed to Xopenex due to tachycardia. Incruse Ellipta daily continued as Atrovent MDI is unavailable currently. Lovenox for DVT prophylaxis (2) COPD exacerbation: Code(s): J44.1 - Chronic obstructive pulmonary disease with (acute) exacerbation Status: Acute Assessment and Plan: Continue management for COVID-19 as above. Patient does have sputum color changes and therefore will initiate empiric antibiotics. Patient has been treated with Levaquin and cefdinir within the past 3 months. Continue broad-spectrum antibiotics-IV vancomycin with pharmacy to dose, IV cefepime Pseudomonas dose, and IV azithromycin for atypical coverage, started 08/27/22. Will deescalate antibiotics in the next 24-48 hours pending culture results. Blood cultures negative to date. procalcitonin 0.2, CRP 1.1. Pulmonology was consulted and appreciate recommendations. (3) Respiratory failure with hypoxia: Qualifiers: Chronicity: acute Qualified Code(s): J96.01 - Acute respiratory failure with hypoxia Code(s): J96.91 - Respiratory failure, unspecified with hypoxia Status: Acute Assessment and Plan: Secondary to COVID19 and acute COPD exacerbation- continue management as above. May have an underlying component of acute exacerbation of diastolic CHF given BNP 4000 (previous admission was 1490 and 1520 on 08/23/22)- diuresed with Lasix 40 mg IV daily x48 hours with improvement. CTA chest completed 08/23/22 and negative for PE, given this acute PE contributing to hypoxia less likely. Continue supplemental O2 and wean as tolerated to keep spO2 91-94%. He will need home O2 evaluation prior to discharge.? (4) Acute congestive heart failure: Qualifiers: Heart failure type: diastolic Qualified Code(s): I50.31 - Acute diastolic (congestive) heart failure Code(s): I50.9 - Heart failure, unspecified Status: Acute Assessment and Plan: Acute exacerbation of chronic diastolic CHF. Echocardiogram from 07/15/22 showed EF 60% with mild valve disease, grade 1 diastolic dysfunction. H2FPEF score 45.7% HFpEF. BNP 4000. Patient has panlobar emphysema and pulmonary edema may not be easily detected on imaging. Diuresed with Lasix 40 mg IV daily x48 hours with improvement in respiratory status and LE edema. Sodium dropped 129 today. Will change to oral furosemide and adjust as needed to obtain euvolemia supplement potassium daily daily weights and monitor strict I's and O's. Continue beta-rony and ARB. (5) Hypokalemia: Code(s): E87.6 - Hypokalemia Status: Acute Assessment and Plan: K3.1. Patient is on chronic loop diuretics. Given 40 mEQ PO in ED. Continue 40 mEQ PO daily with diuretics. Daily BMP. (6) Hyponatremia: Code(s): E87.1 - Hypo-osmolality and hyponatremia Status: Acute Assessment and Plan: Sodium 130, glucose is not elevated. Given elevated BNP and lower extremity edema this is likely secondary to hypervolemia. Will continue diuretics and trend sodium. (7) Tachycardia: Code(s): R00.0 - Tachycardia, unspecified Status: Resolved Assessment and Plan: HR 110-130s. EKG and telemetry show sinus tachycardia. He c/o pleuritic chest pain and is requiring supplemental O2. Lactic acid 2.6 on admission, but decreased to 1.9 off antibiotics. Sepsis may be contributing- continue antibiotics. May be secondary to pne
[2022-08-28] MEDS: UMECLIDINIUM BROMIDE 62.5 MCG ELLIPTA 1 PUFF INHALATION (09:34)
[2022-08-28] MEDS: REMDESIVIR 100 MG/NS 250 ML 100 MG/250 ML BAG 250 MG IVPB (10:17)
[2022-08-28 12:25] LABS: Glucose Point of Care 159 mg/dl (65-105)
[2022-08-28] MEDS: POTASSIUM CHLORIDE 20 MEQ TABLET 40 MEQ PO (12:41)
[2022-08-28] MEDS: traZODone HCL 50 MG TABLET 100 MG PO (20:28)
[2022-08-28] MEDS: CYCLOBENZAPRINE HCL 10 MG TABLET PO (20:28)
[2022-08-28] MEDS: SIMVASTATIN 20 MG TABLET 40 MG PO (20:28)
[2022-08-28] MEDS: FAMOTIDINE 10 MG TABLET PO (20:28)
[2022-08-28] MEDS: BENZONATATE 100 MG CAPSULE 200 MG PO (21:20)
[2022-08-29] VITALS (12 sets, daily range): BP systolic 117–132; BP diastolic 65–76; PULSE 73–104; RESP 18–20; TEMP 36.4–36.8; O2SAT 90–97
[2022-08-29 01:53] LABS: Vancomycin Trough 14.8 ug/mL (10.0-20.0)
[2022-08-29] MEDS: LEVALBUTEROL HFA (*SP) 15 GM INHALER 2 PUFF INHALATION ×4 (02:12→21:20)
[2022-08-29 06:28] LABS: Basophils Percent Auto 0.2 % (0.2-1.2); Eosinophils Percent Auto 0.4 % (0-4.4); Hematocrit 30.6 % (42.0-52.0); Immature Granulocyte Absolute 0.12 K/mm3 (0.00-0.031); Immature Granulocyte Percent A 1.2 % (0-0.5); Immature Reticulocyte Fraction 28.2 % (3.0-15.9); Lymphocytes Absolute Auto 2.77 K/mm3 (0.9-3.2); Lymphocytes Percent Auto 28.8 % (18.3-44.2); Mean Corpuscular HGB Conc 32.7 g/dl (32-36); Mean Corpuscular Hemoglobin 34.2 pg (26-34); Mean Corpuscular Volume 104.8 fl (80-100); Monocytes Percent Auto 10.8 % (2.6-8.5); Neutrophils Absolute Auto 5.6 K/mm3 (1.3-6.7); Neutrophils Percent Auto 58.6 % (45.5-73.1); Platelet Count Result 264 k/mm3 (150-375); Red Blood Count 2.92 M/mm3 (4.6-6.20); Red Cell Distribution Width 14.5 % (11.5-14.5); Reticulocyte Hemoglobin Conten 40.6 pg (28.2-35.7); Reticulocyte Percent 3.19 % (0.7-4.3); Reticulocytes Absolute 0.09 M/mm3 (0.02-0.1); White Blood Count 9.6 K/mm3 (4.5-10.0)
[2022-08-29] MEDS: CEFEPIME 2 GM/NS 50 ML 2 GM/50 ML BAG IVPB (06:29)
[2022-08-29 06:37] LABS: Prothrombin Time 14.1 Seconds (11.1-14.7)
[2022-08-29 06:50] LABS: Alanine Aminotransferase 35 U/L (6-50); Albumin Level 2.9 g/dL (3.5-5.1); Alkaline Phosphatase 117 U/L (38-126); Anion Gap 2 mmol/L (8-16); Aspartate Amino Transferase 52 U/L (17-59); Bilirubin,Total 0.4 mg/dL (0.2-1.3); Blood Urea Nitrogen 15 mg/dL (9-20); CRP 0.6 mg/dL (<1.0); Calcium 8.1 mg/dL (8.4-10.2); Carbon Dioxide 32 mmol/L (22-30); Chloride 96 mmol/L (98-107); Estimated CRCL calculation 73 ml/min; Estimated Glomerular Filt Rate > 60; Glucose 108 mg/dL (65-110); Potassium 3.7 mmol/L (3.4-5.0); Sodium 130 mmol/L (137-145)
[2022-08-29 07:01] LABS: Iron 60 ug/dL (49-181)
[2022-08-29 07:07] LABS: Procalcitonin 0.1 ng/mL
[2022-08-29 07:10] LABS: Percent Iron Saturation 28 % (20-50)
[2022-08-29 07:48] LABS: Folic Acid 18.4 ng/mL (2.76->20)
[2022-08-29] MEDS: UMECLIDINIUM BROMIDE 62.5 MCG ELLIPTA 1 PUFF INHALATION (08:57)
[2022-08-29] MEDS: LIDOCAINE 5% PATCH 1 PATCH TRANSDERM (09:26)
[2022-08-29] MEDS: guaiFENesin 12 HR 600 MG TABCR PO ×2 (09:27→20:42)
[2022-08-29] MEDS: PANTOPRAZOLE 40 MG TABLET PO (09:27)
[2022-08-29] MEDS: NICOTINE (*PBKC) 14 MG PATCH 1 PATCH TRANSDERM (09:27)
[2022-08-29] MEDS: METOPROLOL TARTRATE 25 MG TABLET PO ×2 (09:27→20:42)
[2022-08-29] MEDS: BENZONATATE 100 MG CAPSULE 200 MG PO ×3 (09:27→17:00)
[2022-08-29] MEDS: ENOXAPARIN 40 MG/0.4 ML SYRINGE SUB-Q (09:27)
[2022-08-29] MEDS: FOLIC ACID 1 MG TABLET PO (09:28)
[2022-08-29] MEDS: CYCLOBENZAPRINE HCL 10 MG TABLET PO ×2 (09:29→22:59)
[2022-08-29] MEDS: LOSARTAN POTASSIUM 25 MG TABLET PO ×2 (09:29→17:00)
[2022-08-29] MEDS: POTASSIUM CHLORIDE 20 MEQ TABLET.ER 40 MEQ PO (09:29)
[2022-08-29] MEDS: THIAMINE HCL 100 MG TABLET PO (09:29)
[2022-08-29] MEDS: CITALOPRAM HYDROBROMIDE 20 MG TABLET PO (09:29)
[2022-08-29] MEDS: THERAPEUTIC MULTIVITAMINS/MINERALS TAB (*BKC) 1 TABLET PO (09:29)
[2022-08-29] MEDS: FUROSEMIDE 40 MG TABLET PO (09:29)
[2022-08-29] MEDS: REMDESIVIR 100 MG/NS 250 ML 100 MG/250 ML BAG 250 MG IVPB (09:37)
[2022-08-29] MEDS: levoFLOXacin 750 MG TABLET PO (12:13)
--- NOTE | 2022-08-29 15:22 | PM.IMPN ---
Progress Note: A&P Assessment and Plan (1) COVID-19: Code(s): U07.1 - COVID-19 Status: Acute Assessment and Plan: Patient tested positive for COVID-19 on 08/23/22. Placed in COVID specific isolation. Patient is requiring 2 L supplemental oxygen with increasing shortness of breath and has multiple comorbidities placing him at risk for severe infection. Continue remdesivir IV loading dose then 100 mg daily. Continue dexamethasone 6 mg IV daily. Continue MDI Q 6 hours-albuterol changed to Xopenex due to tachycardia. Incruse Ellipta daily continued as Atrovent MDI is unavailable currently. Lovenox for DVT prophylaxis 08/29/22 Day 3 Remdesivir and dexamethasone. Repeat CXR in am. Blood cultures negative. (2) COPD exacerbation: Code(s): J44.1 - Chronic obstructive pulmonary disease with (acute) exacerbation Status: Acute Assessment and Plan: Continue management for COVID-19 as above. Patient does have sputum color changes and therefore will initiate empiric antibiotics. Patient has been treated with Levaquin and cefdinir within the past 3 months. Treated with broad-spectrum antibiotics-IV vancomycin with pharmacy to dose, IV cefepime Pseudomonas dose, and IV azithromycin for atypical coverage, started 08/27/22. Will deescalate antibiotics in the next 24-48 hours pending culture results. Blood cultures negative to date. procalcitonin 0.2, CRP 1.1. 08/29/22 CRP 0.6 and procalcitonin 0.1 improving. Pulmonology was consulted and appreciate recommendations. 08/29/22 MRSA positive- change vancomycin to doxycycline 100 mg PO BID to complete 7-day course. Change cefepime and azithromycin to levaquin 750 mg PO daily x5-7 days. patient weaned to room air at rest. (3) Respiratory failure with hypoxia: Qualifiers: Chronicity: acute Qualified Code(s): J96.01 - Acute respiratory failure with hypoxia Code(s): J96.91 - Respiratory failure, unspecified with hypoxia Status: Acute Assessment and Plan: Secondary to COVID19 and acute COPD exacerbation- continue management as above. May have an underlying component of acute exacerbation of diastolic CHF given BNP 4000 (previous admission was 1490 and 1520 on 08/23/22)- diuresed with Lasix 40 mg IV daily x48 hours with improvement. CTA chest completed 08/23/22 and negative for PE, given this acute PE contributing to hypoxia less likely. Continue supplemental O2 and wean as tolerated to keep spO2 91-94%. Weaned to room air at rest. He will need home O2 evaluation prior to discharge.? (4) Acute congestive heart failure: Qualifiers: Heart failure type: diastolic Qualified Code(s): I50.31 - Acute diastolic (congestive) heart failure Code(s): I50.9 - Heart failure, unspecified Status: Acute Assessment and Plan: Acute exacerbation of chronic diastolic CHF. Echocardiogram from 07/15/22 showed EF 60% with mild valve disease, grade 1 diastolic dysfunction. H2FPEF score 45.7% HFpEF. BNP 4000. Patient has panlobar emphysema and pulmonary edema may not be easily detected on imaging. Diuresed with Lasix 40 mg IV daily x48 hours with improvement in respiratory status and LE edema. Sodium dropped 129 today. Will change to oral furosemide and adjust as needed to obtain euvolemia supplement potassium daily daily weights and monitor strict I's and O's. Continue beta-rony and ARB. On PO furosemide 40 mg daily. Repeat CXR in am. (5) Hypokalemia: Code(s): E87.6 - Hypokalemia Status: Acute Assessment and Plan: K3.1. Patient is on chronic loop diuretics. Given 40 mEQ PO in ED. Continue 40 mEQ PO daily with diuretics. Daily BMP. K3.7 and stable. (6) Hyponatremia: Code(s): E87.1 - Hypo-osmolality and hyponatremia Status: Acute Assessment and Plan: Sodium 130, glucose is not elevated. Given elevated BNP and lower extremity edema this is likely secondary to hyperv
[2022-08-29] MEDS: MUPIROCIN 2% OINT 22 GM TUBE 1 APPLIC EACH NARE (20:41)
[2022-08-29] MEDS: SIMVASTATIN 20 MG TABLET 40 MG PO (20:41)
[2022-08-29] MEDS: traZODone HCL 50 MG TABLET 100 MG PO (20:41)
[2022-08-29] MEDS: FAMOTIDINE 10 MG TABLET PO (20:42)
[2022-08-29] MEDS: DOXYCYCLINE HYCLATE 100 MG TABLET PO (20:42)
[2022-08-30] VITALS (8 sets, daily range): BP systolic 110–117; BP diastolic 62–76; PULSE 71–110; RESP 18–20; TEMP 36.3–36.7; O2SAT 94–97
[2022-08-30] MEDS: LEVALBUTEROL HFA (*SP) 15 GM INHALER 2 PUFF INHALATION ×4 (02:51→19:38)
[2022-08-30 06:30] LABS: Basophils Percent Auto 0.4 % (0.2-1.2); Eosinophils Absolute Auto 0.1 K/mm3 (0-0.3); Eosinophils Percent Auto 0.7 % (0-4.4); Hematocrit 33.5 % (42.0-52.0); Immature Granulocyte Absolute 0.39 K/mm3 (0.00-0.031); Immature Granulocyte Percent A 3.7 % (0-0.5); Lymphocytes Absolute Auto 3.43 K/mm3 (0.9-3.2); Lymphocytes Percent Auto 32.6 % (18.3-44.2); Mean Corpuscular HGB Conc 32.8 g/dl (32-36); Mean Corpuscular Hemoglobin 34.8 pg (26-34); Mean Platelet Volume 8.8 fl (7.4-10.4); Monocytes Absolute Auto 1.2 K/mm3 (0.1-0.6); Monocytes Percent Auto 11.4 % (2.6-8.5); Neutrophils Absolute Auto 5.4 K/mm3 (1.3-6.7); Neutrophils Percent Auto 51.2 % (45.5-73.1); Platelet Count Result 312 k/mm3 (150-375); Red Blood Count 3.16 M/mm3 (4.6-6.20); Red Cell Distribution Width 14.7 % (11.5-14.5); White Blood Count 10.5 K/mm3 (4.5-10.0)
[2022-08-30 06:34] LABS: Alanine Aminotransferase 36 U/L (6-50); Alkaline Phosphatase 110 U/L (38-126); Anion Gap 1 mmol/L (8-16); Aspartate Amino Transferase 46 U/L (17-59); Bilirubin,Total 0.4 mg/dL (0.2-1.3); Blood Urea Nitrogen 20 mg/dL (9-20); Calcium 8.5 mg/dL (8.4-10.2); Carbon Dioxide 36 mmol/L (22-30); Chloride 94 mmol/L (98-107); Estimated CRCL calculation 66 ml/min; Estimated Glomerular Filt Rate > 60; Glucose 84 mg/dL (65-110); Sodium 131 mmol/L (137-145)
[2022-08-30 06:35] LABS: Prothrombin Time 13.8 Seconds (11.1-14.7)
[2022-08-30 07:06] LABS: Macrocytosis 1+ (NORMAL); Platelet Estimate Adequate (Adequate); Schistocytes None Seen (NORMAL)
[2022-08-30] MEDS: CITALOPRAM HYDROBROMIDE 20 MG TABLET PO (08:58)
[2022-08-30] MEDS: POTASSIUM CHLORIDE 20 MEQ TABLET.ER 40 MEQ PO (08:58)
[2022-08-30] MEDS: DOXYCYCLINE HYCLATE 100 MG TABLET PO ×2 (08:59→22:21)
[2022-08-30] MEDS: levoFLOXacin 750 MG TABLET PO (09:00)
[2022-08-30] MEDS: FOLIC ACID 1 MG TABLET PO (09:00)
[2022-08-30] MEDS: guaiFENesin 12 HR 600 MG TABCR PO ×2 (09:00→22:19)
[2022-08-30] MEDS: ENOXAPARIN 40 MG/0.4 ML SYRINGE SUB-Q (09:00)
[2022-08-30] MEDS: FUROSEMIDE 40 MG TABLET PO (09:00)
[2022-08-30] MEDS: UMECLIDINIUM BROMIDE 62.5 MCG ELLIPTA 1 PUFF INHALATION (09:00)
[2022-08-30] MEDS: LOSARTAN POTASSIUM 25 MG TABLET PO ×2 (09:01→18:02)
[2022-08-30] MEDS: PANTOPRAZOLE 40 MG TABLET PO (09:02)
[2022-08-30] MEDS: MUPIROCIN 2% OINT 22 GM TUBE 1 APPLIC EACH NARE ×2 (09:02→22:18)
[2022-08-30] MEDS: THIAMINE HCL 100 MG TABLET PO (09:02)
[2022-08-30] MEDS: LIDOCAINE 5% PATCH 1 PATCH TRANSDERM ×2 (09:07→21:00)
[2022-08-30] MEDS: NICOTINE (*PBKC) 14 MG PATCH 1 PATCH TRANSDERM (09:07)
[2022-08-30] MEDS: METOPROLOL TARTRATE 25 MG TABLET PO ×2 (09:08→22:19)
--- NOTE | 2022-08-30 10:04 | PM.IMPN ---
Progress Note: A&P Assessment and Plan (1) COVID-19: Code(s): U07.1 - COVID-19 Status: Acute Assessment and Plan: Patient tested positive for COVID-19 on 08/23/22. Placed in COVID specific isolation. Patient is requiring 2 L supplemental oxygen with increasing shortness of breath and has multiple comorbidities placing him at risk for severe infection. Continue remdesivir IV loading dose then 100 mg daily. Continue dexamethasone 6 mg IV daily. Continue MDI Q 6 hours-albuterol changed to Xopenex due to tachycardia. Incruse Ellipta daily continued as Atrovent MDI is unavailable currently. Lovenox for DVT prophylaxis 08/29/22 Day 3 Remdesivir and dexamethasone. Repeat CXR in am. Blood cultures negative. 08/30/22 CXR shows emphysema with mild atelectasis, grossly unchanged from admission. Day 4 Remdesivir and systemic steroids (2) COPD exacerbation: Code(s): J44.1 - Chronic obstructive pulmonary disease with (acute) exacerbation Status: Acute Assessment and Plan: Continue management for COVID-19 as above. Patient does have sputum color changes and therefore will initiate empiric antibiotics. Patient has been treated with Levaquin and cefdinir within the past 3 months. Treated with broad-spectrum antibiotics-IV vancomycin with pharmacy to dose, IV cefepime Pseudomonas dose, and IV azithromycin for atypical coverage, started 08/27/22. Will deescalate antibiotics in the next 24-48 hours pending culture results. Blood cultures negative to date. procalcitonin 0.2, CRP 1.1. 08/29/22 CRP 0.6 and procalcitonin 0.1 improving. Pulmonology was consulted and appreciate recommendations. 08/29/22 MRSA positive- change vancomycin to doxycycline 100 mg PO BID to complete 7-day course. Change cefepime and azithromycin to levaquin 750 mg PO daily x5-7 days. patient weaned to room air at rest. Last dose antibiotics 09/02/22 (3) Respiratory failure with hypoxia: Qualifiers: Chronicity: acute Qualified Code(s): J96.01 - Acute respiratory failure with hypoxia Code(s): J96.91 - Respiratory failure, unspecified with hypoxia Status: Acute Assessment and Plan: Secondary to COVID19 and acute COPD exacerbation- continue management as above. May have an underlying component of acute exacerbation of diastolic CHF given BNP 4000 (previous admission was 1490 and 1520 on 08/23/22)- diuresed with Lasix 40 mg IV daily x48 hours with improvement. CTA chest completed 08/23/22 and negative for PE, given this acute PE contributing to hypoxia less likely. Continue supplemental O2 and wean as tolerated to keep spO2 91-94%. Weaned to room air at rest. He will need home O2 evaluation prior to discharge.? (4) Acute congestive heart failure: Qualifiers: Heart failure type: diastolic Qualified Code(s): I50.31 - Acute diastolic (congestive) heart failure Code(s): I50.9 - Heart failure, unspecified Status: Acute Assessment and Plan: Acute exacerbation of chronic diastolic CHF. Echocardiogram from 07/15/22 showed EF 60% with mild valve disease, grade 1 diastolic dysfunction. H2FPEF score 45.7% HFpEF. BNP 4000. Patient has panlobar emphysema and pulmonary edema may not be easily detected on imaging. Diuresed with Lasix 40 mg IV daily x48 hours with improvement in respiratory status and LE edema. Sodium dropped 129 today. Will change to oral furosemide and adjust as needed to obtain euvolemia supplement potassium daily daily weights and monitor strict I's and O's- weight 88 kg and appears unchanged from yesterday. I/O- urine exact volume not recorded and unable to accurately infer volume status from this. Continue beta-rony and ARB. On PO furosemide 40 mg daily. 08/30/22 Repeat CXR without effusion or edema noted. (5) Hypokalemia: Code(s): E87.6 - Hypokalemia Status: Acute Assessment and Plan: K3.1. Patient is on chronic loop diuretics. Given 40 mE
[2022-08-30] MEDS: REMDESIVIR 100 MG/NS 250 ML 100 MG/250 ML BAG 250 MG IVPB (10:24)
--- NOTE | 2022-08-30 10:36 | PCOTNOTE ---
Attempted to see Patient at this time. Patient verbalized he has been going at it since 4:30 this morning and must sleep. Patient requested for therapy to try back this afternoon.
[2022-08-30] MEDS: THERAPEUTIC MULTIVITAMINS/MINERALS TAB (*BKC) 1 TABLET PO (12:31)
--- NOTE | 2022-08-30 14:25 | PCOTNOTE ---
Attempted to see patient for P.M. treatment session as requested. Patient verbalized, I just finished physical therapy, I dont have any needs at this time. Patient verbalized he would like to shower tomorrow morning. Patient declined to participate this afternoon.
--- NOTE | 2022-08-30 20:31 | PC.NURSE ---
Pt has been resting most of the day. Pt is hoping to feel well enough to discharge tomorrow. Pt has been compliant with care. Pt had IV replaced today. Pt has been monitored for any change in status throughout this shift.
[2022-08-30] MEDS: SIMVASTATIN 20 MG TABLET 40 MG PO (22:18)
[2022-08-30] MEDS: FAMOTIDINE 10 MG TABLET PO (22:21)
[2022-08-30] MEDS: traZODone HCL 50 MG TABLET 100 MG PO (22:32)
[2022-08-31] VITALS (14 sets, daily range): BP systolic 100–113; BP diastolic 50–65; PULSE 67–118; RESP 14–20; TEMP 36.1–36.8; O2SAT 93–97
[2022-08-31] MEDS: LEVALBUTEROL HFA (*SP) 15 GM INHALER 2 PUFF INHALATION ×2 (02:20→09:17)
[2022-08-31 06:41] LABS: Basophils Absolute Auto 0.1 K/mm3 (0.0-0.1); Basophils Percent Auto 0.7 % (0.2-1.2); Eosinophils Absolute Auto 0.1 K/mm3 (0-0.3); Eosinophils Percent Auto 0.5 % (0-4.4); Hemoglobin 11.8 g/dL (14.0-18.0); Immature Granulocyte Absolute 0.98 K/mm3 (0.00-0.031); Immature Granulocyte Percent A 6.8 % (0-0.5); Lymphocytes Absolute Auto 4.49 K/mm3 (0.9-3.2); Lymphocytes Percent Auto 31.2 % (18.3-44.2); Mean Corpuscular HGB Conc 32.8 g/dl (32-36); Mean Corpuscular Hemoglobin 34.7 pg (26-34); Mean Corpuscular Volume 105.9 fl (80-100); Monocytes Absolute Auto 1.6 K/mm3 (0.1-0.6); Monocytes Percent Auto 10.8 % (2.6-8.5); Neutrophils Absolute Auto 7.2 K/mm3 (1.3-6.7); Platelet Count Result 395 k/mm3 (150-375); Red Cell Distribution Width 14.8 % (11.5-14.5); White Blood Count 14.4 K/mm3 (4.5-10.0)
[2022-08-31 06:51] LABS: Prothrombin Time 13.6 Seconds (11.1-14.7)
[2022-08-31 06:58] LABS: Alanine Aminotransferase 35 U/L (6-50); Albumin Level 3.4 g/dL (3.5-5.1); Alkaline Phosphatase 110 U/L (38-126); Anion Gap 2 mmol/L (8-16); Aspartate Amino Transferase 36 U/L (17-59); Bilirubin,Total 0.4 mg/dL (0.2-1.3); Blood Urea Nitrogen 30 mg/dL (9-20); CRP < 0.5 mg/dL (<1.0); Calcium 8.8 mg/dL (8.4-10.2); Carbon Dioxide 36 mmol/L (22-30); Chloride 92 mmol/L (98-107); Estimated CRCL calculation 52 ml/min; Estimated Glomerular Filt Rate 56; Glucose 91 mg/dL (65-110); Potassium 4.1 mmol/L (3.4-5.0); Sodium 130 mmol/L (137-145)
[2022-08-31 07:43] LABS: Procalcitonin 0.1 ng/mL
--- NOTE | 2022-08-31 08:19 | P.PNIM_ITS ---
Progress Note: A&P Assessment and Plan (1) COVID-19: Code(s): U07.1 - COVID-19 Status: Acute Assessment and Plan: Patient tested positive for COVID-19 on 08/23/22. Placed in COVID specific isolation. Patient is requiring 2 L supplemental oxygen with increasing shortness of breath and has multiple comorbidities placing him at risk for severe infection. * Continue remdesivir IV loading dose then 100 mg daily. * Continue dexamethasone 6 mg IV daily. * Continue MDI Q 6 hours-albuterol changed to Xopenex due to tachycardia. Incruse Ellipta daily continued as Atrovent MDI is unavailable currently. * Lovenox for DVT prophylaxis * 08/29/22 Day 3 Remdesivir and dexamethasone. Repeat CXR in am. Blood cultures negative. * 08/30/22 CXR shows emphysema with mild atelectasis, grossly unchanged from admission. Day 4 Remdesivir and systemic steroids * 08/31/22 Remdesivir completed 5 days. Day 4 dexamethasone. * Improving. Patient is day 9 of COVID19 illness and isolation. (2) COPD exacerbation: Code(s): J44.1 - Chronic obstructive pulmonary disease with (acute) exacerbation Status: Acute Assessment and Plan: Continue management for COVID-19 as above. Patient does have sputum color changes and therefore will initiate empiric antibiotics. Patient has been treated with Levaquin and cefdinir within the past 3 months. * Treated with broad-spectrum antibiotics-IV vancomycin with pharmacy to dose, IV cefepime Pseudomonas dose, and IV azithromycin for atypical coverage, started 08/27/22. Will deescalate antibiotics in the next 24-48 hours pending culture results. * Blood cultures negative to date. * procalcitonin 0.2, CRP 1.1. 08/29/22 CRP 0.6 and procalcitonin 0.1 improving. * Pulmonology was consulted and appreciate recommendations. * 08/29/22 MRSA positive- change vancomycin to doxycycline 100 mg PO BID to complete 7-day course. Change cefepime and azithromycin to levaquin 750 mg PO daily x5-7 days. patient weaned to room air at rest. Last dose antibiotics 09/02/22 * Change to Advair 250/50 2 inhalations BID, Incruse Ellipta and PRN MDI Xopenex (3) Respiratory failure with hypoxia: Qualifiers: Chronicity: acute Qualified Code(s): J96.01 - Acute respiratory failure with hypoxia Code(s): J96.91 - Respiratory failure, unspecified with hypoxia Status: Acute Assessment and Plan: Secondary to COVID19 and acute COPD exacerbation- continue management as above. * May have an underlying component of acute exacerbation of diastolic CHF given BNP 4000 (previous admission was 1490 and 1520 on 08/23/22)- diuresed with Lasix 40 mg IV daily x48 hours with improvement. * CTA chest completed 08/23/22 and negative for PE, given this acute PE contributing to hypoxia less likely. * Continue supplemental O2 and wean as tolerated to keep spO2 91-94%. Weaned to room air at rest. * Home O2 evaluation today 08/31/22 * Overnight apnea link tonight for evaluation of nocturnal hypoxia. (4) Acute congestive heart failure: Qualifiers: Heart failure type: diastolic Qualified Code(s): I50.31 - Acute diastolic (congestive) heart failure Code(s): I50.9 - Heart failure, unspecified Status: Acute Assessment and Plan: Acute exacerbation of chronic diastolic CHF. Echocardiogram from 07/15/22 showed EF 60% with mild valve disease, grade 1 diastolic dysfunction. H2FPEF score 45.7% HFpEF. * BNP 4000. Patient has panlobar emphysema and pulmonary edema may not be easily detected on imaging. * Diuresed with Lasix 40 mg IV daily x48 hours with improvement in respiratory
--- NOTE | 2022-08-31 08:19 | PM.IMPN ---
Progress Note: A&P Assessment and Plan (1) COVID-19: Code(s): U07.1 - COVID-19 Status: Acute Assessment and Plan: Patient tested positive for COVID-19 on 08/23/22. Placed in COVID specific isolation. Patient is requiring 2 L supplemental oxygen with increasing shortness of breath and has multiple comorbidities placing him at risk for severe infection. Continue remdesivir IV loading dose then 100 mg daily. Continue dexamethasone 6 mg IV daily. Continue MDI Q 6 hours-albuterol changed to Xopenex due to tachycardia. Incruse Ellipta daily continued as Atrovent MDI is unavailable currently. Lovenox for DVT prophylaxis 08/29/22 Day 3 Remdesivir and dexamethasone. Repeat CXR in am. Blood cultures negative. 08/30/22 CXR shows emphysema with mild atelectasis, grossly unchanged from admission. Day 4 Remdesivir and systemic steroids 08/31/22 Remdesivir completed 5 days. Day 4 dexamethasone. Improving. Patient is day 9 of COVID19 illness and isolation. (2) COPD exacerbation: Code(s): J44.1 - Chronic obstructive pulmonary disease with (acute) exacerbation Status: Acute Assessment and Plan: Continue management for COVID-19 as above. Patient does have sputum color changes and therefore will initiate empiric antibiotics. Patient has been treated with Levaquin and cefdinir within the past 3 months. Treated with broad-spectrum antibiotics-IV vancomycin with pharmacy to dose, IV cefepime Pseudomonas dose, and IV azithromycin for atypical coverage, started 08/27/22. Will deescalate antibiotics in the next 24-48 hours pending culture results. Blood cultures negative to date. procalcitonin 0.2, CRP 1.1. 08/29/22 CRP 0.6 and procalcitonin 0.1 improving. Pulmonology was consulted and appreciate recommendations. 08/29/22 MRSA positive- change vancomycin to doxycycline 100 mg PO BID to complete 7-day course. Change cefepime and azithromycin to levaquin 750 mg PO daily x5-7 days. patient weaned to room air at rest. Last dose antibiotics 09/02/22 Change to Advair 250/50 2 inhalations BID, Incruse Ellipta and PRN MDI Xopenex (3) Respiratory failure with hypoxia: Qualifiers: Chronicity: acute Qualified Code(s): J96.01 - Acute respiratory failure with hypoxia Code(s): J96.91 - Respiratory failure, unspecified with hypoxia Status: Acute Assessment and Plan: Secondary to COVID19 and acute COPD exacerbation- continue management as above. May have an underlying component of acute exacerbation of diastolic CHF given BNP 4000 (previous admission was 1490 and 1520 on 08/23/22)- diuresed with Lasix 40 mg IV daily x48 hours with improvement. CTA chest completed 08/23/22 and negative for PE, given this acute PE contributing to hypoxia less likely. Continue supplemental O2 and wean as tolerated to keep spO2 91-94%. Weaned to room air at rest. Home O2 evaluation today 08/31/22 Overnight apnea link tonight for evaluation of nocturnal hypoxia. (4) Acute congestive heart failure: Qualifiers: Heart failure type: diastolic Qualified Code(s): I50.31 - Acute diastolic (congestive) heart failure Code(s): I50.9 - Heart failure, unspecified Status: Acute Assessment and Plan: Acute exacerbation of chronic diastolic CHF. Echocardiogram from 07/15/22 showed EF 60% with mild valve disease, grade 1 diastolic dysfunction. H2FPEF score 45.7% HFpEF. BNP 4000. Patient has panlobar emphysema and pulmonary edema may not be easily detected on imaging. Diuresed with Lasix 40 mg IV daily x48 hours with improvement in respiratory status and LE edema. Sodium dropped 129 today. Will change to oral furosemide and adjust as needed to obtain euvolemia supplement potassium daily daily weights and monitor strict I's and O's- weight 88 kg and appears unchanged from yesterday. I/O- urine exact volume not recorded and unable to accurately infer volume status from this. Continue beta-rony a
[2022-08-31] MEDS: UMECLIDINIUM BROMIDE 62.5 MCG ELLIPTA 1 PUFF INHALATION (09:17)
[2022-08-31] MEDS: ENOXAPARIN 40 MG/0.4 ML SYRINGE SUB-Q (09:28)
[2022-08-31] MEDS: MUPIROCIN 2% OINT 22 GM TUBE 1 APPLIC EACH NARE ×2 (09:29→20:35)
[2022-08-31] MEDS: NICOTINE (*PBKC) 14 MG PATCH 1 PATCH TRANSDERM (09:29)
[2022-08-31] MEDS: DOXYCYCLINE HYCLATE 100 MG TABLET PO ×2 (09:29→20:35)
[2022-08-31] MEDS: DEXAMETHASONE 2 MG TABLET 6 MG PO (09:30)
[2022-08-31] MEDS: THIAMINE HCL 100 MG TABLET PO (09:30)
[2022-08-31] MEDS: guaiFENesin 12 HR 600 MG TABCR PO ×2 (09:30→20:37)
[2022-08-31] MEDS: CITALOPRAM HYDROBROMIDE 20 MG TABLET PO (09:30)
[2022-08-31] MEDS: FUROSEMIDE 40 MG TABLET PO (09:30)
[2022-08-31] MEDS: PANTOPRAZOLE 40 MG TABLET PO (09:30)
[2022-08-31] MEDS: METOPROLOL TARTRATE 25 MG TABLET PO ×2 (09:31→20:38)
[2022-08-31] MEDS: levoFLOXacin 750 MG TABLET PO (09:31)
[2022-08-31] MEDS: POTASSIUM CHLORIDE 20 MEQ TABLET.ER 40 MEQ PO (09:31)
[2022-08-31] MEDS: FOLIC ACID 1 MG TABLET PO (09:31)
[2022-08-31] MEDS: LOSARTAN POTASSIUM 25 MG TABLET PO ×2 (09:31→18:43)
[2022-08-31] MEDS: REMDESIVIR 100 MG/NS 250 ML 100 MG/250 ML BAG 250 MG IVPB (09:31)
[2022-08-31] MEDS: THERAPEUTIC MULTIVITAMINS/MINERALS TAB (*BKC) 1 TABLET PO (11:03)
--- NOTE | 2022-08-31 11:12 | PC.NURSE ---
Pt was found in room after using the restroom. Smell of cigarette smoke was coming from the bathroom. Pt was questioned about smoking in bathroom. Pt reported that he was and pt was informed that smoking is not allowed in the hospital and we would have to remove cigarettes and firestopper technician from pts room. Pt gave cigarettes and firestopper technician to nurse and nurse turned them into charge nurse.
--- NOTE | 2022-08-31 14:40 | HOMEO2EVAL ---
Evaluation was performed at [facility] Home Oxygen Evaluation RC: Home Oxygen (O2) Evaluation Start: 08/31/22 14:39 Freq: Status: Active Protocol: RPE Activity Type Activity Date Activity User E-sign Co-sign Detail Recorded Client Recorded Date Recorded By Document 08/31/22 14:20 ABBY [id number] 08/31/22 14:40 ABBY Document 08/31/22 14:25 ABBY [id number] 08/31/22 14:40 ABBY Document 08/31/22 14:35 ABBY [id number] 08/31/22 14:40 ABBY 08/31/22 08/31/22 08/31/22 14:20 14:25 14:35 Home O2 Evaluation [Oxygen] -Test Phase Resting Exercise Resting -Oxygen Delivery Room Air Room Air Room Air [Pulse Oximetry] -Pulse Oximetry (90-100 %) 96 94 96 [Pulse Rate] -Pulse Rate (60-100 beats/min) 90 118 H 96 [Comments] -Home Oxygen Evaluation Comments NO HOME O2 NEEDED [Charges] -Treatment Charges O2 Evaluation - Inpatient
--- NOTE | 2022-08-31 14:41 | PCRCNOTE ---
HOME O2 EVAL COMPLETED. NO HOME O2 NEEDED AT THIS TIME.
--- NOTE | 2022-08-31 15:15 | PCOTNOTE ---
Patient verbalized he was supposed to leave this date. He decided he was going to stay 1 more night due to needing to get some good sleep first. Patient verbalized he does not need services, just sleep and left alone.
--- NOTE | 2022-08-31 15:29 | PCPTNOTE ---
Attempted to see patient for PT, however patient refused. Patient reported he just got up and does not want to do anything.
[2022-08-31] MEDS: FLUTICASONE/SALMETEROL 115-21 MCG INHALER 1 PUFF 2 PUFF INHALATION (20:14)
[2022-08-31] MEDS: SIMVASTATIN 20 MG TABLET 40 MG PO (20:36)
[2022-08-31] MEDS: FAMOTIDINE 10 MG TABLET PO (20:39)
--- NOTE | 2022-08-31 21:02 | PC.NURSE ---
Pt had no reports of pain and expressed no needs during this shift. Pt sleeping off and on all day. Pt had some confusion when being woke up but quickly returned to base line. Pt was monitored for any changes in status during this shift.
[2022-09-01 07:36] LABS: Hemoglobin 12.3 g/dL (14.0-18.0); Mean Corpuscular HGB Conc 32.4 g/dl (32-36); Mean Corpuscular Volume 108.3 fl (80-100); Mean Platelet Volume 8.7 fl (7.4-10.4); Platelet Count Result 481 k/mm3 (150-375); Red Blood Count 3.51 M/mm3 (4.6-6.20); Red Cell Distribution Width 15.3 % (11.5-14.5); White Blood Count 16.7 K/mm3 (4.5-10.0)
[2022-09-01] MEDS: traZODone HCL 50 MG TABLET 100 MG PO (07:40)
[2022-09-01 07:56] LABS: NT Pro B Type Natriuretic Pept 591 pg/mL (19.9-100)
[2022-09-01 07:58] LABS: Anion Gap 5 mmol/L (8-16); Blood Urea Nitrogen 38 mg/dL (9-20); Calcium 8.7 mg/dL (8.4-10.2); Carbon Dioxide 35 mmol/L (22-30); Chloride 90 mmol/L (98-107); Estimated CRCL calculation 56 ml/min; Estimated Glomerular Filt Rate > 60; Glucose 80 mg/dL (65-110); Magnesium 1.5 mg/dL (1.6-2.3); Potassium 4.1 mmol/L (3.4-5.0); Sodium 130 mmol/L (137-145)
[2022-09-01] MEDS: UMECLIDINIUM BROMIDE 62.5 MCG ELLIPTA 1 PUFF INHALATION (08:19)
[2022-09-01] MEDS: FLUTICASONE/SALMETEROL 115-21 MCG INHALER 1 PUFF 2 PUFF INHALATION (08:19)
[2022-09-01] MEDS: LIDOCAINE 5% PATCH 1 PATCH TRANSDERM (09:08)
[2022-09-01] MEDS: NICOTINE (*PBKC) 14 MG PATCH 1 PATCH TRANSDERM (09:08)
[2022-09-01] MEDS: POTASSIUM CHLORIDE 20 MEQ TABLET.ER 40 MEQ PO (09:09)
[2022-09-01] MEDS: FOLIC ACID 1 MG TABLET PO (09:09)
[2022-09-01] MEDS: PANTOPRAZOLE 40 MG TABLET PO (09:09)
[2022-09-01] MEDS: DEXAMETHASONE 2 MG TABLET 6 MG PO (09:09)
[2022-09-01] MEDS: levoFLOXacin 750 MG TABLET PO (09:09)
[2022-09-01] MEDS: guaiFENesin 12 HR 600 MG TABCR PO (09:09)
[2022-09-01] MEDS: ENOXAPARIN 40 MG/0.4 ML SYRINGE SUB-Q (09:09)
[2022-09-01] MEDS: FUROSEMIDE 40 MG TABLET PO (09:10)
[2022-09-01] MEDS: THIAMINE HCL 100 MG TABLET PO (09:10)
[2022-09-01] MEDS: METOPROLOL TARTRATE 25 MG TABLET PO (09:10)
[2022-09-01] MEDS: LOSARTAN POTASSIUM 25 MG TABLET PO (09:10)
[2022-09-01] MEDS: CITALOPRAM HYDROBROMIDE 20 MG TABLET PO (09:10)
[2022-09-01] MEDS: DOXYCYCLINE HYCLATE 100 MG TABLET PO (09:10)
[2022-09-01] MEDS: MAGNESIUM SULFATE 3GM/D5W100ML 3 GM/100 ML BAG IVPB (09:11)
[2022-09-01] MEDS: MUPIROCIN 2% OINT 22 GM TUBE 1 APPLIC EACH NARE (09:11)
--- NOTE | 2022-09-01 11:20 | PCOTNOTE ---
Attempted to see Patient at this time. Patient refused therapy services, verbalizing he was supposed to be leaving today but he has been vomiting and not feeling well. Patient refused to perform any activity at this time. Patient will be checked back on this afternoon.
[2022-09-01] MEDS: THERAPEUTIC MULTIVITAMINS/MINERALS TAB (*BKC) 1 TABLET PO (13:10)
[2022-09-01 13:14] VITALS: BP 110/59; PULSE 89; RESP 18; TEMP 36.3; O2SAT 98
--- NOTE | 2022-09-01 15:31 | P.DS_ITS ---
DS: Admitting Diagnosis Discharge Date 09/01/22 Admitting Diagnosis COVID, CHF exacerbation, COPD exacerbation DS: Discharge Diagnosis Discharge Diagnosis (1) COVID-19: Code(s): U07.1 - COVID-19 Status: Acute Assessment and Plan: Patient tested positive for COVID-19 on 08/23/22. Placed in COVID specific isolation. Patient is requiring 2 L supplemental oxygen with increasing shortness of breath and has multiple comorbidities placing him at risk for severe infection. * Continue remdesivir IV loading dose then 100 mg daily. * Continue dexamethasone 6 mg IV daily. * Continue MDI Q 6 hours-albuterol changed to Xopenex due to tachycardia. Incruse Ellipta daily continued as Atrovent MDI is unavailable currently. * Lovenox for DVT prophylaxis * 08/29/22 Day 3 Remdesivir and dexamethasone. Repeat CXR in am. Blood cultures negative. * 08/30/22 CXR shows emphysema with mild atelectasis, grossly unchanged from admission. Day 4 Remdesivir and systemic steroids * 08/31/22 Remdesivir completed 5 days. Day 4 dexamethasone. * Improving. Patient is day 9 of COVID19 illness and isolation. (2) COPD exacerbation: Code(s): J44.1 - Chronic obstructive pulmonary disease with (acute) exacerbation Status: Acute Assessment and Plan: Continue management for COVID-19 as above. Patient does have sputum color changes and therefore will initiate empiric antibiotics. Patient has been treated with Levaquin and cefdinir within the past 3 months. * Treated with broad-spectrum antibiotics-IV vancomycin with pharmacy to dose, IV cefepime Pseudomonas dose, and IV azithromycin for atypical coverage, started 08/27/22. Will deescalate antibiotics in the next 24-48 hours pending culture results. * Blood cultures negative to date. * procalcitonin 0.2, CRP 1.1. 08/29/22 CRP 0.6 and procalcitonin 0.1 improving. * Pulmonology was consulted and appreciate recommendations. * 08/29/22 MRSA positive- change vancomycin to doxycycline 100 mg PO BID to complete 7-day course. Change cefepime and azithromycin to levaquin 750 mg PO daily x5-7 days. patient weaned to room air at rest. Last dose antibiotics 09/02/22 * Change to Advair 250/50 2 inhalations BID, Incruse Ellipta and PRN MDI Xopenex (3) Respiratory failure with hypoxia: Qualifiers: Chronicity: acute Qualified Code(s): J96.01 - Acute respiratory failure with hypoxia Code(s): J96.91 - Respiratory failure, unspecified with hypoxia Status: Acute Assessment and Plan: Secondary to COVID19 and acute COPD exacerbation- continue management as above. * May have an underlying component of acute exacerbation of diastolic CHF given BNP 4000 (previous admission was 1490 and 1520 on 08/23/22)- diuresed with Lasix 40 mg IV daily x48 hours with improvement. * CTA chest completed 08/23/22 and negative for PE, given this acute PE contributing to hypoxia less likely. * Continue supplemental O2 and wean as tolerated to keep spO2 91-94%. Weaned to room air at rest. * Home O2 evaluation today 08/31/22 * Overnight apnea link tonight for evaluation of nocturnal hypoxia. (4) Acute congestive heart failure: Qualifiers: Heart failure type: diastolic Qualified Code(s): I50.31 - Acute diastolic (congestive) heart failure Code(s): I50.9 - Heart failure, unspecified Status: Acute Assessment and Plan: Acute exacerbation of chronic diastolic CHF. Echocardiogram from 07/15/22 showed EF 60% with mild valve disease, grade 1 diastolic dysfunction. H2FPEF score 45.7% HFpEF. * BNP 4000. Patient has panlobar emphysema and pulm
== END 2022-09-01 17:50 | disposition home or self-care (01) | DRG 177 ==
LOC: ANHED 03:49 → ANHIMU 05:51 → ANH3MEDSUR 08-28 14:07
PROVIDERS: Nurse Practitioner Family; Admitting Provider Internal Medicine; Emergency Provider Emergency Medicine; PCP Hospitalist; Visit Provider Internal Medicine Critical Care Medicine
DX: U07.1 COVID-19 (principal); I50.33 Acute on chronic diastolic (congestive) heart failure; J96.01 Acute respiratory failure with hypoxia; J12.82 Pneumonia due to coronavirus disease 2019; J44.1 Chronic obstructive pulmonary disease with (acute) exacerbation; E87.1 Hypo-osmolality and hyponatremia; I11.0 Hypertensive heart disease with heart failure; E87.6 Hypokalemia; R00.0 Tachycardia, unspecified; K21.9 Gastro-esophageal reflux disease without esophagitis; R77.8 Other specified abnormalities of plasma proteins; F17.210 Nicotine dependence, cigarettes, uncomplicated; Z86.718 Personal history of other venous thrombosis and embolism; Z22.322 Carrier or suspected carrier of Methicillin resistant Staphylococcus aureus
CPT/HCPCS: 36415; 36600; 71045; 71046; 80048; 80053; 80202; 82375; 82607; 82728; 82746; 82805; 82948; 83050; 83540; 83550; 83605; 83690; 83735; 83880; 84145; 84484; 85025; 85027; 85046; 85610; 85730; 86140; 87040; 87081; 87636; 93005; 94618; 94640; 96374; 97110; 97116; 97161; 97165; 97530; 97535; 99285; A9270; J0248; J0456; J0692; J1100; J1650; J1940; J2930; J3370; J3475; J8540

== ENCOUNTER 2022-09-15 07:27 | Inpatient (IN) | payer MEDICARE, MEDICAID, SELFPAY ==
[2022-09-15] VITALS (45 sets, daily range): BP systolic 117–146; BP diastolic 68–101; PULSE 20–134; RESP 18–34; TEMP 36.6–36.7; O2SAT 95–100; BMI 25.7
--- NOTE | ~2022-09-15 | XR_ITS ---
EXAMINATION: XR chest 1V portable DATE: 09/15/2022 07:59 INDICATION: Shortness of breath. Upper back pain. TECHNIQUE: A single frontal view of the chest was obtained. COMPARISON: Chest single view 09/01/2022, chest CT 08/23/2022 FINDINGS: The patient is rotated to his left. There are lucencies and interstitial opacities in the l ungs, consistent with emphysema. No pleural effusion or pneumothorax. The heart size is normal. There are old healed rib fractures bilaterally. IMPRESSION: 1. Emphysema. Reviewed, dictated and finalized at location A. IMPRESSION: 1. Emphysema.
--- NOTE | ~2022-09-15 | CT_ITS ---
EXAMINATION: CTA chest PE protocol DATE: 09/15/2022 09:59 CDT INDICATION: Covid infection. COPD. Shortness of breath TECHNIQUE: Computed tomographic angiography (CTA) of the chest was performed with 100 mL Omnipaque-35 0 intravenous contrast. The dose-length product was 538.65 mGy-cm. Maximum intensity projection 3D-re constructions of the aorta and other arteries were constructed by the technologist on a separate work station. COMPARISON: CT dated 08/23/2022. FINDINGS: Study limited by motion artifact and contrast bolus timing no large central pulmonary embol ism. There is atherosclerosis of the aorta and coronary arteries. Heart size normal. No significant p leural or pericardial effusion. No thoracic lymphadenopathy. No endobronchial lesions. No focal airsp brissa disease. No endobronchial lesions. No pneumothorax. Evaluation of pulmonary nodules limited by mo tion artifact. Moderate thoracic spondylosis.. IMPRESSION: 1. No evidence for pulmonary embolism. Limited examination. 2: No acute cardiopulmonary disease. Reviewed, dictated and finalized at location B.
--- NOTE | 2022-09-15 07:39 | ECG_ITS ---
Measurements Intervals [place] Rate: 128 P: 46 CA: 167 QRS: 123 QRSD: 113 T: 31 QT: 311 QTc: 454 Interpretive Statements SINUS TACHYCARDIA VENTRICULAR PREMATURE COMPLEXES INTRAVENTRICULAR CONDUCTION DELAY CANNOT RULE OUT SEPTAL INFARCT, AGE INDETERMINATE BORDERLINE ST-T WAVE ABNORMALITY- INFERIOR LEADS BASELINE ARTIFACT- II, III, AVR, AVL, AVF, V1, V3, V6 ABNORMAL ECG COMPARED TO ECG 08/27/2022 03:28:00 NO SIGNIFICANT CHANGES Electronically Signed On 09-15-2022 8:03:12 CDT by Junior Adkins D.O.
--- NOTE | 2022-09-15 08:00 | ED.BACK ---
HPI - Back Pain/Injury General Chief Complaint: Back Pain/Injury Stated Complaint: BACK PAIN Time Seen by Provider: 09/15/22 07:36 History of Present Illness HPI Narrative: 62-year-old male presented the emergency department for evaluation of worsening shortness of breath. Patient has been drinking alcohol and staying in a motel room. Patient reports he does have history of COPD. Patient presents to ED complaining of worsening shortness of breath. Patient states his respiratory issues are due to her history of long COVID. Patient is a smoker. Patient reports he normally does not have an O2 requirement. Patient was on 4 L of oxygen by nasal cannula upon arrival to the ED per EMS Related Data Home Medications Medication Instructions Recorded Confirmed citalopram 20 mg tablet 20 mg PO DAILY 06/18/22 08/27/22 cyclobenzaprine 10 mg tablet 10 mg PRN 06/18/22 08/27/22 famotidine 40 mg tablet 10 mg PO HS 06/18/22 08/27/22 fluticasone 250 mcg-salmeterol 50 1 inh inhalation BID 06/18/22 08/27/22 mcg/dose blistr powdr for inhalation (Advair Diskus) folic acid 1 mg tablet 1 mg PO DAILY 06/18/22 08/27/22 furosemide 80 mg tablet 80 mg PO DAILY 06/18/22 08/27/22 losartan 50 mg tablet 25 mg PO BID 06/18/22 08/27/22 multivitamin-iron 9 mg-folic acid 1 tablet PO DAILY 06/18/22 08/27/22 400 mcg-calcium and minerals tablet (Thera-M) potassium chloride 20 mEq 20 meq PO DAILY 06/18/22 08/27/22 tablet,extended release propranolol 20 mg tablet 20 mg PO DAILY 06/18/22 08/27/22 simvastatin 40 mg tablet 40 mg PO HS 06/18/22 08/27/22 thiamine HCl (vitamin B1) 100 mg 100 mg PO DAILY 06/18/22 08/27/22 tablet tiotropium bromide 2.5 2 inh inhalation DAILY 06/18/22 08/27/22 mcg/actuation mist for inhalation (Spiriva Respimat) trazodone 100 mg tablet 100 mg PO HS 06/18/22 08/27/22 omeprazole 20 mg capsule,delayed 20 mg PO DAILY 08/27/22 08/27/22 release Allergies Allergy/AdvReac Type Severity Reaction Status Date / Time No Known Allergies Allergy Mild Verified 09/15/22 07:39 Review of Systems Review of Systems: All systems reviewed & are unremarkable except as noted in HPI and below PMFSH Past Medical History Medical History (Updated 09/15/22 @ 18:22 by Gisela Todd PA-C) Chronic obstructive pulmonary disease Deep venous thrombosis Heart failure of unknown type Hyperlipidemia Hypertension Tobacco abuse Surgical History Surgical History History of dental surgery Family History Family History Other Diabetes mellitus Family history of arthritis Family history of mental disorder Family history of seizure disorder Hypertension Social History Social History Social History: Surrogate medical decision maker: None. Code status: Full code. Smoking packs per day: 0.4 Smoking cigarettes per day: 8.0 Years smoked: 40 Smoking pack-years: 16.00 Smoking status: Current every day smoker Tobacco type: cigarettes Smoking end date: 07/09/22 Alcohol intake: current Drinks per week: 9 Alcohol use details: Social alcohol in moderation. Substance use: never Substance use type: marijuana Other substance usage details: 1 5th of vodka per week Lack of Transportation: No Lack of Food: Never True Current Housing: I Have Housing Concerned About Future Housing: No Difficulty Paying Gas/Electric Bills: No Difficulty Paying for Meds: No Currently Unemployed: No Education: High School Diploma/GED Difficulty w/ Childcare or Family Care: No Additional living arrangements comments: Lives in [place]. Additional occupation/education comments: Disabled. Spiritual care concerns: No Exam Narrative: APPEARANCE: Ill-appearing HEAD: normocephalic, atraumatic. EYES: PERRLA/EOMI, conjunctivae c
[2022-09-15] MEDS: SODIUM CHLORIDE 0.9% IV 1,000 ML 999 ML IV CONT (08:03)
[2022-09-15] MEDS: methylPREDNISolone SOD SUCC 125 MG VIAL IV PUSH (08:03)
[2022-09-15 08:06] LABS: Basophils Absolute Auto 0.1 K/mm3 (0.0-0.1); Basophils Percent Auto 0.5 % (0.2-1.2); Eosinophils Percent Auto 0.1 % (0-4.4); Hematocrit 35.2 % (42.0-52.0); Hemoglobin 12.1 g/dL (14.0-18.0); Immature Granulocyte Absolute 0.08 K/mm3 (0.00-0.031); Immature Granulocyte Percent A 0.6 % (0-0.5); Lymphocytes Absolute Auto 2.25 K/mm3 (0.9-3.2); Lymphocytes Percent Auto 16.1 % (18.3-44.2); Mean Corpuscular HGB Conc 34.4 g/dl (32-36); Mean Corpuscular Volume 101.7 fl (80-100); Mean Platelet Volume 8.8 fl (7.4-10.4); Monocytes Absolute Auto 0.8 K/mm3 (0.1-0.6); Monocytes Percent Auto 5.7 % (2.6-8.5); Neutrophils Absolute Auto 10.8 K/mm3 (1.3-6.7); Platelet Count Result 346 k/mm3 (150-375); Red Blood Count 3.46 M/mm3 (4.6-6.20); Red Cell Distribution Width 14.6 % (11.5-14.5)
[2022-09-15] MEDS: THIAMINE HCL 200 MG/2 ML VIAL 100 MG IV PUSH (08:17)
[2022-09-15 08:18] LABS: Alveolar/Arterial O2 Gradient 76.7 mmHg; Base Excess ABG -1.9 mEq/l (+/-2.0); Carboxyhemoglobin 1.9 % THb (0-2.0); Fractional Inspired Oxygen 35 %; Methemoglobin ABG 0.4 %THb (0-1.5); Oxygen Saturation ABG 97.7 % (95.0-100.0); Oxyhemoglobin 94.8 % THb (90.0-100.0); PCO2 ABG 51.3 mmHg (35.0-45.0); PO2 ABG 113.2 mmHg (80.0-100.0); PO2 FiO2 Ratio Arterial Blood 3.23 %; Reduced Hemoglobin 2.9 %THb (0-5.0); Total Hemoglobin 12.6 g/dL (12.0-18.0); pH ABG 7.305 (7.350-7.450)
[2022-09-15] MEDS: LEVALBUTEROL NEB 1.25 MG/3 ML 2.5 MG INHALATION (08:18)
[2022-09-15 08:20] LABS: Device NON-INVASIVE VENT; Modified Allen's Test Pass; Non-Invasive Expiratory Pressure 7 CMH2O; Non-Invasive Inspiratory Pressure 14 CMH2O; Non-Invasive Vent Rate 18 /MIN; Site Drawn RIGHT RADIAL
--- NOTE | 2022-09-15 08:38 | PC.NURSE ---
Pt refuses to lie on his back and frequently takes bipap mask off.
[2022-09-15 08:42] LABS: Influenza A QL RT-PCR Negative (Negative); Influenza B QL RT-PCR Negative (Negative); RSV RNA, RT-PCR Negative (Negative); SARS-CoV-2 RNA PCR Positive (Negative)
[2022-09-15 09:08] LABS: Alanine Aminotransferase 28 U/L (6-50); Alkaline Phosphatase 122 U/L (38-126); Anion Gap 10 mmol/L (8-16); Aspartate Amino Transferase 49 U/L (17-59); Bilirubin,Total 0.4 mg/dL (0.2-1.3); Blood Urea Nitrogen 14 mg/dL (9-20); Calcium 7.2 mg/dL (8.4-10.2); Carbon Dioxide 24 mmol/L (22-30); Chloride 94 mmol/L (98-107); Estimated CRCL calculation 73 ml/min; Estimated Glomerular Filt Rate > 60; Glucose 75 mg/dL (65-110); Potassium 3.3 mmol/L (3.4-5.0); Sodium 128 mmol/L (137-145)
--- NOTE | 2022-09-15 09:28 | PC.NURSE ---
Pt continues to wear bipap after reapplying mask multiple times. 02 placed per NC at 4l.
[2022-09-15 09:32] LABS: Ethanol 299 mg/dL (<10)
[2022-09-15] MEDS: POTASSIUM CHLORIDE 20 MEQ PACKET (FOR LIQUID) 40 MEQ PO (09:55)
[2022-09-15 10:27] LABS: Alveolar/Arterial O2 Gradient 119.3 mmHg; Base Excess ABG -3.3 mEq/l (+/-2.0); Fractional Inspired Oxygen 36 %; HCO3 ABG 23.6 mEq/l (22.0-26.0); Oxygen Content ABG 16.5 %vol (16.0-22.0); Oxygen Saturation ABG 94.3 % (95.0-100.0); Oxyhemoglobin 91.6 % THb (90.0-100.0); PCO2 ABG 50.2 mmHg (35.0-45.0); PO2 ABG 79.2 mmHg (80.0-100.0); Total Hemoglobin 12.8 g/dL (12.0-18.0)
[2022-09-15 10:28] LABS: Device NASAL CANNULA; Modified Allen's Test Pass; Site Drawn RIGHT RADIAL
[2022-09-15] MEDS: LEVALBUTEROL NEB 1.25 MG/3 ML 0.63 MG INHALATION ×2 (14:15→20:30)
[2022-09-15] MEDS: methylPREDNISolone SOD SUCC 125 MG VIAL 60 MG IV PUSH ×2 (15:23→18:54)
--- NOTE | 2022-09-15 18:08 | PM.IMHP ---
H&P: HPI History of Present Illness Date/Time: 09/15/22 15:00 Chief Complaint: Shortness of breath and back pain. Narrative: This is a 62-year-old male smoker with history of daily alcohol use, hypertension, dyslipidemia, congestive heart failure, DVT and PE, COPD, and anxiety who presented to the emergency department via EMS from a local motel for evaluation of shortness of breath and back pain. He is known to the hospitalist service from a recent admission earlier this month with COPD exacerbation, congestive heart failure, and COVID-19. He has not been feeling well for several days with body aches, cough productive of clear phlegm, nausea, dry heaves, diarrhea, and mild shortness of breath. He has gotten so weak that he has had a couple of falls and affect EMS was called for lift assist last night. He apparently declined transport at that time but reconsider this morning. He denies fever, headache, vertigo, focal weakness, paresthesias, syncope, near syncope, head trauma, sinus congestion, sore throat, chest pain, pleuritic pain, and dysuria. On EMS arrival his SpO2 was in the low 80s and he was placed on 4 L. He has been afebrile since arrival to the ED. Blood pressures have been stable. He has been persistently tachycardic and tachypneic. He continues to test positive for COVID. CT of the chest showed no evidence of pulmonary embolism or acute cardiopulmonary disease. ABG showed a pH of 7.290, pCO2 50.2, PO2 79.2, and a bicarb of 23.6. He has been started on BiPAP with improvement in his most recent ABG. Labs were significant for a WBC count of 14.0, stable anemia, sodium 128, potassium 3.3, BUN 14, creatinine 0.90, normal LFTs, total protein 5.0, albumin 3.0, ethyl alcohol 299. In the ED he was given a nebulizer treatment, Solu-Medrol, IV thiamine, normal saline, and potassium. He is being admitted in this setting for respiratory failure with hypoxia and hypercarbia as well as COPD exacerbation, dehydration, and alcohol intoxication. Review of Systems Review of Systems: Twelve systems were reviewed. He denies history of alcohol withdrawal seizures. No anxiety, shakes, sweats, or hallucinations. He reported to the nurse once he was admitted to the floor that he was quite depressed and had thoughts of suicide with plans to overdose on medication and alcohol. He denies prior suicide attempt. Except as documented, all other systems were reviewed and are negative. [facility] Past Medical History Medical History (Updated 09/15/22 @ 22:13 by Gisela Todd PA-C) Alcohol abuse Anxiety Chronic obstructive pulmonary disease Deep venous thrombosis Heart failure with preserved ejection fraction Hyperlipidemia Hypertension Tobacco abuse Surgical History Surgical History History of dental surgery Family History Family History Other Diabetes mellitus Family history of arthritis Family history of mental disorder Family history of seizure disorder Hypertension Social History Social History (Updated 09/15/22 @ 22:04 by Gisela Todd PA-C) Social History: Surrogate medical decision maker: None. Code status: Full code. Smoking packs per day: 0.5 Smoking cigarettes per day: 10.0 Years smoked: 40 Smoking pack-years: 20.00 Smoking status: Current every day smoker Tobacco type: cigarettes Smoking end date: 07/09/22 Alcohol intake: current Drinks per week: 21 Alcohol use details: 3 alcoholic drinks a day containing 1.5 shots in each. Substance use: never Substance use type: marijuana Lack of Transportation: No Lack of Food: Never True Current Housing: I Have Housing Concerned About Future Housing: No Difficulty Paying Gas/Electric Bills: No Difficulty Paying for Meds: No Currently Unemployed: No Education: Bachelor's Degree Difficulty w/ Childcare or Family Care: No
[2022-09-15 18:34] LABS: Alveolar/Arterial O2 Gradient 101.9 mmHg; Base Excess ABG -4.1 mEq/l (+/-2.0); Carboxyhemoglobin 0.3 % THb (0-2.0); Fractional Inspired Oxygen 32 %; HCO3 ABG 21.3 mEq/l (22.0-26.0); Methemoglobin ABG 0.3 %THb (0-1.5); Oxygen Content ABG 17.5 %vol (16.0-22.0); Oxygen Saturation ABG 95.1 % (95.0-100.0); Oxyhemoglobin 93.9 % THb (90.0-100.0); PCO2 ABG 40.4 mmHg (35.0-45.0); PO2 FiO2 Ratio Arterial Blood 2.47 %; Reduced Hemoglobin 5.5 %THb (0-5.0); Total Hemoglobin 13.2 g/dL (12.0-18.0)
[2022-09-15 18:36] LABS: Device NASAL CANNULA; Modified Allen's Test Pass; Site Drawn RIGHT RADIAL
--- NOTE | 2022-09-15 19:24 | ADMGEN ---
This patient, Rafal Childers, was admitted to IMU Room 207-01 at 1924. Patient/family oriented to hospital policies and general routines including ID bracelet, bed and alarms, visiting hours, pain management, procedures, bathroom and other care routines, personal items, smoking policy, room service/diet, and visiting hours. Information on how to activate the Rapid Response Team has been discussed. Patient/Family are encouraged to report perceived risks to care and to ask questions if they do not understand what they are told or what they should do.
[2022-09-15 19:27] LABS: Anion Gap 14 mmol/L (8-16); Blood Urea Nitrogen 10 mg/dL (9-20); Calcium 7.7 mg/dL (8.4-10.2); Carbon Dioxide 18 mmol/L (22-30); Chloride 98 mmol/L (98-107); Estimated CRCL calculation 73 ml/min; Estimated Glomerular Filt Rate > 60; Glucose 92 mg/dL (65-110); Magnesium 1.3 mg/dL (1.6-2.3); Potassium 3.7 mmol/L (3.4-5.0); Sodium 130 mmol/L (137-145)
--- NOTE | 2022-09-15 20:45 | PC.NURSE ---
This patient, Rafal Childers, was transferred to [ICU 2 ] on 09/15/22 at 2046. Personal belongings sent with patient. Report given to [Dominique Ortiz ]. Appropriate documentation sent with patient.
--- NOTE | 2022-09-15 20:58 | PC.NURSE ---
This patient, Rafal Childers, was received from [facility] on 09/15/22 at 2046. Patient/family oriented to unit policies and routines
[2022-09-15] MEDS: SIMVASTATIN 20 MG TABLET 40 MG PO (22:59)
[2022-09-15] MEDS: MAGNESIUM SULFATE 3GM/D5W100ML 3 GM/100 ML BAG IVPB (23:00)
[2022-09-15] MEDS: SODIUM CHLORIDE 0.9% IV 1,000 ML 100 ML IV CONT (23:00)
[2022-09-15] MEDS: LOSARTAN POTASSIUM 25 MG TABLET PO (23:00)
[2022-09-15] MEDS: traZODone HCL 50 MG TABLET 100 MG PO (23:00)
[2022-09-16] VITALS (28 sets, daily range): BP systolic 120–149; BP diastolic 80–101; PULSE 68–137; RESP 18–24; TEMP 36.6–36.8; O2SAT 95–100
[2022-09-16] MEDS: methylPREDNISolone SOD SUCC 125 MG VIAL 60 MG IV PUSH ×2 (00:12→05:37)
[2022-09-16] MEDS: chlordiazePOXIDE (*CRX) 25 MG CAPSULE PO ×5 (00:12→23:04)
[2022-09-16] MEDS: LEVALBUTEROL NEB 1.25 MG/3 ML INHALATION ×4 (03:10→19:30)
[2022-09-16] MEDS: IPRATROPIUM BR 0.02% INH SOLN 0.5 MG/2.5 ML VIAL INHALATION ×5 (03:10→19:30)
[2022-09-16 03:55] LABS: Hematocrit 37.5 % (42.0-52.0); Hemoglobin 12.7 g/dL (14.0-18.0); Mean Corpuscular HGB Conc 33.9 g/dl (32-36); Mean Corpuscular Hemoglobin 34.1 pg (26-34); Mean Corpuscular Volume 100.8 fl (80-100); Mean Platelet Volume 9.3 fl (7.4-10.4); Platelet Count Result 301 k/mm3 (150-375); Red Blood Count 3.72 M/mm3 (4.6-6.20); Red Cell Distribution Width 14.5 % (11.5-14.5)
[2022-09-16 04:09] LABS: Anion Gap 7 mmol/L (8-16); Blood Urea Nitrogen 12 mg/dL (9-20); Calcium 7.8 mg/dL (8.4-10.2); Carbon Dioxide 27 mmol/L (22-30); Chloride 95 mmol/L (98-107); Estimated CRCL calculation 73 ml/min; Estimated Glomerular Filt Rate > 60; Glucose 114 mg/dL (65-110); Magnesium 2.5 mg/dL (1.6-2.3); Potassium 3.6 mmol/L (3.4-5.0); Sodium 129 mmol/L (137-145)
[2022-09-16 04:56] LABS: Thyroid Stimulating Hormone Reflex 0.166 uIU/mL (0.465-4.68)
[2022-09-16 06:48] LABS: Free T4 Free Thyroxine Reflex 0.97 ng/dL (0.78-2.19)
[2022-09-16] MEDS: FLUTICASONE/SALMETEROL 115-21 MCG INHALER 1 PUFF 2 PUFF INHALATION ×2 (07:15→19:31)
[2022-09-16] MEDS: UMECLIDINIUM BROMIDE 62.5 MCG ELLIPTA 1 PUFF INHALATION (07:15)
[2022-09-16 07:36] LABS: Total Triiodothyronine (T3) 0.73 NG/ML (0.97-1.69)
[2022-09-16] MEDS: CITALOPRAM HYDROBROMIDE 20 MG TABLET PO (10:41)
[2022-09-16] MEDS: POTASSIUM CHLORIDE 20 MEQ TABLET.ER PO (10:41)
[2022-09-16] MEDS: PANTOPRAZOLE 40 MG TABLET PO (10:41)
[2022-09-16] MEDS: THERAPEUTIC MULTIVITAMINS/MINERALS TAB (*BKC) 1 TABLET PO (10:41)
[2022-09-16] MEDS: PROPRANOLOL HCL 20 MG TABLET PO ×2 (10:42→20:10)
[2022-09-16 11:45] LABS: Ethanol < 10 mg/dL (<10)
--- NOTE | 2022-09-16 12:05 | PM.IMPN ---
Progress Note: A&P Assessment and Plan (1) Acute respiratory failure with hypoxia and hypercapnia: Code(s): J96.01 - Acute respiratory failure with hypoxia; J96.02 - Acute respiratory failure with hypercapnia Status: Acute Assessment and Plan: He likely has chronic respiratory failure. Attempted apnea link last hospitalization was unsuccessful due to 2 short of a time period for adequate evaluation. He has underlying COPD and may very well have an oxygen requirement. Attempt apnea link during this hospitalization. Will need a home O2 study prior to discharge (2) Alcohol intoxication: Code(s): F10.929 - Alcohol use, unspecified with intoxication, unspecified Status: Acute Assessment and Plan: Initiate CIWA protocol. Start thiamine and folic acid supplementation. (3) Suicidal ideation: Code(s): R45.851 - Suicidal ideations Status: Acute Assessment and Plan: Patient reports no suicidal ideation to me (4) COPD exacerbation: Code(s): J44.1 - Chronic obstructive pulmonary disease with (acute) exacerbation Status: Acute Assessment and Plan: Continue scheduled bronchodilators and oral prednisone and azithromycin. (5) Generalized weakness: Code(s): R53.1 - Weakness Status: Acute Assessment and Plan: Secondary to alcohol intoxication, dehydration, and deconditioning. Initiate fall precautions. (6) Heart failure with preserved ejection fraction: Code(s): I50.30 - Unspecified diastolic (congestive) heart failure Status: Acute Assessment and Plan: He is clinically compensated. Monitor volume status closely while cautiously hydrating. (7) COVID-19: Code(s): U07.1 - COVID-19 Status: Acute Assessment and Plan: He continues to test positive for COVID, no need for isolation as he 1st tested positive on 08/23/2022. Subjective Date/time seen: 09/16/22 12:05 Interval history: No chest pain, shortness of breath. Patient does not endorse any suicidal ideation at this time Review of Systems Review of Systems: Twelve systems were reviewed. He denies history of alcohol withdrawal seizures. No anxiety, shakes, sweats, or hallucinations. He reported to the nurse once he was admitted to the floor that he was quite depressed and had thoughts of suicide with plans to overdose on medication and alcohol. He denies prior suicide attempt. Except as documented, all other systems were reviewed and are negative. Exam Narrative: General: Moderately ill-appearing gentleman HEENT: PERRL, EOMI. Sclera anicteric. Dry mucous membranes. Neck: Supple. Respiratory: Patient was initially placed on BiPAP but to get off for unclear reasons. He is mildly tachypneic and has some conversational dyspnea but does not appear to be in acute respiratory distress at this time. Lung sounds are a bit diminished with end-expiratory wheezing. Cardiovascular: Tachycardic with normal S1-S2. Gastrointestinal: Abdomen is soft, nontender, and nondistended with positive bowel sounds. Skin: Warm and dry. Bruising throughout the upper extremities, on the right flank, and right buttock. There is an abrasion on the right buttock as well. Extremities: No cyanosis, clubbing, or edema. Radial and pedal pulses intact. Neurological: Alert and oriented. Cranial nerves 2-12 are grossly intact. No gross focal deficits. Psychiatric: Cooperative. Appropriate mood. Odd affect. Objective Data Vital Signs Vital Signs: Vital Signs - 24 hr 09/15/22 12:16 09/15/22 12:31 09/15/22 12:46 Temperature Pulse Rate 116 H 118 H 119 H Pulse Rate [Bilateral Pedal (Dorsalis Pedis)] Respiratory Rate 24 H 24 H 22 H Blood Pressure 120/74 117/80 122/80 Pulse Oximetry 100 100 Oxygen Delivery Oxygen Flow Rate 09/15/22 13:01 09/15/22 13:16 09/15/22 14:10 Temperature Pulse Rate 115 H 119 H 119 H Pulse Rate [Bila
[2022-09-16] MEDS: FOLIC ACID 1 MG TABLET PO (12:47)
[2022-09-16] MEDS: THIAMINE HCL 100 MG TABLET PO (12:47)
[2022-09-16] MEDS: LOSARTAN POTASSIUM 25 MG TABLET PO ×2 (13:44→17:33)
--- NOTE | 2022-09-16 14:36 | PC.NURSE ---
Patient denies suicidal ideation, stated that he was feeling down a few weeks ago , but those feelings have since passed . Nurse assessment made using the [place] Suicide Severity scale and the results were no risk indicated.
[2022-09-16] MEDS: SIMVASTATIN 20 MG TABLET 40 MG PO (20:09)
[2022-09-16] MEDS: traZODone HCL 50 MG TABLET 100 MG PO (20:10)
[2022-09-17] VITALS (27 sets, daily range): BP systolic 97–129; BP diastolic 59–87; PULSE 66–91; RESP 16–20; TEMP 36.3–36.6; O2SAT 88–100
[2022-09-17] MEDS: IPRATROPIUM BR 0.02% INH SOLN 0.5 MG/2.5 ML VIAL INHALATION ×5 (01:09→19:37)
[2022-09-17] MEDS: LEVALBUTEROL NEB 1.25 MG/3 ML INHALATION ×4 (01:09→19:37)
[2022-09-17] MEDS: chlordiazePOXIDE (*CRX) 25 MG CAPSULE PO ×3 (05:22→17:04)
[2022-09-17] MEDS: FLUTICASONE/SALMETEROL 115-21 MCG INHALER 1 PUFF 2 PUFF INHALATION ×2 (07:42→19:37)
[2022-09-17] MEDS: predniSONE 20 MG TABLET 40 MG PO (08:17)
[2022-09-17] MEDS: FOLIC ACID 1 MG TABLET PO (08:18)
[2022-09-17] MEDS: PANTOPRAZOLE 40 MG TABLET PO (08:18)
[2022-09-17] MEDS: THERAPEUTIC MULTIVITAMINS/MINERALS TAB (*BKC) 1 TABLET PO (08:19)
[2022-09-17] MEDS: LOSARTAN POTASSIUM 25 MG TABLET PO ×2 (08:20→17:05)
[2022-09-17] MEDS: PROPRANOLOL HCL 20 MG TABLET PO ×2 (08:20→20:05)
[2022-09-17] MEDS: THIAMINE HCL 100 MG TABLET PO (08:20)
[2022-09-17] MEDS: POTASSIUM CHLORIDE 20 MEQ TABLET.ER PO (08:21)
[2022-09-17] MEDS: CITALOPRAM HYDROBROMIDE 20 MG TABLET PO (08:21)
--- NOTE | 2022-09-17 10:40 | PM.IMPN ---
Progress Note: A&P Assessment and Plan (1) Acute respiratory failure with hypoxia and hypercapnia: Code(s): J96.01 - Acute respiratory failure with hypoxia; J96.02 - Acute respiratory failure with hypercapnia Status: Acute Assessment and Plan: Patient currently on Humira with normal oxygen saturation. attempted apnea link last hospitalization was unsuccessful due to 2 short of a time period for adequate evaluation. He has underlying COPD and may very well have an oxygen requirement. Attempt apnea link during this hospitalization. Incentive spirometer (2) Alcohol intoxication: Code(s): F10.929 - Alcohol use, unspecified with intoxication, unspecified Status: Acute Assessment and Plan: [facility] protocol. thiamine and folic acid supplementation. (3) Suicidal ideation: Code(s): R45.851 - Suicidal ideations Status: Acute Assessment and Plan: Patient reports no suicidal ideation to me (4) COPD exacerbation: Code(s): J44.1 - Chronic obstructive pulmonary disease with (acute) exacerbation Status: Acute Assessment and Plan: Continue scheduled bronchodilators and oral prednisone and azithromycin. (5) Generalized weakness: Code(s): R53.1 - Weakness Status: Acute Assessment and Plan: Secondary to alcohol intoxication, dehydration, and deconditioning. Initiate fall precautions. Will order PT and OT (6) Heart failure with preserved ejection fraction: Code(s): I50.30 - Unspecified diastolic (congestive) heart failure Status: Acute Assessment and Plan: He is clinically compensated. Monitor volume status closely while cautiously hydrating. (7) COVID-19: Code(s): U07.1 - COVID-19 Status: Acute Assessment and Plan: He continues to test positive for COVID, no need for isolation as he 1st tested positive on 08/23/2022. Subjective Date/time seen: 09/17/22 10:40 Interval history: Patient states he feels like he is suffocating. He is not taking deep breaths. He is on room air with oxygen saturation 94-95% Review of Systems Review of Systems: All systems reviewed & are unremarkable except as noted in HPI and below Exam Narrative: General: Moderately ill-appearing gentleman HEENT: PERRL, EOMI. Sclera anicteric. Dry mucous membranes. Neck: Supple. Respiratory: Patient was initially placed on BiPAP but to get off for unclear reasons. He is mildly tachypneic and has some conversational dyspnea but does not appear to be in acute respiratory distress at this time. Lung sounds are a bit diminished with end-expiratory wheezing. Cardiovascular: Tachycardic with normal S1-S2. Gastrointestinal: Abdomen is soft, nontender, and nondistended with positive bowel sounds. Skin: Warm and dry. Bruising throughout the upper extremities, on the right flank, and right buttock. There is an abrasion on the right buttock as well. Extremities: No cyanosis, clubbing, or edema. Radial and pedal pulses intact. Neurological: Alert and oriented. Cranial nerves 2-12 are grossly intact. No gross focal deficits. Psychiatric: Cooperative. Appropriate mood. Odd affect. Objective Data Vital Signs Vital Signs: Vital Signs - 24 hr 09/16/22 10:42 09/16/22 12:00 09/16/22 13:15 Temperature 98.0 F Pulse Rate 122 H 74 75 Pulse Rate [Bilateral Pedal (Dorsalis Pedis)] Respiratory Rate 18 18 Blood Pressure 138/97 H Pulse Oximetry 99 Oxygen Delivery Oxygen Flow Rate Fraction of Inspired Oxygen 09/16/22 13:25 09/16/22 12:00 09/16/22 12:00 Temperature Pulse Rate 82 Pulse Rate [Bilateral Pedal (Dorsalis Pedis)] 72 Respiratory Rate 18 Blood Pressure Pulse Oximetry 95 Oxygen Delivery Nasal Cannula Oxygen Flow Rate 3 Fraction of Inspired Oxygen 09/16/22 16:00 09/16/22 17:05 09/16/22 17:10 Temperature 98 F Pulse Rate 68 78 79 Pulse Rate [Bilateral Pedal
--- NOTE | 2022-09-17 13:40 | PCPTNOTE ---
On 09/17/22, the student, [Jazmyn Hoffman], provided care and completed [facility] documentation on this patient. I have reviewed the student's documentation and agree with the findings.
[2022-09-17] MEDS: ACETAMINOPHEN 325 MG TABLET 650 MG PO (17:04)
[2022-09-17] MEDS: LIDOCAINE 5% PATCH 1 PATCH TRANSDERM (17:04)
[2022-09-17] MEDS: SIMVASTATIN 20 MG TABLET 40 MG PO (20:04)
[2022-09-17] MEDS: traZODone HCL 50 MG TABLET 100 MG PO (20:05)
[2022-09-18] VITALS (23 sets, daily range): BP systolic 107–143; BP diastolic 58–91; PULSE 71–94; RESP 18–22; TEMP 36.3–36.5; O2SAT 89–100
[2022-09-18] MEDS: IPRATROPIUM BR 0.02% INH SOLN 0.5 MG/2.5 ML VIAL INHALATION ×4 (00:29→20:24)
[2022-09-18] MEDS: chlordiazePOXIDE (*CRX) 25 MG CAPSULE PO ×4 (01:06→22:36)
[2022-09-18] MEDS: LEVALBUTEROL NEB 1.25 MG/3 ML INHALATION ×3 (04:29→20:24)
[2022-09-18] MEDS: predniSONE 20 MG TABLET 40 MG PO (08:24)
[2022-09-18] MEDS: CITALOPRAM HYDROBROMIDE 20 MG TABLET PO (08:25)
[2022-09-18] MEDS: FOLIC ACID 1 MG TABLET PO (08:25)
[2022-09-18] MEDS: LOSARTAN POTASSIUM 25 MG TABLET PO ×2 (08:25→17:45)
[2022-09-18] MEDS: LIDOCAINE 5% PATCH 1 PATCH TRANSDERM (08:25)
[2022-09-18] MEDS: THERAPEUTIC MULTIVITAMINS/MINERALS TAB (*BKC) 1 TABLET PO (08:25)
[2022-09-18] MEDS: PANTOPRAZOLE 40 MG TABLET PO (08:25)
[2022-09-18] MEDS: PROPRANOLOL HCL 20 MG TABLET PO ×2 (08:26→20:50)
[2022-09-18] MEDS: POTASSIUM CHLORIDE 20 MEQ TABLET.ER PO (08:26)
[2022-09-18] MEDS: THIAMINE HCL 100 MG TABLET PO (08:28)
[2022-09-18] MEDS: ACETAMINOPHEN 325 MG TABLET 650 MG PO (08:36)
[2022-09-18 09:10] LABS: Anion Gap -1 mmol/L (8-16); Blood Urea Nitrogen 17 mg/dL (9-20); Calcium 8.4 mg/dL (8.4-10.2); Carbon Dioxide 37 mmol/L (22-30); Chloride 96 mmol/L (98-107); Estimated CRCL calculation 82 ml/min; Estimated Glomerular Filt Rate > 60; Glucose 113 mg/dL (65-110); Potassium 4.8 mmol/L (3.4-5.0); Sodium 132 mmol/L (137-145)
--- NOTE | 2022-09-18 12:24 | PC.NURSE ---
Presiding Steward went through Erlinda Dawson's ([employer] charting on patient and agree with assessment findings.
--- NOTE | 2022-09-18 15:54 | PM.IMPN ---
Progress Note: A&P Assessment and Plan (1) Acute respiratory failure with hypoxia and hypercapnia: Code(s): J96.01 - Acute respiratory failure with hypoxia; J96.02 - Acute respiratory failure with hypercapnia Status: Acute Assessment and Plan: continue steroids and bronchodilators and incentive spirometry 09/18 receiving oxygen at 2 liters/minute by nasal cannula 09/18 ApneaLink ordered for evening and home oxygen evaluation for the morning (2) Alcohol intoxication: Code(s): F10.929 - Alcohol use, unspecified with intoxication, unspecified Status: Acute Assessment and Plan: [facility] protocol. Thiamine and folic acid supplementation. No signs of withdrawal 09/18 reduce Librium due to excessive drowsiness and consider d/c after 09/19 (3) Suicidal ideation: Code(s): R45.851 - Suicidal ideations Status: Acute Assessment and Plan: 09/18 no thoughts of suicide expressed (4) COPD exacerbation: Code(s): J44.1 - Chronic obstructive pulmonary disease with (acute) exacerbation Status: Acute Assessment and Plan: Continue scheduled bronchodilators and oral prednisone (5) Generalized weakness: Code(s): R53.1 - Weakness Status: Acute Assessment and Plan: Secondary to alcohol intoxication, dehydration, and deconditioning. Fall precautions. PT and OT (6) Heart failure with preserved ejection fraction: Code(s): I50.30 - Unspecified diastolic (congestive) heart failure Status: Acute Assessment and Plan: He is clinically compensated. Monitor volume status (7) COVID-19: Code(s): U07.1 - COVID-19 Status: Acute Assessment and Plan: He continues to test positive for COVID, no need for isolation as he 1st tested positive on 08/23/2022. (8) Mood disorder: Code(s): F39 - Unspecified mood [affective] disorder Status: Acute Subjective Date/time seen: 09/18/22 15:54 Interval history: Tired. Short of breath with ADLs. Never completed sleep study. Dozes easily. Appetite fairly good. Denied chest pain. Denied edema. Denied GI or issues of the no bowel movement for 2 days. Denied abnormal bleeding. Denied focal weakness. States his health has been declining for the past 2 years. Lives alone. Has no family to help out. Still smokes a few cigarettes per day. Drinks a few times a week and smokes marijuana a few times a week. Denies using these to excess. Currently living in a hotel because there is some work being done on his home in [facility]. Exam Narrative: Obese elderly gentleman in no acute distress. Alert oriented. Cooperative. Blunted affect. Pharyngeal mucosa pink and intact, pupils equal round reactive to light neck without JVD chest with increased AP diameter and decreased breath sounds, mildly tachypneic heart distant heart sounds rate regular extremities without edema abdomen protuberant but soft with good bowel sounds and no palpable mass musculoskeletal without gross deformities to visual inspection neurologic cranial nerves symmetric to visual inspection Objective Data Vital Signs Vital Signs: Vital Signs - 24 hr 09/17/22 16:18 09/17/22 16:23 09/17/22 16:31 Temperature Pulse Rate 73 78 Respiratory Rate 20 20 Blood Pressure Pulse Oximetry 97 Oxygen Delivery Nasal Cannula Oxygen Flow Rate 3 Fraction of Inspired Oxygen 09/17/22 17:30 09/17/22 17:34 09/17/22 17:38 Temperature Pulse Rate 77 83 89 Respiratory Rate Blood Pressure 97/59 L 116/76 110/65 Pulse Oximetry Oxygen Delivery Oxygen Flow Rate Fraction of Inspired Oxygen 09/17/22 19:38 09/17/22 19:42 09/17/22 19:50 Temperature Pulse Rate 77 78 Respiratory Rate 20 20 Blood Pressure Pulse Oximetry 98 Oxygen Delivery Nasal Cannula Oxygen Flow Rate 2 Fraction of Inspired Oxygen 09/17/22
[2022-09-18] MEDS: FLUTICASONE/SALMETEROL 115-21 MCG INHALER 1 PUFF 2 PUFF INHALATION (20:25)
[2022-09-18] MEDS: SIMVASTATIN 20 MG TABLET 40 MG PO (20:49)
[2022-09-18] MEDS: traZODone HCL 50 MG TABLET 100 MG PO (20:51)
[2022-09-19] VITALS (22 sets, daily range): BP systolic 121–150; BP diastolic 76–88; PULSE 80–98; RESP 18–22; TEMP 36.4–36.9; O2SAT 92–99
[2022-09-19] MEDS: IPRATROPIUM BR 0.02% INH SOLN 0.5 MG/2.5 ML VIAL INHALATION ×4 (04:35→19:29)
[2022-09-19] MEDS: LEVALBUTEROL NEB 1.25 MG/3 ML INHALATION ×4 (04:35→19:29)
[2022-09-19] MEDS: chlordiazePOXIDE (*CRX) 25 MG CAPSULE PO ×3 (05:24→21:17)
[2022-09-19 05:38] LABS: Hematocrit 37.8 % (42.0-52.0); Mean Corpuscular HGB Conc 31.7 g/dl (32-36); Mean Corpuscular Hemoglobin 34.1 pg (26-34); Mean Corpuscular Volume 107.4 fl (80-100); Mean Platelet Volume 9.3 fl (7.4-10.4); Platelet Count Result 248 k/mm3 (150-375); Red Blood Count 3.52 M/mm3 (4.6-6.20); Red Cell Distribution Width 14.3 % (11.5-14.5); White Blood Count 10.4 K/mm3 (4.5-10.0)
[2022-09-19 05:54] LABS: Alanine Aminotransferase 38 U/L (6-50); Albumin Level 3.1 g/dL (3.5-5.1); Alkaline Phosphatase 118 U/L (38-126); Aspartate Amino Transferase 41 U/L (17-59); Bilirubin,Total 0.3 mg/dL (0.2-1.3); Blood Urea Nitrogen 17 mg/dL (9-20); Calcium 8.8 mg/dL (8.4-10.2); Carbon Dioxide > 40 mmol/L (22-30); Chloride 95 mmol/L (98-107); Estimated CRCL calculation 82 ml/min; Estimated Glomerular Filt Rate > 60; Glucose 92 mg/dL (65-110); Potassium 5.1 mmol/L (3.4-5.0); Sodium 132 mmol/L (137-145)
[2022-09-19] MEDS: FLUTICASONE/SALMETEROL 115-21 MCG INHALER 1 PUFF 2 PUFF INHALATION ×2 (07:50→19:29)
[2022-09-19] MEDS: predniSONE 20 MG TABLET 40 MG PO (08:46)
[2022-09-19] MEDS: THIAMINE HCL 100 MG TABLET PO (08:47)
[2022-09-19] MEDS: THERAPEUTIC MULTIVITAMINS/MINERALS TAB (*BKC) 1 TABLET PO (08:47)
[2022-09-19] MEDS: FOLIC ACID 1 MG TABLET PO (08:47)
[2022-09-19] MEDS: CITALOPRAM HYDROBROMIDE 20 MG TABLET PO (08:47)
[2022-09-19] MEDS: PANTOPRAZOLE 40 MG TABLET PO (08:47)
[2022-09-19] MEDS: LOSARTAN POTASSIUM 25 MG TABLET PO ×2 (08:47→17:54)
[2022-09-19] MEDS: PROPRANOLOL HCL 20 MG TABLET PO ×2 (08:48→21:17)
[2022-09-19] MEDS: ACETAMINOPHEN 325 MG TABLET 650 MG PO (08:50)
[2022-09-19] MEDS: LIDOCAINE 5% PATCH 1 PATCH TRANSDERM (08:51)
[2022-09-19] MEDS: UMECLIDINIUM BROMIDE 62.5 MCG ELLIPTA 1 PUFF INHALATION (09:06)
--- NOTE | 2022-09-19 10:10 | PC.NURSE ---
Clinical Business Manager reviewed Erlinda Dawson's ([employer] charting and agrees with assessment findings
[2022-09-19] MEDS: SENNOSIDES 8.6 MG TABLET PO (12:28)
[2022-09-19] MEDS: polyethylene glycoL 3350 17 GM POWD.PACK PO (12:28)
--- NOTE | 2022-09-19 15:14 | PM.IMPN ---
Progress Note: A&P Assessment and Plan (1) Acute respiratory failure with hypoxia and hypercapnia: Code(s): J96.01 - Acute respiratory failure with hypoxia; J96.02 - Acute respiratory failure with hypercapnia Status: Acute Assessment and Plan: continue steroids and bronchodilators and incentive spirometry 09/19 receiving oxygen at 2 liters/minute by nasal cannula (2) Alcohol intoxication: Code(s): F10.929 - Alcohol use, unspecified with intoxication, unspecified Status: Acute Assessment and Plan: [facility] protocol. Thiamine and folic acid supplementation. No signs of withdrawal 09/18 reduce Librium due to excessive drowsiness 09/19 Reduced Librium 25 mg q 6 hrs and d/c after last dose today (3) Suicidal ideation: Code(s): R45.851 - Suicidal ideations Status: Acute Assessment and Plan: 09/18 no thoughts of suicide expressed (4) COPD exacerbation: Code(s): J44.1 - Chronic obstructive pulmonary disease with (acute) exacerbation Status: Acute Assessment and Plan: Continue scheduled bronchodilators and oral prednisone (5) Generalized weakness: Code(s): R53.1 - Weakness Status: Acute Assessment and Plan: Secondary to alcohol intoxication, dehydration, and deconditioning. Fall precautions. PT and OT (6) Heart failure with preserved ejection fraction: Code(s): I50.30 - Unspecified diastolic (congestive) heart failure Status: Acute Assessment and Plan: He is clinically compensated. Monitor volume status (7) COVID-19: Code(s): U07.1 - COVID-19 Status: Acute Assessment and Plan: He continues to test positive for COVID, no need for isolation as he 1st tested positive on 08/23/2022. (8) Mood disorder: Code(s): F39 - Unspecified mood [affective] disorder Status: Acute Assessment and Plan: Will need f/u w/ PCP, possibly psych, tx for AUD Subjective Date/time seen: 09/19/22 15:14 Interval history: Tired. Short of breath with ADLs. ApneaLink done last PM as interpreted as inaccurate, though NL while on cpap. Has used cpap at night for the past 2 years. Using in hospital but was not using while staying in hotel while house was worked on. Supposed to go back to his home upon discharge. Denied chest pain. Denied edema. Denied GI or issues of the no bowel movement for 2 days. Denied abnormal bleeding. Denied focal weakness. States his health has been declining for the past 2 years. Lives alone. Has no family to help out. Still smokes a few cigarettes per day. Drinks a few times a week and smokes marijuana a few times a week. Denies using these to excess. Currently living in a hotel because there is some work being done on his home in [facility]. Review of Systems Review of Systems: All systems reviewed & are unremarkable except as noted in HPI and below Exam Narrative: Obese elderly gentleman in no acute distress. Cooperative. Pharyngeal mucosa pink and intact, pupils equal round reactive to light neck without JVD chest with increased AP diameter and coarse breath sounds, mildly tachypneic heart distant heart sounds rate regular extremities without edema abdomen protuberant but soft with good bowel sounds and no palpable mass musculoskeletal without gross deformities to visual inspection neurologic cranial nerves symmetric to visual inspection psych oriented to person, place, month, year (thought day was Tuesday instead of Tuesday). Blunted affect. Objective Data Vital Signs Vital Signs: Vital Signs - 24 hr 09/18/22 19:34 09/18/22 19:38 09/18/22 19:40 Temperature 97.4 F L 97.7 F 97.6 F Pulse Rate 79 85 94 Respiratory Rate 18 18 18 Blood Pressure 120/76 127/91 H 114/85 Pulse Oximetry 99 100 95 Oxygen Delivery Oxygen Flow Rate 09/18/22 20:27 09/18/22 20:25 09/18/22 20:50 Temperature Pu
[2022-09-19 17:16] LABS: Appearance Urine Clear (Clear); Bilirubin Urine Negative (Negative); Blood Urine Negative (Negative); Color Urine Yellow (Yellow); Glucose Urine UA Negative (Negative); Ketones Urine Negative (Negative); Leukocyte Esterase Ur Negative LEU/UL (Negative); Nitrate Urine Negative (Negative); Protein Urine Negative (Negative); Specific Grav Ur 1.008 (1.001-1.035); Urobilinogen Urine 0.2 mg/dL (<2.0); pH Urine 5.5 (5.0-9.0)
[2022-09-19 17:26] LABS: Add Urine Microscopic? NO
[2022-09-19] MEDS: SIMVASTATIN 20 MG TABLET 40 MG PO (21:17)
[2022-09-19] MEDS: traZODone HCL 50 MG TABLET 100 MG PO (21:17)
[2022-09-20] VITALS (20 sets, daily range): BP systolic 102–134; BP diastolic 68–89; PULSE 68–92; RESP 16–22; TEMP 36.4–36.9; O2SAT 91–100
--- NOTE | 2022-09-20 00:23 | PCRCNOTE ---
Pt was placd on BIPAP for 15 minutes and then wanted the BIPAP taken off.
[2022-09-20] MEDS: IPRATROPIUM BR 0.02% INH SOLN 0.5 MG/2.5 ML VIAL INHALATION ×5 (02:08→20:57)
[2022-09-20] MEDS: LEVALBUTEROL NEB 1.25 MG/3 ML INHALATION ×5 (02:08→20:57)
[2022-09-20] MEDS: UMECLIDINIUM BROMIDE 62.5 MCG ELLIPTA 1 PUFF INHALATION (08:15)
[2022-09-20] MEDS: FLUTICASONE/SALMETEROL 115-21 MCG INHALER 1 PUFF 2 PUFF INHALATION ×2 (08:15→20:58)
[2022-09-20] MEDS: predniSONE 20 MG TABLET 40 MG PO (08:40)
[2022-09-20] MEDS: LOSARTAN POTASSIUM 25 MG TABLET PO ×2 (08:40→16:57)
[2022-09-20] MEDS: SENNOSIDES 8.6 MG TABLET PO (08:41)
[2022-09-20] MEDS: PROPRANOLOL HCL 20 MG TABLET PO ×2 (08:41→20:35)
[2022-09-20] MEDS: CITALOPRAM HYDROBROMIDE 20 MG TABLET PO (08:41)
[2022-09-20] MEDS: THIAMINE HCL 100 MG TABLET PO (08:41)
[2022-09-20] MEDS: FOLIC ACID 1 MG TABLET PO (08:41)
[2022-09-20] MEDS: LIDOCAINE 5% PATCH 1 PATCH TRANSDERM (08:42)
[2022-09-20] MEDS: THERAPEUTIC MULTIVITAMINS/MINERALS TAB (*BKC) 1 TABLET PO (08:42)
[2022-09-20] MEDS: polyethylene glycoL 3350 17 GM POWD.PACK PO (08:42)
[2022-09-20] MEDS: PANTOPRAZOLE 40 MG TABLET PO (08:42)
[2022-09-20] MEDS: NICOTINE (*PBKC) 21 MG PATCH 1 PATCH TRANSDERM (09:47)
--- NOTE | 2022-09-20 11:48 | WPDPN ---
Progress Note: A&P Assessment and Plan (1) Acute respiratory failure with hypoxia and hypercapnia: Code(s): J96.01 - Acute respiratory failure with hypoxia; J96.02 - Acute respiratory failure with hypercapnia Status: Acute Assessment and Plan: continue steroids and bronchodilators and incentive spirometry 09/19 receiving oxygen at 2 liters/minute by nasal cannula 09/20/2022 interval history: Today patient remains somnolent states feels tired and fatigued, denies any chest pain or shortness of breath, did not show any sign of withdrawal, will continue to monitor will follow patient's electrolytes, will have a PT OT work with the patient and further recommendation to follow. (2) Alcohol intoxication: Code(s): F10.929 - Alcohol use, unspecified with intoxication, unspecified Status: Acute Assessment and Plan: [facility] protocol. Thiamine and folic acid supplementation. No signs of withdrawal 09/18 reduce Librium due to excessive drowsiness 09/19 Reduced Librium 25 mg q 6 hrs and d/c after last dose today (3) Suicidal ideation: Code(s): R45.851 - Suicidal ideations Status: Acute Assessment and Plan: 09/18 no thoughts of suicide expressed (4) COPD exacerbation: Code(s): J44.1 - Chronic obstructive pulmonary disease with (acute) exacerbation Status: Acute Assessment and Plan: Continue scheduled bronchodilators and oral prednisone (5) Generalized weakness: Code(s): R53.1 - Weakness Status: Acute Assessment and Plan: Secondary to alcohol intoxication, dehydration, and deconditioning. Fall precautions. PT and OT (6) Heart failure with preserved ejection fraction: Code(s): I50.30 - Unspecified diastolic (congestive) heart failure Status: Acute Assessment and Plan: He is clinically compensated. Monitor volume status (7) COVID-19: Code(s): U07.1 - COVID-19 Status: Acute Assessment and Plan: He continues to test positive for COVID, no need for isolation as he 1st tested positive on 08/23/2022. (8) Mood disorder: Code(s): F39 - Unspecified mood [affective] disorder Status: Acute Assessment and Plan: Will need f/u w/ PCP, possibly psych, tx for AUD Subjective Date/time seen: 09/20/22 11:48 Interval history: Tired. Short of breath with ADLs. ApneaLink done on 09/18 PM as interpreted as inaccurate, though NL while on cpap. Has used cpap at night for the past 2 years. Using in hospital but was not using while staying in hotel while house was worked on. Supposed to go back to his home upon discharge. Denied chest pain. Denied edema. Denied GI or issues of the no bowel movement for 2 days. Denied abnormal bleeding. Denied focal weakness. States his health has been declining for the past 2 years. Lives alone. Has no family to help out. Still smokes a few cigarettes per day. Drinks a few times a week and smokes marijuana a few times a week. Denies using these to excess. Currently living in a hotel because there is some work being done on his home in [facility]. 09/20/2022 interval history: Today patient remains somnolent states feels tired and fatigued, denies any chest pain or shortness of breath, did not show any sign of withdrawal, will continue to monitor will follow patient's electrolytes, will have a PT OT work with the patient and further recommendation to follow. Review of Systems Review of Systems: Twelve systems were reviewed. He denies history of alcohol withdrawal seizures. No anxiety, shakes, sweats, or hallucinations. He reported to the nurse once he was admitted to the floor that he was quite depressed and had thoughts of suicide with plans to overdose on medication and alcohol. He denies prior suicide attempt. Except as documented, all other systems were reviewed and are negative. Objective Data Vital Sig
[2022-09-20 11:49] LABS: Basophils Percent Auto 0.2 % (0.2-1.2); Eosinophils Absolute Auto 0.1 K/mm3 (0-0.3); Eosinophils Percent Auto 1.3 % (0-4.4); Hematocrit 37.7 % (42.0-52.0); Hemoglobin 12.2 g/dL (14.0-18.0); Immature Granulocyte Absolute 0.07 K/mm3 (0.00-0.031); Immature Granulocyte Percent A 0.6 % (0-0.5); Lymphocytes Absolute Auto 2.67 K/mm3 (0.9-3.2); Lymphocytes Percent Auto 23.9 % (18.3-44.2); Mean Corpuscular HGB Conc 32.4 g/dl (32-36); Mean Corpuscular Hemoglobin 34.7 pg (26-34); Mean Corpuscular Volume 107.1 fl (80-100); Mean Platelet Volume 9.8 fl (7.4-10.4); Monocytes Absolute Auto 0.8 K/mm3 (0.1-0.6); Monocytes Percent Auto 7.3 % (2.6-8.5); Neutrophils Absolute Auto 7.4 K/mm3 (1.3-6.7); Neutrophils Percent Auto 66.7 % (45.5-73.1); Platelet Count Result 233 k/mm3 (150-375); Red Blood Count 3.52 M/mm3 (4.6-6.20); Red Cell Distribution Width 14.4 % (11.5-14.5); White Blood Count 11.2 K/mm3 (4.5-10.0)
[2022-09-20 12:02] LABS: Blood Urea Nitrogen 19 mg/dL (9-20); Calcium 9.1 mg/dL (8.4-10.2); Carbon Dioxide > 40 mmol/L (22-30); Chloride 89 mmol/L (98-107); Estimated CRCL calculation 92 ml/min; Estimated Glomerular Filt Rate > 60; Glucose 82 mg/dL (65-110); Magnesium 1.7 mg/dL (1.6-2.3); Potassium 4.5 mmol/L (3.4-5.0); Sodium 131 mmol/L (137-145)
[2022-09-20] MEDS: SIMVASTATIN 20 MG TABLET 40 MG PO (20:35)
[2022-09-20] MEDS: traZODone HCL 50 MG TABLET 100 MG PO (20:36)
[2022-09-21] VITALS (27 sets, daily range): BP systolic 99–128; BP diastolic 58–86; PULSE 70–100; RESP 18–20; TEMP 36–36.7; O2SAT 87–100
[2022-09-21] MEDS: IPRATROPIUM BR 0.02% INH SOLN 0.5 MG/2.5 ML VIAL INHALATION ×4 (03:05→20:09)
[2022-09-21] MEDS: LEVALBUTEROL NEB 1.25 MG/3 ML INHALATION ×4 (03:06→20:09)
[2022-09-21 05:30] LABS: Hematocrit 36.7 % (42.0-52.0); Hemoglobin 11.9 g/dL (14.0-18.0); Mean Corpuscular HGB Conc 32.4 g/dl (32-36); Mean Corpuscular Hemoglobin 35.2 pg (26-34); Mean Corpuscular Volume 108.6 fl (80-100); Mean Platelet Volume 9.2 fl (7.4-10.4); Platelet Count Result 220 k/mm3 (150-375); Red Blood Count 3.38 M/mm3 (4.6-6.20); Red Cell Distribution Width 14.3 % (11.5-14.5)
[2022-09-21 05:52] LABS: Blood Urea Nitrogen 19 mg/dL (9-20); Carbon Dioxide > 40 mmol/L (22-30); Chloride 87 mmol/L (98-107); Estimated CRCL calculation 73 ml/min; Estimated Glomerular Filt Rate > 60; Glucose 96 mg/dL (65-110); Magnesium 1.7 mg/dL (1.6-2.3); Potassium 4.8 mmol/L (3.4-5.0); Sodium 132 mmol/L (137-145)
[2022-09-21] MEDS: FLUTICASONE/SALMETEROL 115-21 MCG INHALER 1 PUFF 2 PUFF INHALATION ×2 (07:52→20:09)
[2022-09-21] MEDS: UMECLIDINIUM BROMIDE 62.5 MCG ELLIPTA 1 PUFF INHALATION (07:53)
[2022-09-21] MEDS: predniSONE 20 MG TABLET 40 MG PO (09:08)
[2022-09-21] MEDS: FOLIC ACID 1 MG TABLET PO (09:08)
[2022-09-21] MEDS: CITALOPRAM HYDROBROMIDE 20 MG TABLET PO (09:08)
[2022-09-21] MEDS: PROPRANOLOL HCL 20 MG TABLET PO ×2 (09:08→21:15)
[2022-09-21] MEDS: THIAMINE HCL 100 MG TABLET PO (09:08)
[2022-09-21] MEDS: LOSARTAN POTASSIUM 25 MG TABLET PO ×2 (09:08→16:46)
[2022-09-21] MEDS: THERAPEUTIC MULTIVITAMINS/MINERALS TAB (*BKC) 1 TABLET PO (09:08)
[2022-09-21] MEDS: PANTOPRAZOLE 40 MG TABLET PO (09:09)
[2022-09-21] MEDS: SENNOSIDES 8.6 MG TABLET PO (09:09)
[2022-09-21] MEDS: NICOTINE (*PBKC) 21 MG PATCH 1 PATCH TRANSDERM (09:09)
[2022-09-21] MEDS: polyethylene glycoL 3350 17 GM POWD.PACK PO (09:09)
[2022-09-21] MEDS: LIDOCAINE 5% PATCH 1 PATCH TRANSDERM (09:14)
[2022-09-21] MEDS: LEVALBUTEROL HFA (*SP) 15 GM INHALER 2 PUFF INHALATION (09:54)
--- NOTE | 2022-09-21 10:55 | WPDPN ---
Progress Note: A&P Assessment and Plan (1) Acute respiratory failure with hypoxia and hypercapnia: Code(s): J96.01 - Acute respiratory failure with hypoxia; J96.02 - Acute respiratory failure with hypercapnia Status: Acute Assessment and Plan: continue steroids and bronchodilators and incentive spirometry 09/19 receiving oxygen at 2 liters/minute by nasal cannula 09/21/2022 interval history: on 09/20 patient remained somnolent stated feels tired and fatigued, denied any chest pain or shortness of breath, did not show any sign of withdrawal, today up and working with PT stats feels better today and wants to work with PT today and tomorrwo before dicharged tomorrow, will continue to monitor will follow patient's electrolytes, will have a PT OT work with the patient and further recommendation to follow. (2) Alcohol intoxication: Code(s): F10.929 - Alcohol use, unspecified with intoxication, unspecified Status: Acute Assessment and Plan: [facility] protocol. Thiamine and folic acid supplementation. No signs of withdrawal 09/18 reduce Librium due to excessive drowsiness 09/19 Reduced Librium 25 mg q 6 hrs and d/c after last dose today (3) Suicidal ideation: Code(s): R45.851 - Suicidal ideations Status: Acute Assessment and Plan: 09/18 no thoughts of suicide expressed (4) COPD exacerbation: Code(s): J44.1 - Chronic obstructive pulmonary disease with (acute) exacerbation Status: Acute Assessment and Plan: Continue scheduled bronchodilators and oral prednisone (5) Generalized weakness: Code(s): R53.1 - Weakness Status: Acute Assessment and Plan: Secondary to alcohol intoxication, dehydration, and deconditioning. Fall precautions. PT and OT (6) Heart failure with preserved ejection fraction: Code(s): I50.30 - Unspecified diastolic (congestive) heart failure Status: Acute Assessment and Plan: He is clinically compensated. Monitor volume status (7) COVID-19: Code(s): U07.1 - COVID-19 Status: Acute Assessment and Plan: He continues to test positive for COVID, no need for isolation as he 1st tested positive on 08/23/2022. (8) Mood disorder: Code(s): F39 - Unspecified mood [affective] disorder Status: Acute Assessment and Plan: Will need f/u w/ PCP, possibly psych, tx for AUD Subjective Date/time seen: 09/21/22 10:55 Interval history: Tired. Short of breath with ADLs. ApneaLink done on 09/18 PM as interpreted as inaccurate, though NL while on cpap. Has used cpap at night for the past 2 years. Using in hospital but was not using while staying in hotel while house was worked on. Supposed to go back to his home upon discharge. Denied chest pain. Denied edema. Denied GI or issues of the no bowel movement for 2 days. Denied abnormal bleeding. Denied focal weakness. States his health has been declining for the past 2 years. Lives alone. Has no family to help out. Still smokes a few cigarettes per day. Drinks a few times a week and smokes marijuana a few times a week. Denies using these to excess. Currently living in a hotel because there is some work being done on his home in [facility]. 09/21/2022 interval history: on 09/20 patient remained somnolent stated feels tired and fatigued, denied any chest pain or shortness of breath, did not show any sign of withdrawal, today up and working with PT stats feels better today and wants to work with PT today and tomorrwo before dicharged tomorrow, will continue to monitor will follow patient's electrolytes, will have a PT OT work with the patient and further recommendation to follow. Review of Systems Review of Systems: Twelve systems were reviewed. He denies history of alcohol withdrawal seizures. No anxiety, shakes, sweats, or hallucinations. He reported to the nurse once he was admitted t
--- NOTE | 2022-09-21 15:57 | HOMEO2EVAL ---
Evaluation was performed at [facility] Home Oxygen Evaluation RC: Home Oxygen (O2) Evaluation Start: 09/19/22 07:00 Freq: ONCE Status: Active Protocol: RPE Activity Type Activity Date Activity User E-sign Co-sign Detail Recorded Client Recorded Date Recorded By Document 09/21/22 15:15 [id number] [id number] 09/21/22 15:53 ABBY 09/21/22 15:15 Home O2 Evaluation [Oxygen] -Test Phase Resting -Oxygen Delivery Room Air [Pulse Oximetry] -Pulse Oximetry (90-100 %) 92 [Pulse Rate] -Pulse Rate (60-100 beats/min) 75
--- NOTE | 2022-09-21 15:58 | PCRCNOTE ---
HOME O2 EVAL COMPLETED. PT REQUIRES 2 L HOME O2 WITH ACTIVITY, ROOM AIR AT REST.
[2022-09-21] MEDS: traZODone HCL 50 MG TABLET 100 MG PO (21:15)
[2022-09-21] MEDS: SIMVASTATIN 20 MG TABLET 40 MG PO (21:15)
[2022-09-22] VITALS (18 sets, daily range): BP systolic 114–136; BP diastolic 69–88; PULSE 71–94; RESP 18–20; TEMP 36.3–36.7; O2SAT 90–98
[2022-09-22] MEDS: IPRATROPIUM BR 0.02% INH SOLN 0.5 MG/2.5 ML VIAL INHALATION ×4 (01:24→19:52)
[2022-09-22] MEDS: LEVALBUTEROL NEB 1.25 MG/3 ML INHALATION ×4 (01:24→19:53)
[2022-09-22 05:38] LABS: Hematocrit 36.6 % (42.0-52.0); Hemoglobin 11.6 g/dL (14.0-18.0); Mean Corpuscular HGB Conc 31.7 g/dl (32-36); Mean Corpuscular Hemoglobin 34.8 pg (26-34); Mean Corpuscular Volume 109.9 fl (80-100); Mean Platelet Volume 9.7 fl (7.4-10.4); Platelet Count Result 222 k/mm3 (150-375); Red Blood Count 3.33 M/mm3 (4.6-6.20); Red Cell Distribution Width 14.6 % (11.5-14.5); White Blood Count 15.2 K/mm3 (4.5-10.0)
[2022-09-22 05:52] LABS: Blood Urea Nitrogen 24 mg/dL (9-20); Calcium 8.8 mg/dL (8.4-10.2); Carbon Dioxide > 40 mmol/L (22-30); Chloride 88 mmol/L (98-107); Estimated CRCL calculation 82 ml/min; Estimated Glomerular Filt Rate > 60; Glucose 81 mg/dL (65-110); Magnesium 1.8 mg/dL (1.6-2.3); Potassium 4.7 mmol/L (3.4-5.0); Sodium 132 mmol/L (137-145)
[2022-09-22] MEDS: UMECLIDINIUM BROMIDE 62.5 MCG ELLIPTA 1 PUFF INHALATION (07:33)
[2022-09-22] MEDS: FLUTICASONE/SALMETEROL 115-21 MCG INHALER 1 PUFF 2 PUFF INHALATION ×2 (07:34→19:53)
[2022-09-22] MEDS: predniSONE 20 MG TABLET 40 MG PO (08:18)
[2022-09-22] MEDS: FOLIC ACID 1 MG TABLET PO (08:19)
[2022-09-22] MEDS: NICOTINE (*PBKC) 21 MG PATCH 1 PATCH TRANSDERM (08:19)
[2022-09-22] MEDS: THERAPEUTIC MULTIVITAMINS/MINERALS TAB (*BKC) 1 TABLET PO (08:19)
[2022-09-22] MEDS: LOSARTAN POTASSIUM 25 MG TABLET PO ×2 (08:19→16:33)
[2022-09-22] MEDS: LIDOCAINE 5% PATCH 1 PATCH TRANSDERM (08:19)
[2022-09-22] MEDS: CITALOPRAM HYDROBROMIDE 20 MG TABLET PO (08:19)
[2022-09-22] MEDS: polyethylene glycoL 3350 17 GM POWD.PACK PO (08:20)
[2022-09-22] MEDS: PROPRANOLOL HCL 20 MG TABLET PO ×2 (08:20→20:30)
[2022-09-22] MEDS: PANTOPRAZOLE 40 MG TABLET PO (08:20)
[2022-09-22] MEDS: SENNOSIDES 8.6 MG TABLET PO (08:23)
[2022-09-22] MEDS: THIAMINE HCL 100 MG TABLET PO (08:23)
--- NOTE | 2022-09-22 10:46 | PCNWS ---
Weekly nutritional screen. Patient is tolerating current diet with adequate intake. No weight loss reported. No nutritional needs at this time.
--- NOTE | 2022-09-22 13:15 | WPDPN ---
Progress Note: A&P Assessment and Plan (1) Acute respiratory failure with hypoxia and hypercapnia: Code(s): J96.01 - Acute respiratory failure with hypoxia; J96.02 - Acute respiratory failure with hypercapnia Status: Acute Assessment and Plan: continue steroids and bronchodilators and incentive spirometry 09/19 receiving oxygen at 2 liters/minute by nasal cannula 09/22/2022 interval history: on 09/20 patient remained somnolent stated feels tired and fatigued, denied any chest pain or shortness of breath, did not show any sign of withdrawal, on 09/21 up and working with PT stats feels better, and wants to work with PT and dichargedon 09/22 however today patient is sitting in the chair stats he is too weak to go home as he lives alone and need more PT to help him function independently at home, discussed with property caretaker, will try to find rehab place, will continue to monitor will follow patient's electrolytes, will have a PT OT work with the patient and further recommendation to follow. (2) Alcohol intoxication: Code(s): F10.929 - Alcohol use, unspecified with intoxication, unspecified Status: Acute Assessment and Plan: [facility] protocol. Thiamine and folic acid supplementation. No signs of withdrawal 09/18 reduce Librium due to excessive drowsiness 09/19 Reduced Librium 25 mg q 6 hrs and d/c after last dose today (3) Suicidal ideation: Code(s): R45.851 - Suicidal ideations Status: Acute Assessment and Plan: 09/18 no thoughts of suicide expressed (4) COPD exacerbation: Code(s): J44.1 - Chronic obstructive pulmonary disease with (acute) exacerbation Status: Acute Assessment and Plan: Continue scheduled bronchodilators and oral prednisone (5) Generalized weakness: Code(s): R53.1 - Weakness Status: Acute Assessment and Plan: Secondary to alcohol intoxication, dehydration, and deconditioning. Fall precautions. PT and OT (6) Heart failure with preserved ejection fraction: Code(s): I50.30 - Unspecified diastolic (congestive) heart failure Status: Acute Assessment and Plan: He is clinically compensated. Monitor volume status (7) COVID-19: Code(s): U07.1 - COVID-19 Status: Acute Assessment and Plan: He continues to test positive for COVID, no need for isolation as he 1st tested positive on 08/23/2022. (8) Mood disorder: Code(s): F39 - Unspecified mood [affective] disorder Status: Acute Assessment and Plan: Will need f/u w/ PCP, possibly psych, tx for AUD Subjective Date/time seen: 09/22/22 13:15 Interval history: Tired. Short of breath with ADLs. ApneaLink done on 09/18 PM as interpreted as inaccurate, though NL while on cpap. Has used cpap at night for the past 2 years. Using in hospital but was not using while staying in hotel while house was worked on. Supposed to go back to his home upon discharge. Denied chest pain. Denied edema. Denied GI or issues of the no bowel movement for 2 days. Denied abnormal bleeding. Denied focal weakness. States his health has been declining for the past 2 years. Lives alone. Has no family to help out. Still smokes a few cigarettes per day. Drinks a few times a week and smokes marijuana a few times a week. Denies using these to excess. Currently living in a hotel because there is some work being done on his home in [facility]. 09/22/2022 interval history: on 09/20 patient remained somnolent stated feels tired and fatigued, denied any chest pain or shortness of breath, did not show any sign of withdrawal, on 09/21 up and working with PT stats feels better, and wants to work with PT and dichargedon 09/22 however today patient is sitting in the chair stats he is too weak to go home as he lives alone and need more PT to help him function independently at home, discussed with property caretaker, will try to fin
--- NOTE | 2022-09-22 16:02 | PM.DS ---
DS: Admitting Diagnosis Discharge Date 09/22/2022 Admitting Diagnosis Shortness of breath and back pain. DS: Discharge Diagnosis Discharge Diagnosis (1) Acute respiratory failure with hypoxia and hypercapnia: Code(s): J96.01 - Acute respiratory failure with hypoxia; J96.02 - Acute respiratory failure with hypercapnia Status: Acute Assessment and Plan: continue steroids and bronchodilators and incentive spirometry 09/19 receiving oxygen at 2 liters/minute by nasal cannula 09/22/2022 interval history: on 09/20 patient remained somnolent stated feels tired and fatigued, denied any chest pain or shortness of breath, did not show any sign of withdrawal, on 09/21 up and working with PT stats feels better, and wants to work with PT and dichargedon 09/22 however today patient is sitting in the chair stats he is too weak to go home as he lives alone and need more PT to help him function independently at home, discussed with career counselor, will try to find rehab place, will continue to monitor will follow patient's electrolytes, will have a PT OT work with the patient and further recommendation to follow. (2) Alcohol intoxication: Code(s): F10.929 - Alcohol use, unspecified with intoxication, unspecified Status: Acute Assessment and Plan: [facility] protocol. Thiamine and folic acid supplementation. No signs of withdrawal 09/18 reduce Librium due to excessive drowsiness 09/19 Reduced Librium 25 mg q 6 hrs and d/c after last dose today (3) Suicidal ideation: Code(s): R45.851 - Suicidal ideations Status: Acute Assessment and Plan: 09/18 no thoughts of suicide expressed (4) COPD exacerbation: Code(s): J44.1 - Chronic obstructive pulmonary disease with (acute) exacerbation Status: Acute Assessment and Plan: Continue scheduled bronchodilators and oral prednisone (5) Generalized weakness: Code(s): R53.1 - Weakness Status: Acute Assessment and Plan: Secondary to alcohol intoxication, dehydration, and deconditioning. Fall precautions. PT and OT (6) Heart failure with preserved ejection fraction: Code(s): I50.30 - Unspecified diastolic (congestive) heart failure Status: Acute Assessment and Plan: He is clinically compensated. Monitor volume status (7) COVID-19: Code(s): U07.1 - COVID-19 Status: Acute Assessment and Plan: He continues to test positive for COVID, no need for isolation as he 1st tested positive on 08/23/2022. (8) Mood disorder: Code(s): F39 - Unspecified mood [affective] disorder Status: Acute Assessment and Plan: Will need f/u w/ PCP, possibly psych, tx for AUD DS: Summary Hospital Course Reason for hospitalization: Shortness of breath and back pain. Narrative: This is a 62-year-old male smoker with history of daily alcohol use, hypertension, dyslipidemia, congestive heart failure, DVT and PE, COPD, and anxiety who presented to the emergency department via EMS from a local motel for evaluation of shortness of breath and back pain. He is known to the hospitalist service from a recent admission earlier this month with COPD exacerbation, congestive heart failure, and COVID-19. He has not been feeling well for several days with body aches, cough productive of clear phlegm, nausea, dry heaves, diarrhea, and mild shortness of breath. He has gotten so weak that he has had a couple of falls and affect EMS was called for lift assist last night. He apparently declined transport at that time but reconsider this morning. He denies fever, headache, vertigo, focal weakness, paresthesias, syncope, near syncope, head trauma, sinus congestion, sore throat, chest pain, pleuritic pain, and dysuria. On EMS arrival his SpO2 was in the low 80s and he was placed on 4 L. He has been afebrile since arrival to the ED. Blood pressures have been stable. He has been persistently tachycardic and
[2022-09-22] MEDS: SIMVASTATIN 20 MG TABLET 40 MG PO (20:31)
[2022-09-22] MEDS: traZODone HCL 50 MG TABLET 100 MG PO (20:31)
== END 2022-09-22 20:45 | DRG 189 ==
LOC: ANHED 10:33 → ANHIMU 12:29 → ANHICU 20:47 → ANH2MED 09-16 18:13
PROVIDERS: Internal Medicine; Physician Assistant; Admitting Provider Hospitalist; Emergency Provider Emergency Medicine; PCP Hospitalist; Visit Provider Family Medicine
DX: J96.01 Acute respiratory failure with hypoxia (principal); U07.1 COVID-19; J44.1 Chronic obstructive pulmonary disease with (acute) exacerbation; I50.32 Chronic diastolic (congestive) heart failure; R45.851 Suicidal ideations; E87.1 Hypo-osmolality and hyponatremia; J96.02 Acute respiratory failure with hypercapnia; I11.0 Hypertensive heart disease with heart failure; E78.5 Hyperlipidemia, unspecified; E87.6 Hypokalemia; E86.0 Dehydration; F17.210 Nicotine dependence, cigarettes, uncomplicated; F10.129 Alcohol abuse with intoxication, unspecified; F41.9 Anxiety disorder, unspecified; Z86.718 Personal history of other venous thrombosis and embolism
CPT/HCPCS: 36415; 36600; 71045; 71275; 80048; 80053; 80307; 81003; 82375; 82805; 83050; 83735; 84439; 84443; 84480; 85025; 85027; 87637; 93005; 94002; 94003; 94618; 94640; 94762; 96361; 96374; 96375; 97110; 97116; 97161; 97165; 97530; 97535; 99285; A9270; G0378; J2930; J3411; J3475; J7030; J7512; Q9967